=== PATIENT | male | born 2000 | race Caucasian/White ===

== ENCOUNTER 2023-11-12 09:03 | Outpatient (OUT) | payer MEDICAID, SELFPAY ==
[2023-11-12 09:50] LABS: Basophils Percent Auto 0.4 % (0.2-2.0); Eosinophils Percent Auto 0.3 % (0.9-7.0); Hematocrit 45.2 % (42.0-54.0); Hemoglobin 14.9 g/dL (14.0-18.0); Immature Granulocytes Abs Auto 0.02 10^3/uL (0.00-0.03); Immature Granulocytes Pct Auto 0.3 % (0.0-0.5); Lymphocytes Percent Auto 28.7 % (20.5-60.0); Mean Corpuscular Hemoglobin 27.9 pg (25.9-34.0); Mean Corpuscular Volume 84.6 fL (80.0-94.0); Monocytes Absolute Auto 0.7 10^3/uL (0.3-0.8); Monocytes Percent Auto 9.3 % (1.7-12.0); Neutrophils Absolute Auto 4.3 10^3/uL (1.4-6.5); Platelet Count 262 10^3/uL (150-450); Red Blood Count 5.34 10^6/uL (4.70-6.10); Red Cell Distribution Width 13.6 % (11.0-15.0)
[2023-11-12 10:46] LABS: Alanine Aminotransferase 31 U/L (16-63); Albumin Level 3.7 g/dL (3.4-5.0); Alkaline Phosphatase 131 U/L (46-116); Anion Gap 14.1; Aspartate Amino Transferase 18 U/L (15-37); BUN Creatinine Ratio 12.4; Bilirubin Total 0.3 mg/dL (0.2-1.0); Carbon Dioxide 23.9 mmol/L (21.0-32.0); Chloride 104 mmol/L (98-107); Chol HDL Ratio 5.8; Cholesterol 180 mg/dL (<=200); Estimated GFR (African America >60 (>=60); Estimated GFR (Non-African Ame >60 (>=60); Free T3 3.24 pg/mL (2.18-3.98); Globulin 3.7 g/dL; Glucose 102 mg/dL (74-106); HDL Cholesterol 31 mg/dL (40-60); Sodium 138 mmol/L (136-145); Thyroid Stimulating Hormone 1.049 uIU/mL (0.358-3.740); Total Protein 7.4 g/dL (6.4-8.2); Triglycerides 112 mg/dL (<=150); VLDL CHOLESTEROL 22.4 mg/dL
[2023-11-12 11:29] LABS: Estimated Average Glucose 100 mg/dL; Glycohemoglobin A1C 5.1 % (4.5-6.2)
[2023-11-13 11:11] LABS: Carbamazepine(Tegretol),S <0.5 ug/mL (4.0-12.0)
[2023-11-13 14:11] LABS: Insulin 60.6 uIU/mL (2.6-24.9)
== END 2023-11-12 09:04 | disposition home or self-care (01) ==
LOC: LAB 09:06
PROVIDERS: PCP Family Medicine; Visit Provider Family Medicine
DX: R53.83 Other fatigue (principal); F84.5 Asperger's syndrome; F90.9 Attention-deficit hyperactivity disorder, unspecified type; R73.09 Other abnormal glucose; D64.9 Anemia, unspecified
CPT/HCPCS: 36415; 80053; 80061; 80156; 83036; 83525; 83540; 84436; 84443; 84481; 85025

== ENCOUNTER 2023-12-01 20:49 | Outpatient (OUT) | payer MEDICAID, SELFPAY ==
--- OUTSIDE RECORDS SUMMARY | 2023-12-01 20:52 | XMS_ITS | CCD ---
Author Organization [facility] Care Team Providers Care Teaching Fellow Name Role Phone KAYLI ., DR GRANDA Admitting Unavailable HOY ., DR GRANDA Attending Unavailable HOY ., DR GRANDA Primary Care Unavailable HOY ., DR GRANDA Admitting Unavailable HOY ., DR GRANDA Attending Unavailable HOY ., DR GRANDA Primary Care Unavailable HOY ., DR GRANDA Consulting Unavailable MISC, DR DAILEY Admitting Unavailable MISC, DR DAILEY Attending Unavailable HOY ., DR GRANDA Primary Care Unavailable MISC, DR DAILEY Consulting Unavailable HOY ., DR GRANDA Admitting Unavailable HOY ., DR GRANDA Attending Unavailable HOY ., DR GRANDA Primary Care Unavailable Matt Conteh Attending Unavailab le Matt Conteh Admitting Unavailab le NON STAFF Primary Care Unavailable JESUS ALBERTO MILAN Primary Care Unavailable HAN PRITCHARD Attending Unavailable HAN PRITCHARD Referring Unavailable JESUS ALBERTO MILAN Primary Care Unavailable Problems Active Problems Problem Classification Problem Date Documented Da te Episodic/Chronic Nutritional deficiencies (1 source) Vitamin D deficiency, unspecified; Translations: [VITAMIN D DEFICIENCY UNSPECIFIED] Onset: 03-30-2022 Chronic Other connective tissue disease (1 source) Hand pain Onset: 08-15-2023 Episodic Superficial injury; contusion (1 source) Contusion of right hand, initial encounter; Translations: [Contusion of right hand, initial encounter] Onset: 08-15-2023 Episodic Unclassified (1 source) Hand Injury Onset: 08-15-2023 Past or Other Problems Problem Classification Problem Date Documented Da te Episodic/Chronic Other aftercare (5 sources) Other watermaster (current) drug therapy; Translations: [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 No gross dislocations or subluxations. X-ray density bony structures grossly subjectively normal. IMPRESSION: * No acute fracture visualized Finalized by Ana Laura Sullivan MD on 08/15/2023 8:32 PM Normal [facility] OXCARBAZEPINE / TRILEPTALon 03-31-2022 Oxcarbazepine 6 ug/mL Critically low 10-35 [facility] Comment on above: Result Comment: This test was developed and its performance characteristics determined by [employer]. It has not been cleared or approved by the Food and Drug Administration. Detection Limit = 1 Performed By: #### O XCARB #### [facility] [address] [place] [address] Dr. Alicja Shannon INSULINon 03-28-2022 Insulin 25.2 uIU/mL Critically high 2.6-24.9 [facility] Comment on above: Performed By: #### I NSULIN #### [facility] [address] [place] [address] Dr. Alicja Shannon CBC AUTO DIFFon 03-27-2022 BASO # 0.0 103/ul Normal 0.0-0.1 [facility] Comment on above: Performed By: #### C BC #### [facility] [address] [place] [address] Dr. Alicja Shannon Basophils/100 WBC (Bld) 0.4 % Normal 0.2-2.0 [facility] Comment on above: Performed By: #### C BC #### [facility] [address] [place] [address] Dr. Alicja Shannon EO # 0.1 103/ul Normal 0.0-0.7 [facility] Comment on above: Performed By: #### C BC #### [facility] [address] [place] [address] Dr. Alicja Shannon Eosinophils/100 WBC (Bld) 0.6 % Critically low 0.9-7.0 [facility] Comment on above: Performed By: #### C BC #### [facility] [address] [place] [address] Dr. Alicja Shannon Erythrocyte distribution width (RBC) [Ratio] 13.3 % Normal 11.0-15.0 [facility] Comment on above: Performed By: #### C BC #### [facility] [address] [place] [address] Dr. Alicja Shannon Hematocrit (Bld) [Volume fraction] 42.6 % Normal 42.0-54.0 [facility] Comment on above: Performed By: #### C BC #### [facility] [address] [place] [address] Dr. Alicja Shannon Hemoglobin (Bld) [Mass/Vol] 14.2 g/dL Normal 14.0-18.0 [facility] Comment on above: Performed By: #### C BC #### [facility] [address] [place] [address] Dr. Alicja Shannon IG # 0.04 10e3/ul Critically high 0.00-0.03 [facility] Comment on above: Performed By: #### C BC #### [facility] [address] [place] [address] Dr. Alicja Shannon IG % 0.4 % Normal 0.0-0.5 [facility] Comment on above: Performed By: #### C BC #### [facility] [address] [place] [address] Dr. Alicja Shannon LYMPH # 2.6 103/ul Normal 1.2-3.8 [facility] Comment on above: Performed By: #### C BC #### [facility] [address] [place] [address] Dr. Alicja Shannon Lymphocytes/100 WBC (Bld) 29.4 % Normal 20.5-60.0 [facility] Comment on above: Performed By: #### C BC #### [facility] [address] [place] [address] Dr. Alicja Shannon MANUAL DIFF REQ NO Normal [facility] Comment on above: Performed By: #### C BC #### [facility] [address] [address] [address] Alicja Shannon MCH (RBC) [Entitic mass] 27.5 pg Normal 25.9-34.0 [facility] Comment on above: Performed By: #### C BC #### [facility] [address] [address] [address] Alicja Shannon MCHC (RBC) [Mass/Vol] 33.3 g/dL Normal 29.9-35.2 [facility] Comment on above: Performed By: #### C BC #### [facility] [address] [place] [address] Dr. Alicja Shannon MCV (RBC) [Entitic vol] 82.6 fL Normal 80.0-94.0 [facility] Comment on above: Performed By: #### C BC #### [facility] [address] [place] [address] Dr. Alicja Shannon MONO # 0.5 103/ul Normal 0.3-0.8 [facility] Comment on above: Performed By: #### C BC #### [facility] [address] [place] [address] Dr. Alicja Shannon Monocytes/100 WBC (Bld) 5.2 % Normal 1.7-12.0 [facility] Comment on above: Performed By: #### C BC #### [facility] [address] [place] [address] Dr. Alicja Shannon NEUT # 5.7 103/ul Normal 1.4-6.5 [facility] Comment on above: Performed By: #### C BC #### [facility] [address] [place] [address] Dr. Alicja Shannon Neutrophils/100 WBC (Bld) 64.0 % Normal 43.0-75.0 [facility] Comment on above: Performed By: #### C BC #### [facility] [address] [place] [address] Dr. Alicja Shannon Platelet mean volume (Bld) [Entitic vol] 9.7 fL Normal 9.5-13.5 [facility] Comment on above: Performed By: #### C BC #### [facility] [address] [address] [address] Alicja Shannon PLT 322 103/ul Normal 150-450 [facility] Comment on above: Performed By: #### C BC #### [facility] [address] [address] [address] Alicja Shannon RBC 5.16 106/ul Normal 4.70-6.10 [facility] Comment on above: Performed By: #### C BC #### [facility] [address] [address] [address] Alicja Shannon WBC 9.0 103/ul Normal 4.0-11.0 [facility] Comment on above: Performed By: #### C BC #### [facility] [address] [place] [address] Dr. Alicja Shannon FREE THYROXINE INDEX T7on FTI 2.21 Normal 1.30-4.50 [facility] Comment on above: Performed By: #### B 12FOL, VITAD, IRON #### [facility] [address] [address] [address] Alicja Shannon T3U 32.0 % Critically low 33.0-40.0 [facility] Comment on above: Performed By: #### B 12FOL, VITAD, IRON #### [facility] [address] [place] [address] Dr. Alicja Shannon T4 [Mass/Vol] 6.90 ug/dL Normal 4.50-12.10 [facility] Comment on above: Performed By: #### B 12FOL, VITAD, IRON #### [facility] [address] [address] [address] Alicja Shannon GLYCOHEMOGLOBIN A1Con 2022 ADA RECOMMENDATION SEE BELOW Normal [facility] Comment on above: Result Comment: ADA RECOMMENDED LIMIT 4.0 - 6.0 ADA THERAPEUTIC TARGET < 7.0 ACTION SUGGESTED > 7.0 Performed By: #### A 1C #### [facility] [address] [place], [place] [id number] Dr. Alicja Shannon Glucose [Mass/Vol] 105 mg/dL Normal [facility] Comment on above: Performed By: #### A 1C #### [facility] [address] [address] [address] Alicja Shannon HbA1c (Bld) [Mass fraction] 5.3 % Normal 4.5-6.2 [facility] Comment on above: Performed By: #### A 1C #### [facility] [address] [address] [address] Alicja Shannon IRONon 03-27-2022 Iron [Mass/Vol] 52.0 ug/dL Critically low 65.0-175.0 [facility] Comment on above: Performed By: #### B 12FOL, VITAD, IRON #### [facility] [address] [place] [address] Dr. Alicja Shannon LIPID PROFILEon 03-27-2022 CHOL-HDL RATIO NORM SEE BELOW Normal [facility] Comment on above: Result Comment: 3.3 - 4.4 LOW RISK 4.4 - 7.1 AVERAGE RISK 7.1 - 11.0 MODERATE RISK >11.0 HIGH RISK Performed By: #### B 12FOL, VITAD, IRON #### [facility] [address] [place] [address] Dr. Alicja Shannon Cholesterol [Mass/Vol] 181 mg/dL Normal <=200 [facility] Comment on above: Performed By: #### B 12FOL, VITAD, IRON #### [facility] [address] [address] [address] Alicja Shannon Cholesterol in HDL [Mass/Vol] 29 mg/dL Critically low 40-60 [facility] Comment on above: Performed By: #### B 12FOL, VITAD, IRON #### [facility] [address] [place] [address] Dr. Alicja Shannon Cholesterol in LDL [Mass/Vol] 136.8 mg/dL Normal [facility] Comment on above: Performed By: #### B 12FOL, VITAD, IRON #### [facility] [address] [place] [address] Dr. Alicja Shannon Cholesterol.total/Cho lesterol in HDL [Mass ratio] 6.2 {ratio} Normal [facility] Comment on above: Performed By: #### B 12FOL, VITAD, IRON #### [facility] [address] [address] [address] Alicja Shannon HDL NORMAL > or = 60 mg/dl - LOW CARDIOVASCULAR RISK <40 mg/dl - HIGH CARDIOVASCULAR RISK Normal [facility] Comment on above: Performed By: #### B 12FOL, VITAD, IRON #### [facility] [address] [address] [address] Alicja Shannon LDL CALC NORMAL SEE BELOW Normal [facility] Comment on above: Result Comment: <100 mg/dl OPTIMAL 100 - 129 mg/dl NEAR OR ABOVE OPTIMAL 130 - 159 mg/dl BORDERLINE HIGH 160 - 189 mg/dl HIGH >190 mg/dl VERY HIGH Performed By: #### B 12FOL, VITAD, IRON #### [facility] [address] [address] [address] Alicja Shannon Triglyceride [Mass/Vol] 76 mg/dL Normal <=150 [facility] Comment on above: Performed By: #### B 12FOL, VITAD, IRON #### [facility] [address] [address] [address] Alicja Shannon VLDL CALC 15.2 mg/dL Normal [facility] Comment on above: Performed By: #### B 12FOL, VITAD, IRON #### [facility] [address] [address] [address] Alicja Shannon PROF 14(COMP METB)on 023 Albumin [Mass/Vol] 3.5 g/dL Normal 3.4-5.0 [facility] Comment on above: Performed By: #### T SH, CMP, T7, LIPID, URIC #### [facility] [address] [address] [address] Alicja Shannon Albumin/Globulin [Mass ratio] 0.8 {ratio} Normal [facility] Comment on above: Performed By: #### T SH, CMP, T7, LIPID, URIC #### [facility] [address] [address] [address] Alicja Shannon ALP [Catalytic activity/Vol] 139 U/L Critically high 46-116 [facility] Comment on above: Performed By: #### T SH, CMP, T7, LIPID, URIC #### [facility] [address] [address] [address] Alicja Shannon ALT [Catalytic activity/Vol] 24 U/L Normal 16-63 [facility] Comment on above: Performed By: #### T SH, CMP, T7, LIPID, URIC #### [facility] [address] [place] [address] Dr. Alicja Shannon Anion gap [Moles/Vol] 13.9 mmol/L Normal [facility] Comment on above: Performed By: #### T SH, CMP, T7, LIPID, URIC #### [facility] [address] [place] [address] Dr. Alicja Shannon AST [Catalytic activity/Vol] 18 U/L Normal 15-37 [facility] Comment on above: Performed By: #### T SH, CMP, T7, LIPID, URIC #### [facility] [address] [place] [address] Dr. Alicja Shannon Bilirubin [Mass/Vol] 0.2 mg/dL Normal 0.2-1.0 [facility] Comment on above: Performed By: #### T SH, CMP, T7, LIPID, URIC #### [facility] [address] [place] [address] Dr. Alicja Shannon Calcium [Mass/Vol] 8.7 mg/dL Normal 8.5-10.1 [facility] Comment on above: Performed By: #### T SH, CMP, T7, LIPID, URIC #### [facility] [address] [place] [address] Dr. Alicja Shannon Chloride [Moles/Vol] 104 mmol/L Normal 98-107 [facility] Comment on above: Performed By: #### T SH, CMP, T7, LIPID, URIC #### [facility] [address] [place] [address] Dr. Alicja Shannon CO2 [Moles/Vol] 24.9 mmol/L Normal 21.0-32.0 [facility] Comment on above: Performed By: #### T SH, CMP, T7, LIPID, URIC #### [facility] [address] [address] [address] Alicja Shannon Creatinine [Mass/Vol] 1.00 mg/dL Normal 0.70-1.30 [facility] Comment on above: Performed By: #### T SH, CMP, T7, LIPID, URIC #### [facility] [address] [address] [address] Alicja Shannon EGFR-AF CHINESE >60 Normal >=60 [facility] Comment on above: Performed By: #### T SH, CMP, T7, LIPID, URIC #### [facility] [address] [place] [address] Dr. Alicja Shannon EGFR-NON AF CHINESE >60 Normal >=60 [facility] Comment on above: Performed By: #### T SH, CMP, T7, LIPID, URIC #### [facility] [address] [address] [address] Alicja Shannon Globulin (S) [Mass/Vol] 4.2 g/dL Normal [facility] Comment on above: Performed By: #### T SH, CMP, T7, LIPID, URIC #### [facility] [address] [address] [address] Alicja Shannon Glucose [Mass/Vol] 89 mg/dL Normal 74-106 [facility] Comment on above: Performed By: #### T SH, CMP, T7, LIPID, URIC #### [facility] [address] [address] [address] Alicja Shannon Potassium [Moles/Vol] 3.8 mmol/L Normal 3.5-5.1 [facility] Comment on above: Performed By: #### T SH, CMP, T7, LIPID, URIC #### [facility] [address] [address] [address] Alicja Shannon Protein [Mass/Vol] 7.7 g/dL Normal 6.4-8.2 [facility] Comment on above: Performed By: #### T SH, CMP, T7, LIPID, URIC #### [facility] [address] [address] [address] Alicja Shannon Sodium [Moles/Vol] 139 mmol/L Normal 136-145 [facility] Comment on above: Performed By: #### T SH, CMP, T7, LIPID, URIC #### [facility] [address] [place] [address] Dr. Alicja Shannon Urea nitrogen [Mass/Vol] 17.0 mg/dL Normal 7.0-18.0 [facility] Comment on above: Performed By: #### T SH, CMP, T7, LIPID, URIC #### [facility] [address] [place] [address] Dr. Alicja Shannon Urea nitrogen/Creatinine [Mass ratio] 17.0 mg/mg Normal [facility] Comment on above: Performed By: #### T SH, CMP, T7, LIPID, URIC #### [facility] [address] [place] [address] Dr. Alicja Shannon TSHon 03-27-2022 TSH 2.036 uIU/mL Normal 0.358-3.740 [facility] Comment on above: Performed By: #### T SH, CMP, T7, LIPID, URIC #### [facility] [address] [place] [address] Dr. Alicja Shannon URIC ACID SERUMon 03-27-2022 Urate [Mass/Vol] 7.4 mg/dL Critically high 3.5-7.2 [facility] Comment on above: Performed By: #### T SH, CMP, T7, LIPID, URIC #### [facility] [address] [place] [address] Dr. Alicja Shannon VIT B12 AND FOLATEon 023 Cobalamin (Vitamin B12) [Mass/Vol] 519.0 pg/mL Normal 193.0-986.0 [facility] Comment on above: Performed By: #### B 12FOL, VITAD, IRON #### [facility] [address] [place] [address] Dr. Alicja Shannon FOLATE 3.80 ng/mL Critically low 8.60-58.90 [facility] Comment on above: Performed By: #### B 12FOL, VITAD, IRON #### [facility] [address] [address] [address] Alicja Shannon VITAMIN D 25 OHon 03-27-2022 VIT D 25-OH 6.9 ng/mL Normal [facility] Comment on above: Performed By: #### B 12FOL, VITAD, IRON #### [facility] [address] [address] [address] Alicja Shannon VIT D RANGES SEE BELOW Normal [facility] Comment on above: Result Comment: <20 ng/mL Vit D deficient 20 - <30 ng/mL Vit D insufficient 30 - 100 ng/mL Vit D sufficient >100 ng/mL Potential Toxicity Performed By: #### B 12FOL, VITAD, IRON #### [facility] [address] [address] [address] Alicja Shannon Formson 09-16-2020 Forms [id number] 6#1.00CD:127 Normal [facility] Physician Referralon 021 Physician Referral [id number] #1.00CD:127 Normal [facility] Ambulatory Clinical Summaryo n 04-04-2020 Ambulatory Clinical Summary {[id number] Normal [facility] Gastroenterology Office/Clin ic Noteon 04-04-2020 Gastroenterology Office/Clinic Note Chief Complaint 2 week follow up History of Present Illness This is a 19 year old male who presents today for follow up, Rectal bleed, prescribed MiraLAX and fiber, I also asked him to take hydrocortisone suppositories which she has been taking only for 3 days, partially improved - Consider infra-red if no improvement Anal pain, prescribed hydrocortisone suppository at last visit. Partial improvement Constipation, on MiraLAX and fiber, Improved. Review of Systems PHQ Score Initial Depression Screen Score: 0 Constitutional: no fever, no chills, no sweats, no weakness. ENMT: no ear pain, no sore throat, no congestion, no hoarseness. Respiratory: No shortness of breath , no cough, no orthopnea, no wheezing. Cardiovascular: no chest pain, no palpitations, no edema. Gastrointestinal: as in the HPI Musculoskeletal: no back pain, no trauma. Neurologic: no headache, no dizziness, no numbness, no weakness. Physical Exam Vitals & Measurements T: 36.2 ?C (Temporal Artery) HR: 95(Peripheral) RR: 16 BP: 109/64 HT: 182 cm HT: 182.0 cm WT: 174.1 kg WT: 174.1 kg BMI: 52.56 General: Well developed, well nourished, in no acute distress Eyes: extraocular movements intact. Non-Icteric Pulmonary/Respirator y: No cough noted during interview. Normal Respiratory efforts Abdomen: No abdominal distension Extremity: No clubbing, cyanosis, edema, or deformity in the exposed areas of the upper and lower extremities. Normal ROM. Neurologic: Grossly normal, no gross focal deficits Assessment/Plan 1. Rectal bleed, (K62.5: Hemorrhage of anus and rectum)Rectal bleed Probably hemorrhoids No FHX of colon CA, No AC colonoscopy 10/04/19 which showed some prominent rectal veins, some perianal irritation, no ulcerations or bleeding. Increase Metamucil to 4 caps Continue Anusol 7 days course (has done 3 days so far) May consider infra-red during next visit Ordered: psyllium, 2,100 mg = 4 cap(s), Oral, Daily, Take 2 hour apart from the other medications with at least 8 ounces of water, # 160 cap(s), Refills(s) 1, Pharmacy: [id number], 182, cm, 04/04/20 13:43:00 EST, Height/Length Dosing, 174.1, kg, 04/04... 2. Anal pain (K62.89: Other specified diseases of anus and rectum) Hemorrhoids VS anal fissure Partially improved with Anusol/MiraLAX/fiber colonoscopy 10/04/19 which showed some prominent rectal veins, some perianal irritation, no ulcerations or bleeding. Follow-up With When Contact Information Yvon Tolliver MD In 2 weeks [address], [place] [address]- Additional Instructions: Problem List/Past Medical History Ongoing ADHD Anal pain Aspergers' syndrome Bladder mass Depression Flank pain Gross hematuria History of bladder cancer History of kidney stones Hydronephrosis with obstructing calculus Left lower quadrant pain Morbid obesity with body mass index (BMI) of 45.0 to 49.9 in adult Rectal bleed Urethral meatal stenosis Historical No qualifying data Procedure/Surgical History Cystoscopy (02/01/2019), Cystoscopy and bladder biopsy (01/26/2019), Cystoscopy (01/18/2019), cyst removed from back (2017), Tonsillectomy (2016), Manipulation of deviated nasal septum (2015), Repair of multiple tendons in the flexor compartment of the forearm, wrist or hand (2014). Medications Ativan 2 mg oral tablet, 2 mg= 1 tab(s), Oral, BID buPROPion, Oral cloNIDine 0.2 mg Tab, 0.2 mg= 1 tab(s), Oral, Bedtime duloxetine 60 mg Cap-DR, Oral, Daily Metamucil 525 mg oral capsule, 2100 mg= 4 cap(s), Oral, Daily, 1 refills Miralax 3350 17 gram packet, 17 gm, Oral, Daily, 3 refills oxcarbazepine 300 mg Tab, 600 mg= 2 tab(s), Oral, BID Allergies No Known Allergies Social History Alcohol - Denies Alcohol Use, 01/11/2019 Current, Liquor, 1-2 times per year, 01/18/2019 Substance Abuse - No Risk, 01/18/2019 Tobacco - Denies Tobacco Use, 01/11/2019 Former smoker, quit more than 30 days ago Tobacco Use:. Never Smokeless Tobacco Use:. Cigarettes, Cigars, 04/04/2020 Family History Diabetes mellitus type 2: Mother. Heart disease: Mother. Normal [facility] Comment on above: Result Comment: Elec tronically Signed By: Yvon Tolliver MD\.br\Date and Time Signed: 04/04/20 14:18 EST Ambulatory Clinical Summaryo n 03-21-2020 Ambulatory Clinical Summary {[id number] Normal [facility] Gastroenterology Office/Clin ic Noteon 03-21-2020 Gastroenterology Office/Clinic Note Chief Complaint 4 week f/u History of Present Illness This is a 19 year old male with PHX of bladder CA, Bipolar disorder and Asperger?s disorder who presents today for follow-up Rectal bleeding, started 09/2019, I put him on fiber but this did not help. He saw Dr Diaz at [facility] 09/25/19, had a colonoscopy 10/04/19 which showed some prominent rectal veins, some perianal irritation, no ulcerations or bleeding. - Hgb & Hct ordered at last visit but not done Anal pain, mild with BMs Constipation, stool is hard, has straining No FHX of colon CA, No AC. Review of Systems PHQ Score Initial Depression Screen Score: 0 Constitutional: no fever, no chills, no sweats, no weakness. ENMT: no ear pain, no sore throat, no congestion, no hoarseness. Respiratory: No shortness of breath , no cough, no orthopnea, no wheezing. Cardiovascular: no chest pain, no palpitations, no edema. Gastrointestinal: as in the HPI Musculoskeletal: no back pain, no trauma. Neurologic: no headache, no dizziness, no numbness, no weakness. Physical Exam Vitals & Measurements T: 36.5 ?C (Temporal Artery) HR: 56(Peripheral) RR: 16 BP: 140/65 HT: 182.0 cm HT: 182 cm WT: 175.0 kg WT: 175 kg BMI: 52.83 General: Well developed, well nourished, in no acute distress Eyes: extraocular movements intact. Non-Icteric Pulmonary/Respirator y: No cough noted during interview. Normal Respiratory efforts Abdomen: No abdominal distension Extremity: No clubbing, cyanosis, edema, or deformity in the exposed areas of the upper and lower extremities. Normal ROM. Neurologic: Grossly normal, no gross focal deficits Assessment/Plan 1. Rectal bleed (K62.5: Hemorrhage of anus and rectum) Probably hemorrhoids No FHX of colon CA, No AC colonoscopy 10/04/19 which showed some prominent rectal veins, some perianal irritation, no ulcerations or bleeding. MiraLAX Metamucil Rectal supp (he may not do it is he is uncomfortable) If no improvement will use infra-red Ordered: polyethylene glycol 3350, 17 gram, Oral, Daily, # 255 gram, Refills(s) 3, Pharmacy: [facility] #[id number], 182, cm, 03/21/20 13:54:00 EST, Height/Length Dosing, 175, kg, 03/21/20 13:54:00 EST, Weight Dosing 2. Anal pain (K62.89: Other specified diseases of anus and rectum) ? hemorrhoids vs anal fissure Ordered: hydrocortisone topical, 25 mg = 1 supp, Rectal, BID, X 7 day(s), # 14 supp, Refills(s) 0, Pharmacy: [facility] #[id number], 182, cm, 03/21/20 13:54:00 EST, Height/Length Dosing, 175, kg, 03/21/20 13:54:00 EST, Weight Dosing 3. Constipation (K59.00: Constipation, unspecified) Uncontrolled MiraLAX Metamucil Follow-up With When Contact Information Yvon Tolliver MD In [address] [place], [place] [address]dom[facility], [place] [address]- Additional Instructions: Problem List/Past Medical History Ongoing ADHD Anal pain Aspergers' syndrome Bladder mass Depression Flank pain Gross hematuria History of bladder cancer History of kidney stones Hydronephrosis with obstructing calculus Left lower quadrant pain Morbid obesity with body mass index (BMI) of 45.0 to 49.9 in adult Rectal bleed Urethral meatal stenosis Historical No qualifying data Procedure/Surgical History Cystoscopy (02/01/2019), Cystoscopy and bladder biopsy (01/26/2019), Cystoscopy (01/18/2019), cyst removed from back (2017), Tonsillectomy (2017), Manipulation of deviated nasal septum (2016), Repair of multiple tendons in the flexor compartment of the forearm, wrist or hand (2014). Medications Anusol-HC 25 mg rectal suppository, 25 mg= 1 supp, Rectal, BID Ativan 2 mg oral tablet, 2 mg= 1 tab(s), Oral, BID buPROPion, Oral cloNIDine 0.2 mg Tab, 0.2 mg= 1 tab(s), Oral, Bedtime duloxetine 60 mg Cap-DR, Oral, Daily Metamucil 525 mg oral capsule, 1050 mg= 2 cap(s), Oral, Daily, 1 refills Miralax 3350 17 gram packet, 17 gm, Oral, Daily, 3 refills oxcarbazepine 300 mg Tab, 600 mg= 2 tab(s), Oral, BID Allergies No Known Allergies Social History Alcohol - Denies Alcohol Use, 01/11/2019 Current, Liquor, 1-2 times per year, 01/18/2019 Substance Abuse - No Risk, 01/18/2019 Tobacco - Denies Tobacco Use, 01/11/2019 Former smoker, quit more than 30 days ago Tobacco Use:. Never Smokeless Tobacco Use:. Cigarettes, Cigars, 03/21/2020 Family History Diabetes mellitus type 2: Mother. Heart disease: Mother. Normal [facility] Comment on above: Result Comment: Elec tronically Signed By: Sahil Velasco MD, Yvon\.br\Date and Time Signed: 03/21/20 19:32 EST Ambulatory Clinical Summaryo n 02-19-2020 Ambulatory Clinical Summary {[id number]}CD:[id number] Normal [facility] Gastroenterology Office/Clin ic Noteon 02-19-2020 Gastroenterology Office/Clinic Note Chief Complaint Self referred for rectal bleeding History of Present Illness This is a 19 year old male with PHX of bladder CA, Bipolar disorder and Asperger?s disorder who presents today self-referred for complaints of, Rectal bleeding, started in September, intermittent, bright and dark red blood, rectal pain after a BM He saw Dr Diaz at [facility] 09/25/19, had a colonoscopy 10/04/19 which showed some prominent rectal veins, some perianal irritation, no ulcerations or bleeding. He has a BM every other day,no straining, multiple BMs per day No FHX of colon CA, No AC. Review of Systems PHQ Score Initial Depression Screen Score: 1 Constitutional: no fever, no chills, no sweats, no weakness. Skin: no Jaundice, no rash, no lesions, no petechiae. ENMT: no ear pain, no sore throat, no congestion, no hoarseness. Respiratory: shortness of breath , no cough, no orthopnea, no wheezing. Cardiovascular: no chest pain, no palpitations, no edema. Gastrointestinal: as in the HPI Genitourinary: no dysuria, no hematuria, no discharge, no pain. Musculoskeletal: no back pain, no trauma. Neurologic: no headache, no dizziness, no numbness, no weakness. Psychiatric: no sleeping problems, no irritability, no mood swings/depression. Heme/Lymph: no bleeding tendency, no bruising tendency, no petechiae. Allergy/Immuno logic: no seasonal allergies, no food allergies, no recurrent infections, no impaired immunity. Physical Exam Vitals & Measurements T: 36.5 ?C (Temporal Artery) HR: 93(Peripheral) RR: 16 BP: 114/49 HT: 182.88 cm HT: 182.9 cm WT: 172 kg WT: 172.0 kg BMI: 51.43 General: Well developed, well nourished, in no acute distress Eyes: Pupils equal, round, and reactive to light. Conjunctivae and sclerae normal, and extraocular movements intact Neck: Neck supple, no swelling noted Lungs: Normal respiratory effort, symmetrical breathing bilaterally Abdomen: Non-distended, nontender Musculoskeletal: Normal range of motion. No erythema, edema, or ecchymosis in the exposed areas Extremity: No clubbing, cyanosis, edema, or deformity, with normal ROM in both upper and lower bilateral extremities Neurologic: Grossly normal, no gross focal deficits Skin: No rashes, ulcerations, or suspicious lesions in the examined exposed areas Mental Status: Alert and oriented x3. Normal mood and affect Assessment/Plan 1. Rectal bleed (K62.5: Hemorrhage of anus and rectum) Probably hemorrhoids vs anal fissure colonoscopy at [place] by Dr. Diaz 09/2019: prominent rectal veins and perianal irritation Average risk Metamucil H&H If no improvement repeat colonoscopy Ordered: psyllium, 1,050 mg = 2 cap(s), Oral, Daily, Take 2 hour apart from the other medications with at least 8 ounces of water, # 160 cap(s), Refills(s) 1, Pharmacy: [facility] #[id number], 182.9, cm, 02/19/20 8:51:00 EST, Height/Length Dosing, 172, kg, 02/18/... Hemoglobin and Hematocrit Follow-up With When Contact Information Abdal Rod MD, Sulieman In 4 weeks [address] [place] [address]- Additional Instructions: Problem List/Past Medical History Ongoing ADHD Aspergers' syndrome Bladder mass Depression Flank pain Gross hematuria History of bladder cancer History of kidney stones Hydronephrosis with obstructing calculus Left lower quadrant pain Morbid obesity with body mass index (BMI) of 45.0 to 49.9 in adult Urethral meatal stenosis Historical No qualifying data Procedure/Surgical History Cystoscopy (02/01/2019), Cystoscopy and bladder biopsy (01/26/2019), Cystoscopy (01/18/2019), cyst removed from back (2017), Tonsillectomy (2016), Manipulation of deviated nasal septum (2015), Repair of multiple tendons in the flexor compartment of the forearm, wrist or hand (2014). Medications Ativan 2 mg oral tablet, 2 mg= 1 tab(s), Oral, BID buPROPion, Oral cloNIDine 0.2 mg Tab, 0.2 mg= 1 tab(s), Oral, Bedtime duloxetine 60 mg Cap-DR, Oral, Daily Metamucil 525 mg oral capsule, 1050 mg= 2 cap(s), Oral, Daily, 1 refills oxcarbazepine 300 mg Tab, 600 mg= 2 tab(s), Oral, BID Allergies No Known Allergies Social History Alcohol - Denies Alcohol Use, 01/11/2019 Current, Liquor, 1-2 times per year, 01/18/2019 Substance Abuse - No Risk, 01/18/2019 Tobacco - Denies Tobacco Use, 01/11/2019 Former smoker, quit more than 30 days ago Tobacco Use:. Never Smokeless Tobacco Use:. Cigarettes, Cigars, 02/19/2020 Family History Diabetes mellitus type 2: Mother. Heart disease: Mother. Normal [facility] Comment on above: Result Comment: Elec tronically Signed By: Yvon Tolliver MD\.br\Date and Time Signed: 02/19/20 09:15 EST Outside Colonoscopyon 2019 Outside Colonoscopy [id number] #1.00CD:127 Normal [facility] [place] 09-28-2019 Consent [id number] #1.00CD:127 Normal [facility] Consultation Noteon 09-28-19 Consultation Note [id number] #1.00CD:127 Normal [facility] SURGICAL PATHOLOGYon 019 SURGICAL PATHOLOGY Specimen #: [id number] Submitting Physician: ALICJA SHANNON M.D. FINAL DIAGNOSIS Outside slide consultation, [facility], [place], [place] Urinary bladder, biopsy ([id number], A1-A4; 01/18/2019) - Non-invasive papillary urothelial carcinoma, low-grade, with a predominantly inverted/endophytic architecture. - No muscularis propria is present for evaluation. JOHN/valentina 01/27/2019 COMMENT Thank for sending this challenging case for consultation. The specimen consists of a transurethral resection of bladder tumor from a 18-year-old male. We agree with your assessment of a non-invasive low-grade papillary urothelial carcinoma with an inverted architecture. The neoplasm is comprised predominantly of an inverted/endophytic growth pattern of expansile round, regular nests of cells within the lamina propria. No evidence of invasion is identified. The urothelium appears hyperplastic with mild nuclear atypia. Rare mitotic figures are identified, which are present at the basal aspect of the nest of cells. The differential diagnosis includes an inverted papillary urothelial neoplasm of low malignant potential (PUNLMP) versus a low-grade papillary urothelial carcinoma with inverted architecture. We feel that the amount of nuclear atypia, disorganization, and loss of polarity exceeds that of an inverted PUNLMP, and therefore the neoplasm is best classified as a non-invasive low-grade papillary urothelial carcinoma with a predominant inverted/endophytic architecture. Select slides in this case were reviewed ath consensus conference on 01/27/19. Mike Clemens MD (Electronic Signature) SPECIMEN SUBMITTED A: 4 SLIDES ([id number]) CLINICAL DATA None provided. Patient ID #: Date of Report: 01/27/2019 Date of Procedure: 01/26/2019 Date of Receipt: 01/26/2019 Submitted by: ALICJA SHANNON M.D. Location: Diagnostic interpretation performed at [facility], [address] [place], [place] [id number]. CLIA Number: [id number] Normal [facility] Reference Lab Comment on above: Performed By: #### S #### See report for performing lab information. Encounters Encounter Date Encounter Type Care Provider Facility Start: 08-15-2023 End: 08-16-2023 Emergency department patient visit HAN Richey [facility] Start: 02-05-2023 ambulatory Matt Deluna acility:[facility] Start: 05-20-[address] JESUS ALBERTO MILAN . Facili ty:[facility] Start: 03-30-2022 Encounter for genera l adult medical examination without abnormal findings DR JESUS ALBERTO MILAN . [facility] Start: 03-27-2022 End: 03-28-[address] DOCTOR SPANN Facility:[facility] Start: 03-27-2022 End: 03-28-2022 Encounter for general adult medical examination without abnormal findings DR JESUS ALBERTO MILAN . Facility:[facility] Start: 01-29-[address] JESUS ALBERTO MILAN . Facili ty:[facility] Payers Date Payer Category Payer Medicaid [id number] 1999 Unknown [id number] 2.16.84 [id number] 1999 Unknown [id number] 2.16.84 [id number] 1999 Unknown [id number] 2.16.84 [id number] 1999 Unknown [id number] 2.16.84 [id number] 1999 Unknown [id number] 2.16.8 [id number] 1999 Unknown [id number] 2.16.8 [id number] 1959 Self-pay 1960 Unknown [id number] Unknown [id number] 2.16.8 [id number] Summary Purpose Family History No Family History Records FoundNo Family History Records FoundNo Family History Records FoundNo Family History Records FoundNo Family History Records Found Advance Directives No Advanced Directives Records FoundNo Advanced Directives Records FoundNo Advanced Directives Records FoundNo Advanced Directives Records FoundNo Advanced Directives Records Found Additional Source Comments (unrecognized sect ion and content) No Status Records FoundNo Status Records FoundNo Status Records FoundNo Status Records FoundNo Status Records Found INFORMATION SOURCE (unrecogn ized section and content) DATE CREATED AUTHOR 01/27/2019 [facility] DATE CREATED AUTHOR AUTHOR'S ORGANIZ ATION 09/16/2020 [facility] DATE CREATED AUTHOR AUTHOR'S ORGANIZ ATION 07/07/2022 [facility] DATE CREATED AUTHOR AUTHOR'S ORGANIZ ATION 04/19/2023 [facility] DATE CREATED AUTHOR AUTHOR'S ORGANIZ ATION 08/16/2023 [facility] FOR RECORDS PERTAINING TO PATIENTS WHO ARE OR HAVE BEEN ENROLLED IN A CHEMICAL DEPENDENCY/SUBSTANCEABUSE PROGRAM, SOME INFORMATION MAY BE OMITTED. This clinical summary was aggregated from multiple sources. Caution should be exercised in using it in the provision of clinical care. This summary normalizes information from multiple sources, and as a consequence, information in this document may materially change the coding, format and clinical context of patient data. In addition, data may be omitted in some cases. CLINICAL DECISIONS SHOULD BE BASED ON THE PRIMARY CLINICAL RECORDS. [facility] [employer] [facility]. provides no warranty or guarantee of the accuracy or completeness of information in this document.
== END 2023-12-01 20:50 | disposition home or self-care (01) ==
LOC: SLEEP 20:50
PROVIDERS: PCP Family Medicine; Visit Provider Family Medicine
DX: G47.33 Obstructive sleep apnea (adult) (pediatric) (principal)
CPT/HCPCS: 95810

== ENCOUNTER 2023-12-15 20:34 | Outpatient (OUT) | payer MEDICAID, SELFPAY ==
--- OUTSIDE RECORDS SUMMARY | 2023-12-15 20:37 | XMS_ITS | CCD ---
Author Organization [facility] Care Team Providers Care Screening Representative Name Role Phone KAYLI ., DR GRANDA [...] te Episodic/Chronic Other aftercare (5 sources) Other emt intermediate (current) drug therapy; Translations: [OTH CLOTH SANDER CURRENT DRUG THERAPY] Onset: 03-27-2022 Episodic Results [...] Sullivan MD on 08/15/2023 8:32 PM Normal [facility] OXCARBAZEPINE / TRILEPTALon 03-31-2022 Oxcarbazepine 6 ug/mL Critically low 10-35 [facility] Comment on above: Result Comment: This test was developed and its performance characteristics determined by [facility]. It has not been cleared or approved by the Food and Drug Administration. Detection Limit = 1 Performed By: #### O XCARB #### [facility] [address] [place] [address] Dr. Alicja Shannon INSULINon 03-28-2022 Insulin 25.2 uIU/mL Critically high 2.6-24.9 [facility] Comment on above: Performed By: #### I NSULIN #### [facility] [address] [place] [address] Dr. Alicja Shannon CBC AUTO DIFFon 03-27-2022 BASO # 0.0 103/ul Normal 0.0-0.1 [facility] Comment on above: Performed By: #### C BC #### [facility] [address] [place] [address] Dr. Alicja Shannon Basophils/100 WBC (Bld) 0.4 % Normal 0.2-2.0 [facility] Comment on above: Performed By: #### C BC #### [facility] [address] [place] [address] Dr. Alicja Shannon EO # 0.1 103/ul Normal 0.0-0.7 [facility] Comment on above: Performed By: #### C BC #### [facility] [address] [place] [address] Dr. Alicja Shannon Eosinophils/100 WBC (Bld) 0.6 % Critically low 0.9-7.0 [facility] Comment on above: Performed By: #### C BC #### [facility] [address] [place] [address] Dr. Alicja Shannon Erythrocyte distribution width (RBC) [Ratio] 13.3 % Normal 11.0-15.0 [facility] Comment on above: Performed By: #### C BC #### [facility] [address] [place] [address] Dr. Alicja Shannon Hematocrit (Bld) [Volume fraction] 42.6 % Normal 42.0-54.0 [facility] Comment on above: Performed By: #### C BC #### [facility] [address] [place] [address] Dr. Alicja Shannon Hemoglobin (Bld) [Mass/Vol] 14.2 g/dL Normal 14.0-18.0 [facility] Comment on above: Performed By: #### C BC #### [facility] [address] [place] [address] Dr. Alicja Shannon IG # 0.04 10e3/ul Critically high 0.00-0.03 [facility] Comment on above: Performed By: #### C BC #### [facility] [address] [place] [address] Dr. Alicja Shannon IG % 0.4 % Normal 0.0-0.5 [facility] Comment on above: Performed By: #### C BC #### [facility] [address] [place] [address] Dr. Alicja Shannon LYMPH # 2.6 103/ul Normal 1.2-3.8 [facility] Comment on above: Performed By: #### C BC #### [facility] [address] [place] [address] Dr. Alicja Shannon Lymphocytes/100 WBC (Bld) 29.4 % Normal 20.5-60.0 [facility] Comment on above: Performed By: #### C BC #### [facility] [address] [place] [address] Dr. Alicja Shannon MANUAL DIFF REQ NO Normal [facility] Comment on above: Performed By: #### C BC #### [facility] [address] [address] [address] Alicja Shannon MCH (RBC) [Entitic mass] 27.5 pg Normal 25.9-34.0 [facility] Comment on above: Performed By: #### C BC #### [facility] [address] [address] [address] Alicja Shannon MCHC (RBC) [Mass/Vol] 33.3 g/dL Normal 29.9-35.2 [facility] Comment on above: Performed By: #### C BC #### [facility] [address] [place] [address] Dr. Alicja Shannon MCV (RBC) [Entitic vol] 82.6 fL Normal 80.0-94.0 [facility] Comment on above: Performed By: #### C BC #### [facility] [address] [place] [address] Dr. Alicja Shannon MONO # 0.5 103/ul Normal 0.3-0.8 [facility] Comment on above: Performed By: #### C BC #### [facility] [address] [place] [address] Dr. Alicja Shannon Monocytes/100 WBC (Bld) 5.2 % Normal 1.7-12.0 [facility] Comment on above: Performed By: #### C BC #### [facility] [address] [place] [address] Dr. Alicja Shannon NEUT # 5.7 103/ul Normal 1.4-6.5 [facility] Comment on above: Performed By: #### C BC #### [facility] [address] [place] [address] Dr. Alicja Shannon Neutrophils/100 WBC (Bld) 64.0 % Normal 43.0-75.0 [facility] Comment on above: Performed By: #### C BC #### [facility] [address] [place] [address] Dr. Alicja Shannon Platelet mean volume (Bld) [Entitic vol] 9.7 fL Normal 9.5-13.5 [facility] Comment on above: Performed By: #### C BC #### [facility] [address] [address] [address] Alicja Shannon PLT 322 103/ul Normal 150-450 [facility] Comment on above: Performed By: #### C BC #### [facility] [address] [address] [address] Alicja Shannon RBC 5.16 106/ul Normal 4.70-6.10 [facility] Comment on above: Performed By: #### C BC #### [facility] [address] [address] [address] Alicja Shannon WBC 9.0 103/ul Normal 4.0-11.0 [facility] Comment on above: Performed By: #### C BC #### [facility] [address] [place] [address] Dr. Alicja Shannon FREE THYROXINE INDEX T7on FTI 2.21 Normal 1.30-4.50 [facility] Comment on above: Performed By: #### B 12FOL, VITAD, IRON #### [facility] [address] [address] [address] Alicja Shannon T3U 32.0 % Critically low 33.0-40.0 [facility] Comment on above: Performed By: #### B 12FOL, VITAD, IRON #### [facility] [address] [place] [address] Dr. Alicja Shannon T4 [Mass/Vol] 6.90 ug/dL Normal 4.50-12.10 [facility] Comment on above: Performed By: #### B 12FOL, VITAD, IRON #### [facility] [address] [address] [address] Alicja Shannon GLYCOHEMOGLOBIN A1Con 2022 ADA RECOMMENDATION SEE BELOW Normal [facility] Comment on above: Result Comment: ADA RECOMMENDED LIMIT 4.0 - 6.0 ADA THERAPEUTIC TARGET < 7.0 ACTION SUGGESTED > 7.0 Performed By: #### A 1C #### [facility] [address] [place], [place] [id number] Dr. Alicja Shannon Glucose [Mass/Vol] 105 mg/dL Normal [facility] Comment on above: Performed By: #### A 1C #### [facility] [address] [address] [address] Alicja Shannon HbA1c (Bld) [Mass fraction] 5.3 % Normal 4.5-6.2 [facility] Comment on above: Performed By: #### A 1C #### [facility] [address] [address] [address] Alicja Shannon IRONon 03-27-2022 Iron [Mass/Vol] 52.0 ug/dL Critically low 65.0-175.0 [facility] Comment on above: Performed By: #### B 12FOL, VITAD, IRON #### [facility] [address] [place] [address] Dr. Alicja Shannon LIPID PROFILEon 03-27-2022 CHOL-HDL RATIO NORM SEE BELOW Normal [facility] Comment on above: Result Comment: 3.3 - 4.4 LOW RISK 4.4 - 7.1 AVERAGE RISK 7.1 - 11.0 MODERATE RISK >11.0 HIGH RISK Performed By: #### B 12FOL, VITAD, IRON #### [facility] [address] [place] [address] Dr. Alicja Shannon Cholesterol [Mass/Vol] 181 mg/dL Normal <=200 [facility] Comment on above: Performed By: #### B 12FOL, VITAD, IRON #### [facility] [address] [address] [address] Alicja Shannon Cholesterol in HDL [Mass/Vol] 29 mg/dL Critically low 40-60 [facility] Comment on above: Performed By: #### B 12FOL, VITAD, IRON #### [facility] [address] [place] [address] Dr. Alicja Shannon Cholesterol in LDL [Mass/Vol] 136.8 mg/dL Normal [facility] Comment on above: Performed By: #### B 12FOL, VITAD, IRON #### [facility] [address] [place] [address] Dr. Alicja Shannon Cholesterol.total/Cho lesterol in HDL [Mass ratio] 6.2 {ratio} Normal [facility] Comment on above: Performed By: #### B 12FOL, VITAD, IRON #### [facility] [address] [address] [address] Alicja Shannon HDL NORMAL > or = 60 mg/dl - LOW CARDIOVASCULAR RISK <40 mg/dl - HIGH CARDIOVASCULAR RISK Normal [facility] Comment on above: Performed By: #### B 12FOL, VITAD, IRON #### [facility] [address] [address] [address] Alicja Shannon LDL CALC NORMAL SEE BELOW Normal [facility] Comment on above: Result Comment: <100 mg/dl OPTIMAL 100 - 129 mg/dl NEAR OR ABOVE OPTIMAL 130 - 159 mg/dl BORDERLINE HIGH 160 - 189 mg/dl HIGH >190 mg/dl VERY HIGH Performed By: #### B 12FOL, VITAD, IRON #### [facility] [address] [address] [address] Alicja Shannon Triglyceride [Mass/Vol] 76 mg/dL Normal <=150 [facility] Comment on above: Performed By: #### B 12FOL, VITAD, IRON #### [facility] [address] [address] [address] Alicja Shannon VLDL CALC 15.2 mg/dL Normal [facility] Comment on above: Performed By: #### B 12FOL, VITAD, IRON #### [facility] [address] [address] [address] Alicja Shannon PROF 14(COMP METB)on 023 Albumin [Mass/Vol] 3.5 g/dL Normal 3.4-5.0 [facility] Comment on above: Performed By: #### T SH, CMP, T7, LIPID, URIC #### [facility] [address] [address] [address] Alicja Shannon Albumin/Globulin [Mass ratio] 0.8 {ratio} Normal [facility] Comment on above: Performed By: #### T SH, CMP, T7, LIPID, URIC #### [facility] [address] [address] [address] Alicja Shannon ALP [Catalytic activity/Vol] 139 U/L Critically high 46-116 [facility] Comment on above: Performed By: #### T SH, CMP, T7, LIPID, URIC #### [facility] [address] [address] [address] Alicja Shannon ALT [Catalytic activity/Vol] 24 U/L Normal 16-63 [facility] Comment on above: Performed By: #### T SH, CMP, T7, LIPID, URIC #### [facility] [address] [place] [address] Dr. Alicja Shannon Anion gap [Moles/Vol] 13.9 mmol/L Normal [facility] Comment on above: Performed By: #### T SH, CMP, T7, LIPID, URIC #### [facility] [address] [place] [address] Dr. Alicja Shannon AST [Catalytic activity/Vol] 18 U/L Normal 15-37 [facility] Comment on above: Performed By: #### T SH, CMP, T7, LIPID, URIC #### [facility] [address] [place] [address] Dr. Alicja Shannon Bilirubin [Mass/Vol] 0.2 mg/dL Normal 0.2-1.0 [facility] Comment on above: Performed By: #### T SH, CMP, T7, LIPID, URIC #### [facility] [address] [place] [address] Dr. Alicja Shannon Calcium [Mass/Vol] 8.7 mg/dL Normal 8.5-10.1 [facility] Comment on above: Performed By: #### T SH, CMP, T7, LIPID, URIC #### [facility] [address] [place] [address] Dr. Alicja Shannon Chloride [Moles/Vol] 104 mmol/L Normal 98-107 [facility] Comment on above: Performed By: #### T SH, CMP, T7, LIPID, URIC #### [facility] [address] [place] [address] Dr. Alicja Shannon CO2 [Moles/Vol] 24.9 mmol/L Normal 21.0-32.0 [facility] Comment on above: Performed By: #### T SH, CMP, T7, LIPID, URIC #### [facility] [address] [address] [address] Alicja Shannon Creatinine [Mass/Vol] 1.00 mg/dL Normal 0.70-1.30 [facility] Comment on above: Performed By: #### T SH, CMP, T7, LIPID, URIC #### [facility] [address] [address] [address] Alicja Shannon EGFR-AF GAMBIAN >60 Normal >=60 [facility] Comment on above: Performed By: #### T SH, CMP, T7, LIPID, URIC #### [facility] [address] [place] [address] Dr. Alicja Shannon EGFR-NON AF GAMBIAN >60 Normal >=60 [facility] Comment on above: Performed By: #### T SH, CMP, T7, LIPID, URIC #### [facility] [address] [address] [address] Alicja Shannon Globulin (S) [Mass/Vol] 4.2 g/dL Normal [facility] Comment on above: Performed By: #### T SH, CMP, T7, LIPID, URIC #### [facility] [address] [address] [address] Alicja Shannon Glucose [Mass/Vol] 89 mg/dL Normal 74-106 [facility] Comment on above: Performed By: #### T SH, CMP, T7, LIPID, URIC #### [facility] [address] [address] [address] Alicja Shannon Potassium [Moles/Vol] 3.8 mmol/L Normal 3.5-5.1 [facility] Comment on above: Performed By: #### T SH, CMP, T7, LIPID, URIC #### [facility] [address] [address] [address] Alicja Shannon Protein [Mass/Vol] 7.7 g/dL Normal 6.4-8.2 [facility] Comment on above: Performed By: #### T SH, CMP, T7, LIPID, URIC #### [facility] [address] [address] [address] Alicja Shannon Sodium [Moles/Vol] 139 mmol/L Normal 136-145 [facility] Comment on above: Performed By: #### T SH, CMP, T7, LIPID, URIC #### [facility] [address] [place] [address] Dr. Alicja Shannon Urea nitrogen [Mass/Vol] 17.0 mg/dL Normal 7.0-18.0 [facility] Comment on above: Performed By: #### T SH, CMP, T7, LIPID, URIC #### [facility] [address] [place] [address] Dr. Alicja Shannon Urea nitrogen/Creatinine [Mass ratio] 17.0 mg/mg Normal [facility] Comment on above: Performed By: #### T SH, CMP, T7, LIPID, URIC #### [facility] [address] [place] [address] Dr. Alicja Shannon TSHon 03-27-2022 TSH 2.036 uIU/mL Normal 0.358-3.740 [facility] Comment on above: Performed By: #### T SH, CMP, T7, LIPID, URIC #### [facility] [address] [place] [address] Dr. Alicja Shannon URIC ACID SERUMon 03-27-2022 Urate [Mass/Vol] 7.4 mg/dL Critically high 3.5-7.2 [facility] Comment on above: Performed By: #### T SH, CMP, T7, LIPID, URIC #### [facility] [address] [place] [address] Dr. Alicja Shannon VIT B12 AND FOLATEon 023 Cobalamin (Vitamin B12) [Mass/Vol] 519.0 pg/mL Normal 193.0-986.0 [facility] Comment on above: Performed By: #### B 12FOL, VITAD, IRON #### [facility] [address] [place] [address] Dr. Alicja Shannon FOLATE 3.80 ng/mL Critically low 8.60-58.90 [facility] Comment on above: Performed By: #### B 12FOL, VITAD, IRON #### [facility] [address] [address] [address] Alicja Shannon VITAMIN D 25 OHon 03-27-2022 VIT D 25-OH 6.9 ng/mL Normal [facility] Comment on above: Performed By: #### B 12FOL, VITAD, IRON #### [facility] [address] [address] [address] Alicja Shannon VIT D RANGES SEE BELOW Normal [facility] Comment on above: Result Comment: <20 ng/mL Vit D deficient 20 - <30 ng/mL Vit D insufficient 30 - 100 ng/mL Vit D sufficient >100 ng/mL Potential Toxicity Performed By: #### B 12FOL, VITAD, IRON #### [facility] [address] [address] [address] Alicja Shannon Formson 09-16-2020 Forms [id number] 6#1.00CD:127 Normal [facility] Physician Referralon 021 Physician Referral [id number] #1.00CD:127 Normal [facility] Ambulatory Clinical Summaryo n 04-04-2020 Ambulatory Clinical Summary {[id number]}CD:[id number] Normal [facility] Gastroenterology Office/Clin ic Noteon 04-04-2020 Gastroenterology Office/Clinic [...] water, # 160 cap(s), Refills(s) 1, Pharmacy: [id number], 182, cm, 04/04/20 13:43:00 EST, Height/Length Dosing, 174.1, kg, 04/04... 2. Anal pain (K62.89: Other specified diseases of anus and rectum) Hemorrhoids VS anal fissure Partially improved with Anusol/MiraLAX/fiber colonoscopy 10/04/19 which showed some prominent rectal veins, some perianal irritation, no ulcerations or bleeding. Follow-up With When Contact Information vYon Tolliver MD In 2 weeks [address], [place] [address]- Additional Instructions: Problem List/Past Medical History Ongoing [...] type 2: Mother. Heart disease: Mother. Normal [facility] Comment on above: Result Comment: Elec tronically Signed By: Yvon Tolliver MD\.br\Date and Time Signed: 04/04/20 14:18 EST Ambulatory Clinical Summaryo n 03-21-2020 Ambulatory Clinical Summary {[id number] Normal [facility] Gastroenterology Office/Clin ic Noteon 03-21-2020 Gastroenterology Office/Clinic Note Chief Complaint 4 week f/u History of Present Illness This is a 19 year old male with PHX of bladder CA, Bipolar disorder and Asperger?s disorder who presents today for follow-up Rectal bleeding, started 09/2019, I put him on fiber but this did not help. He saw Dr Diaz at [facility] 09/25/19, had a colonoscopy 10/04/19 which showed [...] Daily, # 255 gram, Refills(s) 3, Pharmacy: [facility] #[id number], 182, cm, 03/21/20 13:54:00 EST, Height/Length Dosing, 175, kg, 03/21/20 13:54:00 EST, Weight Dosing 2. Anal pain (K62.89: Other specified diseases of anus and rectum) ? hemorrhoids vs anal fissure Ordered: hydrocortisone topical, 25 mg = 1 supp, Rectal, BID, X 7 day(s), # 14 supp, Refills(s) 0, Pharmacy: [facility] #[id number], 182, cm, 03/21/20 13:54:00 EST, Height/Length Dosing, 175, kg, 03/21/20 13:54:00 EST, Weight Dosing 3. Constipation (K59.00: Constipation, unspecified) Uncontrolled MiraLAX Metamucil Follow-up With When Contact Information Yvon Tolliver MD In [address] [place], [place] [address], [place] [address]- Additional Instructions: Problem List/Past Medical [...] type 2: Mother. Heart disease: Mother. Normal [facility] Comment on above: Result Comment: Elec tronically Signed By: Sahil Velasco MD, Yvon\.br\Date and Time Signed: 03/21/20 19:32 EST Ambulatory Clinical Summaryo n 02-19-2020 Ambulatory Clinical Summary {[id number]}CD:[id number] Normal [facility] Gastroenterology Office/Clin ic Noteon 02-19-2020 Gastroenterology Office/Clinic [...] a BM He saw Dr Diaz at [facility] 09/25/19, had a colonoscopy 10/04/19 which showed [...] Probably hemorrhoids vs anal fissure colonoscopy at [facility] by Dr. Diaz 09/2019: prominent rectal veins and perianal irritation Average risk Metamucil H&H If no improvement repeat colonoscopy Ordered: psyllium, 1,050 mg = 2 cap(s), Oral, Daily, Take 2 hour apart from the other medications with at least 8 ounces of water, # 160 cap(s), Refills(s) 1, Pharmacy: [facility] #[id number], 182.9, cm, 02/19/20 8:51:00 EST, Height/Length Dosing, 172, kg, 02/18/... Hemoglobin and Hematocrit Follow-up With When Contact Information Abdal Rod MD, Sulieman In 4 weeks [address] [place] [address]- Additional Instructions: Problem List/Past Medical History Ongoing [...] type 2: Mother. Heart disease: Mother. Normal [facility] Comment on above: Result Comment: Elec tronically Signed By: Yvon Tolliver MD\.br\Date and Time Signed: 02/19/20 09:15 EST Outside Colonoscopyon 2019 Outside Colonoscopy [id number] #1.00CD:127 Normal [facility] Consenton 09-28-2019 Consent [id number] #1.00CD:127 Normal [facility] Consultation Noteon 09-28-19 Consultation Note [id number] #1.00CD:127 Normal [facility] SURGICAL PATHOLOGYon 019 SURGICAL PATHOLOGY Specimen #: [id number] Submitting Physician: ALICJA SHANNON M.D. FINAL DIAGNOSIS Outside slide consultation, [facility], [place], [place] Urinary bladder, biopsy ([id number], A1-A4; 01/18/2019) - Non-invasive papillary urothelial carcinoma, [...] (Electronic Signature) SPECIMEN SUBMITTED A: 4 SLIDES ([id number]) CLINICAL DATA None provided. Patient ID #: Date of Report: 01/27/2019 Date of Procedure: 01/26/2019 Date of Receipt: 01/26/2019 Submitted by: ALICJA SHANNON M.D. Location: Diagnostic interpretation performed at [facility], [address] [place], [place] [address]. CLIA Number: [id number] Normal [facility] Comment on above: Performed By: #### S #### See report for performing lab information. Encounters Encounter Date Encounter Type Care Provider Facility Start: 08-15-2023 End: 08-16-2023 Emergency department patient visit [facility] Start: 02-05-2023 ambulatory Matt Deluna acility:[facility] Start: 05-20-[address] JESUS ALBERTO MILAN . Facili ty:[facility] Start: 03-30-2022 Encounter for genera l adult medical examination without abnormal findings DR JESUS ALBERTO MILAN . [facility] Start: 03-27-2022 End: 03-28-[address] DOCTOR SPANN Facility:[facility] Start: 03-27-2022 End: 03-28-2022 Encounter for general adult medical examination without abnormal findings DR JESUS ALBERTO MILAN . Facility:[facility] Start: 01-29-[address] JESUS ALBERTO MILAN . Facili ty:[facility] Payers Date Payer Category Payer Medicaid [id number] 1999 Unknown [id number] 2.16.84 [id number] 1999 Unknown [id number] 2.16.84 [id number] 1999 Unknown [id number] 2.16.84 [id number] 1999 Unknown [id number] 2.16.84 [id number] 1999 Unknown [id number] 2.16.8 [id number] 1999 Unknown [id number] 2.16.8 [id number] 1959 Self-pay 1959 Unknown [id number] Unknown [id number] 2.16.8 [id number] Summary Purpose Family History No Family History [...] section and content) DATE CREATED AUTHOR 01/27/2019 [facility] DATE CREATED AUTHOR AUTHOR'S ORGANIZ ATION 09/16/2020 [facility] DATE CREATED AUTHOR AUTHOR'S ORGANIZ ATION 07/07/[address] [facility] DATE CREATED AUTHOR AUTHOR'S ORGANIZ ATION 04/19/2023 [facility] DATE CREATED AUTHOR AUTHOR'S ORGANIZ ATION 08/16/2023 [facility] FOR RECORDS PERTAINING TO PATIENTS WHO ARE [...] BE BASED ON THE PRIMARY CLINICAL RECORDS. [facility] [email or web address] [facility]. provides no warranty or guarantee of the accuracy or completeness of information in this document.
== END 2023-12-15 20:35 | disposition home or self-care (01) ==
LOC: SLEEP 20:34
PROVIDERS: PCP Family Medicine; Visit Provider Family Medicine
DX: G47.33 Obstructive sleep apnea (adult) (pediatric) (principal)
CPT/HCPCS: 95811

== ENCOUNTER 2024-02-10 09:05 | Outpatient (OUT) | payer MEDICAID, SELFPAY ==
--- OUTSIDE RECORDS SUMMARY | 2024-02-10 09:25 | XMS_ITS | CCD ---
Author Organization [facility] Care Team Providers Care Webmaster Name Role Phone KAYLI ., DR GRANDA [...] te Episodic/Chronic Other aftercare (5 sources) Other fci (current) drug therapy; Translations: [OTH CAR RESTORER CURRENT DRUG THERAPY] Onset: 03-27-2022 Episodic Results [...] Sullivan MD on 08/15/2023 8:32 PM Normal [facility] OXCARBAZEPINE / TRILEPTALon 03-31-2022 Oxcarbazepine 6 ug/mL Critically low 10-35 [facility] Comment on above: Result Comment: This test was developed and its performance characteristics determined by [employer]. It has not been cleared or approved by the Food and Drug Administration. Detection Limit = 1 Performed By: #### O XCARB #### [facility] [address] [place] [address] Dr. Gwen Shannon INSULINon 03-28-2022 Insulin 25.2 uIU/mL Critically high 2.6-24.9 [facility] Comment on above: Performed By: #### I NSULIN #### [facility] [address] [place] [address] Dr. Gwen Shannon CBC AUTO DIFFon 03-27-2022 BASO # 0.0 103/ul Normal 0.0-0.1 [facility] Comment on above: Performed By: #### C BC #### [facility] [address] [place] [address] Dr. Gewn Shannon Basophils/100 WBC (Bld) 0.4 % Normal 0.2-2.0 [facility] Comment on above: Performed By: #### C BC #### [facility] [address] [place] [address] Dr. Gwen Shannon EO # 0.1 103/ul Normal 0.0-0.7 [facility] Comment on above: Performed By: #### C BC #### [facility] [address] [place] [address] Dr. Gwen Shannon Eosinophils/100 WBC (Bld) 0.6 % Critically low 0.9-7.0 [facility] Comment on above: Performed By: #### C BC #### [facility] [address] [place] [address] Dr. Gwen Shannon Erythrocyte distribution width (RBC) [Ratio] 13.3 % Normal 11.0-15.0 [facility] Comment on above: Performed By: #### C BC #### [facility] [address] [place] [address] Dr. Gwen Shannon Hematocrit (Bld) [Volume fraction] 42.6 % Normal 42.0-54.0 [facility] Comment on above: Performed By: #### C BC #### [facility] [address] [place] [address] Dr. Gwen Shannon Hemoglobin (Bld) [Mass/Vol] 14.2 g/dL Normal 14.0-18.0 [facility] Comment on above: Performed By: #### C BC #### [facility] [address] [place] [address] Dr. Gwen Shannon IG # 0.04 10e3/ul Critically high 0.00-0.03 [facility] Comment on above: Performed By: #### C BC #### [facility] [address] [place] [address] Dr. Gwen Shannon IG % 0.4 % Normal 0.0-0.5 [facility] Comment on above: Performed By: #### C BC #### [facility] [address] [place] [address] Dr. Gwen Shannon LYMPH # 2.6 103/ul Normal 1.2-3.8 [facility] Comment on above: Performed By: #### C BC #### [facility] [address] [place] [address] Dr. Gwen Shannon Lymphocytes/100 WBC (Bld) 29.4 % Normal 20.5-60.0 [facility] Comment on above: Performed By: #### C BC #### [facility] [address] [place] [address] Dr. Gwen Shannon MANUAL DIFF REQ NO Normal [facility] Comment on above: Performed By: #### C BC #### [facility] [address] [address] [address] Gwen Shannon MCH (RBC) [Entitic mass] 27.5 pg Normal 25.9-34.0 [facility] Comment on above: Performed By: #### C BC #### [facility] [address] [address] [address] Gwen Shannon MCHC (RBC) [Mass/Vol] 33.3 g/dL Normal 29.9-35.2 [facility] Comment on above: Performed By: #### C BC #### [facility] [address] [place] [address] Dr. Gwen Shannon MCV (RBC) [Entitic vol] 82.6 fL Normal 80.0-94.0 [facility] Comment on above: Performed By: #### C BC #### [facility] [address] [place] [address] Dr. Gwen Shannon MONO # 0.5 103/ul Normal 0.3-0.8 [facility] Comment on above: Performed By: #### C BC #### [facility] [address] [place] [address] Dr. Gwen Shannon Monocytes/100 WBC (Bld) 5.2 % Normal 1.7-12.0 [facility] Comment on above: Performed By: #### C BC #### [facility] [address] [place] [address] Dr. Gwen Shannon NEUT # 5.7 103/ul Normal 1.4-6.5 [facility] Comment on above: Performed By: #### C BC #### [facility] [address] [place] [address] Dr. Gwen Shannon Neutrophils/100 WBC (Bld) 64.0 % Normal 43.0-75.0 [facility] Comment on above: Performed By: #### C BC #### [facility] [address] [place] [address] Dr. Gwen Shannon Platelet mean volume (Bld) [Entitic vol] 9.7 fL Normal 9.5-13.5 [facility] Comment on above: Performed By: #### C BC #### [facility] [address] [address] [address] Gwen Shannon PLT 322 103/ul Normal 150-450 [facility] Comment on above: Performed By: #### C BC #### [facility] [address] [address] [address] Gwen Shannon RBC 5.16 106/ul Normal 4.70-6.10 [facility] Comment on above: Performed By: #### C BC #### [facility] [address] [address] [address] Gwen Shannon WBC 9.0 103/ul Normal 4.0-11.0 [facility] Comment on above: Performed By: #### C BC #### [facility] [address] [place] [address] Dr. Gwen Shannon FREE THYROXINE INDEX T7on FTI 2.21 Normal 1.30-4.50 [facility] Comment on above: Performed By: #### B 12FOL, VITAD, IRON #### [facility] [address] [address] [address] Gwen Shannon T3U 32.0 % Critically low 33.0-40.0 [facility] Comment on above: Performed By: #### B 12FOL, VITAD, IRON #### [facility] [address] [place] [address] Dr. Gwen Shannon T4 [Mass/Vol] 6.90 ug/dL Normal 4.50-12.10 [facility] Comment on above: Performed By: #### B 12FOL, VITAD, IRON #### [facility] [address] [address] [address] Gwen Shannon GLYCOHEMOGLOBIN A1Con 2022 ADA RECOMMENDATION SEE BELOW Normal [facility] Comment on above: Result Comment: ADA RECOMMENDED LIMIT 4.0 - 6.0 ADA THERAPEUTIC TARGET < 7.0 ACTION SUGGESTED > 7.0 Performed By: #### A 1C #### [facility] [address] [place], [place] [id number] Dr. Gwen Shannon Glucose [Mass/Vol] 105 mg/dL Normal [facility] Comment on above: Performed By: #### A 1C #### [facility] [address] [address] [address] Gwen Shannon HbA1c (Bld) [Mass fraction] 5.3 % Normal 4.5-6.2 [facility] Comment on above: Performed By: #### A 1C #### [facility] [address] [address] [address] Gwen Shannon IRONon 03-27-2022 Iron [Mass/Vol] 52.0 ug/dL Critically low 65.0-175.0 [facility] Comment on above: Performed By: #### B 12FOL, VITAD, IRON #### [facility] [address] [place] [address] Dr. Gwen Shannon LIPID PROFILEon 03-27-2022 CHOL-HDL RATIO NORM SEE BELOW Normal [facility] Comment on above: Result Comment: 3.3 - 4.4 LOW RISK 4.4 - 7.1 AVERAGE RISK 7.1 - 11.0 MODERATE RISK >11.0 HIGH RISK Performed By: #### B 12FOL, VITAD, IRON #### [facility] [address] [place] [address] Dr. Gwen Shannon Cholesterol [Mass/Vol] 181 mg/dL Normal <=200 [facility] Comment on above: Performed By: #### B 12FOL, VITAD, IRON #### [facility] [address] [address] [address] Gwen Shannon Cholesterol in HDL [Mass/Vol] 29 mg/dL Critically low 40-60 [facility] Comment on above: Performed By: #### B 12FOL, VITAD, IRON #### [facility] [address] [place] [address] Dr. Gwen Shannon Cholesterol in LDL [Mass/Vol] 136.8 mg/dL Normal [facility] Comment on above: Performed By: #### B 12FOL, VITAD, IRON #### [facility] [address] [place] [address] Dr. Gwen Shannon Cholesterol.total/Cho lesterol in HDL [Mass ratio] 6.2 {ratio} Normal [facility] Comment on above: Performed By: #### B 12FOL, VITAD, IRON #### [facility] [address] [address] [address] Gwen Shannon HDL NORMAL > or = 60 mg/dl - LOW CARDIOVASCULAR RISK <40 mg/dl - HIGH CARDIOVASCULAR RISK Normal [facility] Comment on above: Performed By: #### B 12FOL, VITAD, IRON #### [facility] [address] [address] [address] Gwen Shannon LDL CALC NORMAL SEE BELOW Normal [facility] Comment on above: Result Comment: <100 mg/dl OPTIMAL 100 - 129 mg/dl NEAR OR ABOVE OPTIMAL 130 - 159 mg/dl BORDERLINE HIGH 160 - 189 mg/dl HIGH >190 mg/dl VERY HIGH Performed By: #### B 12FOL, VITAD, IRON #### [facility] [address] [address] [address] Gwen Shannon Triglyceride [Mass/Vol] 76 mg/dL Normal <=150 [facility] Comment on above: Performed By: #### B 12FOL, VITAD, IRON #### [facility] [address] [address] [address] Gwen Shannon VLDL CALC 15.2 mg/dL Normal [facility] Comment on above: Performed By: #### B 12FOL, VITAD, IRON #### [facility] [address] [address] [address] Gwen Shannon PROF 14(COMP METB)on 023 Albumin [Mass/Vol] 3.5 g/dL Normal 3.4-5.0 [facility] Comment on above: Performed By: #### T SH, CMP, T7, LIPID, URIC #### [facility] [address] [address] [address] Gwen Shannon Albumin/Globulin [Mass ratio] 0.8 {ratio} Normal [facility] Comment on above: Performed By: #### T SH, CMP, T7, LIPID, URIC #### [facility] [address] [address] [address] Gwen Shannon ALP [Catalytic activity/Vol] 139 U/L Critically high 46-116 [facility] Comment on above: Performed By: #### T SH, CMP, T7, LIPID, URIC #### [facility] [address] [address] [address] Gwen Shannon ALT [Catalytic activity/Vol] 24 U/L Normal 16-63 [facility] Comment on above: Performed By: #### T SH, CMP, T7, LIPID, URIC #### [facility] [address] [place] [address] Dr. Gwen Shannon Anion gap [Moles/Vol] 13.9 mmol/L Normal [facility] Comment on above: Performed By: #### T SH, CMP, T7, LIPID, URIC #### [facility] [address] [place] [address] Dr. Gwen Shannon AST [Catalytic activity/Vol] 18 U/L Normal 15-37 [facility] Comment on above: Performed By: #### T SH, CMP, T7, LIPID, URIC #### [facility] [address] [place] [address] Dr. Gwen Shannon Bilirubin [Mass/Vol] 0.2 mg/dL Normal 0.2-1.0 [facility] Comment on above: Performed By: #### T SH, CMP, T7, LIPID, URIC #### [facility] [address] [place] [address] Dr. Gwen Shannon Calcium [Mass/Vol] 8.7 mg/dL Normal 8.5-10.1 [facility] Comment on above: Performed By: #### T SH, CMP, T7, LIPID, URIC #### [facility] [address] [place] [address] Dr. Gwen Shannon Chloride [Moles/Vol] 104 mmol/L Normal 98-107 [facility] Comment on above: Performed By: #### T SH, CMP, T7, LIPID, URIC #### [facility] [address] [place] [address] Dr. Gwen Shannon CO2 [Moles/Vol] 24.9 mmol/L Normal 21.0-32.0 [facility] Comment on above: Performed By: #### T SH, CMP, T7, LIPID, URIC #### [facility] [address] [address] [address] Gwen Shannon Creatinine [Mass/Vol] 1.00 mg/dL Normal 0.70-1.30 [facility] Comment on above: Performed By: #### T SH, CMP, T7, LIPID, URIC #### [facility] [address] [address] [address] Gwen Shannon EGFR-AF SUDANESE >60 Normal >=60 [facility] Comment on above: Performed By: #### T SH, CMP, T7, LIPID, URIC #### [facility] [address] [place] [address] Dr. Gwen Shannon EGFR-NON AF SUDANESE >60 Normal >=60 [facility] Comment on above: Performed By: #### T SH, CMP, T7, LIPID, URIC #### [facility] [address] [address] [address] Gwen Shannon Globulin (S) [Mass/Vol] 4.2 g/dL Normal [facility] Comment on above: Performed By: #### T SH, CMP, T7, LIPID, URIC #### [facility] [address] [address] [address] Gwen Shannon Glucose [Mass/Vol] 89 mg/dL Normal 74-[address] [facility] Comment on above: Performed By: #### T SH, CMP, T7, LIPID, URIC #### [facility] [address] [address] [address] Gwen Shannon Potassium [Moles/Vol] 3.8 mmol/L Normal 3.5-5.1 [facility] Comment on above: Performed By: #### T SH, CMP, T7, LIPID, URIC #### [facility] [address] [address] [address] Gwen Shannon Protein [Mass/Vol] 7.7 g/dL Normal 6.4-8.[address] [facility] Comment on above: Performed By: #### T SH, CMP, T7, LIPID, URIC #### [facility] [address] [address] [address] Gwen Shannon Sodium [Moles/Vol] 139 mmol/L Normal 136-145 [facility] Comment on above: Performed By: #### T SH, CMP, T7, LIPID, URIC #### [facility] [address] [place] [address] Dr. Gwen Shannon Urea nitrogen [Mass/Vol] 17.0 mg/dL Normal 7.0-18.0 [facility] Comment on above: Performed By: #### T SH, CMP, T7, LIPID, URIC #### [facility] [address] [place] [address] Dr. Gwen Shannon Urea nitrogen/Creatinine [Mass ratio] 17.0 mg/mg Normal [facility] Comment on above: Performed By: #### T SH, CMP, T7, LIPID, URIC #### [facility] [address] [place] [address] Dr. Gwen Shannon TSHon 03-27-2022 TSH 2.036 uIU/mL Normal 0.358-3.740 [facility] Comment on above: Performed By: #### T SH, CMP, T7, LIPID, URIC #### [facility] [address] [place] [address] Dr. Gwen Shannon URIC ACID SERUMon 03-27-2022 Urate [Mass/Vol] 7.4 mg/dL Critically high 3.5-7.2 [facility] Comment on above: Performed By: #### T SH, CMP, T7, LIPID, URIC #### [facility] [address] [place] [address] Dr. Gwen Shannon VIT B12 AND FOLATEon 023 Cobalamin (Vitamin B12) [Mass/Vol] 519.0 pg/mL Normal 193.0-986.0 [facility] Comment on above: Performed By: #### B 12FOL, VITAD, IRON #### [facility] [address] [place] [address] Dr. Gwen Shannon FOLATE 3.80 ng/mL Critically low 8.60-58.90 [facility] Comment on above: Performed By: #### B 12FOL, VITAD, IRON #### [facility] [address] [address] [address] Gwen Shannon VITAMIN D 25 OHon 03-27-2022 VIT D 25-OH 6.9 ng/mL Normal [facility] Comment on above: Performed By: #### B 12FOL, VITAD, IRON #### [facility] [address] [address] [address] Gwen Shannon VIT D RANGES SEE BELOW Normal [facility] Comment on above: Result Comment: <20 ng/mL Vit D deficient 20 - <30 ng/mL Vit D insufficient 30 - 100 ng/mL Vit D sufficient >100 ng/mL Potential Toxicity Performed By: #### B 12FOL, VITAD, IRON #### [facility] [address] [address] [address] Gwen Shannon Formson 09-16-2020 Forms [id number]#1.00CD:127 Normal [facility] Physician Referralon 021 Physician Referral [id number] #1.00CD:127 Normal [facility] Ambulatory Clinical Summaryo n 04-04-2020 Ambulatory Clinical Summary {[id number]}CD:[id number] Normal [facility] Gastroenterology Office/Clin ic Noteon 04-04-2020 [...] water, # 160 cap(s), Refills(s) 1, Pharmacy: [facility] #[id number], 182, cm, 04/04/20 13:43:00 EST, Height/Length Dosing, 174.1, kg, 04/04... 2. Anal pain (K62.89: Other specified diseases of anus and rectum) Hemorrhoids VS anal fissure Partially improved with Anusol/MiraLAX/fiber colonoscopy 10/04/19 which showed some prominent rectal veins, some perianal irritation, no ulcerations or bleeding. Follow-up With When Contact Information Yvon Tolliver MD In 2 weeks [address], [place] [address]- Additional Instructions: Problem List/Past Medical History Ongoing [...] type 2: Mother. Heart disease: Mother. Normal [facility] Comment on above: Result Comment: Elec tronically Signed By: Yvon Tolliver MD\.br\Date and Time Signed: 04/04/20 14:18 EST Ambulatory Clinical Summaryo n 03-21-2020 Ambulatory Clinical Summary {[id number]}CD:[id number] Normal [facility] Gastroenterology Office/Clin ic Noteon 03-21-2020 Gastroenterology Office/Clinic Note Chief Complaint 4 week f/u History of Present Illness This is a 19 year old male with PHX of bladder CA, Bipolar disorder and Asperger?s disorder who presents today for follow-up Rectal bleeding, started 09/2019, I put him on fiber but this did not help. He saw Dr Diaz at [facility] 09/25/19, had a colonoscopy 10/04/19 which showed [...] Daily, # 255 gram, Refills(s) 3, Pharmacy: [facility] #[id number], 182, cm, 03/21/20 13:54:00 EST, Height/Length Dosing, 175, kg, 03/21/20 13:54:00 EST, Weight Dosing 2. Anal pain (K62.89: Other specified diseases of anus and rectum) ? hemorrhoids vs anal fissure Ordered: hydrocortisone topical, 25 mg = 1 supp, Rectal, BID, X 7 day(s), # 14 supp, Refills(s) 0, Pharmacy: [facility] #[id number], 182, cm, 03/21/20 13:54:00 EST, Height/Length Dosing, 175, kg, 03/21/20 13:54:00 EST, Weight Dosing 3. Constipation (K59.00: Constipation, unspecified) Uncontrolled MiraLAX Metamucil Follow-up With When Contact Information Yvon Tolliver MD In [address] [place], [place] [address], [place] [address]- Additional Instructions: Problem List/Past Medical [...] type 2: Mother. Heart disease: Mother. Normal [facility] Comment on above: Result Comment: Elec tronically Signed By: Sahil Velasco MD, Yvon\.br\Date and Time Signed: 03/21/20 19:32 EST Ambulatory Clinical Summaryo n 02-19-2020 Ambulatory Clinical Summary {[id number]}CD:[id number] Normal [facility] Gastroenterology Office/Clin ic Noteon 02-19-2020 [...] a BM He saw Dr Diaz at [facility] 09/25/19, had a colonoscopy 10/04/19 which showed [...] Probably hemorrhoids vs anal fissure colonoscopy at [facility] by Dr. Diaz 09/2019: prominent rectal veins and perianal irritation Average risk Metamucil H&H If no improvement repeat colonoscopy Ordered: psyllium, 1,050 mg = 2 cap(s), Oral, Daily, Take 2 hour apart from the other medications with at least 8 ounces of water, # 160 cap(s), Refills(s) 1, Pharmacy: [facility] #[id number], 182.9, cm, 02/19/20 8:51:00 EST, Height/Length Dosing, 172, kg, 02/18/... Hemoglobin and Hematocrit Follow-up With When Contact Information Abdal Rod MD, Sulieman In 4 weeks [address] [place] [address]- Additional Instructions: Problem List/Past Medical History Ongoing [...] type 2: Mother. Heart disease: Mother. Normal [facility] Comment on above: Result Comment: Elec tronically Signed By: Yvon Tolliver MD\.br\Date and Time Signed: 02/19/20 09:15 EST Outside Colonoscopyon 2019 Outside Colonoscopy [id number] #1.00CD:127 Normal [facility] Consenton 09-28-2019 Consent [id number] #1.00CD:127 Normal [facility] Consultation Noteon 09-28-19 Consultation Note [id number] #1.00CD:127 Normal [facility] SURGICAL PATHOLOGYon 019 SURGICAL PATHOLOGY Specimen #: [id number] Submitting Physician: GWEN SHANNON M.D. FINAL DIAGNOSIS Outside slide consultation, [facility], [place], [place] Urinary bladder, biopsy ([id number], A1-A4; 01/18/2019) - Non-invasive papillary urothelial carcinoma, [...] (Electronic Signature) SPECIMEN SUBMITTED A: 4 SLIDES ([id number]) CLINICAL DATA None provided. Patient ID #: Date of Report: 01/27/2019 Date of Procedure: 01/26/2019 Date of Receipt: 01/26/2019 Submitted by: GWEN SHANNON M.D. Location: Diagnostic interpretation performed at [facility], [address] [place], [place] [address]. CLIA Number: [id number] Normal [facility] Comment on above: Performed By: #### S #### See report for performing lab information. Encounters Encounter Date Encounter Type Care Provider Facility Start: 08-15-2023 End: 08-16-2023 Emergency department patient visit [facility] Start: 02-05-2023 ambulatory Matt Deluna acility:[facility] Start: 05-20-[address] JESUS ALBERTO MILAN . Facili ty:[facility] Start: 03-30-2022 Encounter for genera l adult medical examination without abnormal findings DR JESUS ALBERTO MILAN . [facility] Start: 03-27-2022 End: 03-28-[address] DOCTOR SPANN Facility:[facility] Start: 03-27-2022 End: 03-28-2022 Encounter for general adult medical examination without abnormal findings DR JESUS ALBERTO MILAN . Facility:[facility] Start: 01-29-[address] JESUS ALBERTO MILAN . Facili ty:[facility] Payers Date Payer Category Payer Medicaid [id number] 1999 Unknown [id number] 2.16.84 [id number] 1999 Unknown [id number] 2.16.84 [id number] 1999 Unknown [id number] 2.16.84 [id number] 1999 Unknown [id number] 2.16.84 [id number] 1999 Unknown [id number] 2.16.8 [id number] 1999 Unknown [id number] 2.16.8 [id number] 1959 Self-pay 1959 Unknown [id number] Unknown [id number] 2.16.8 [id number] Summary Purpose Family History No Family History [...] section and content) DATE CREATED AUTHOR 01/27/2019 [facility] DATE CREATED AUTHOR AUTHOR'S ORGANIZ ATION 09/16/2020 [facility] DATE CREATED AUTHOR AUTHOR'S ORGANIZ ATION 07/07/2022 [facility] DATE CREATED AUTHOR AUTHOR'S ORGANIZ ATION 04/19/2023 [facility] DATE CREATED AUTHOR AUTHOR'S ORGANIZ ATION 08/16/2023 [facility] [facility] FOR RECORDS PERTAINING TO PATIENTS WHO ARE [...] BE BASED ON THE PRIMARY CLINICAL RECORDS. [facility] [email or web address] [facility]. provides no warranty or guarantee of the accuracy or completeness of information in this document.
[2024-02-10 09:30] LABS: Bilirubin Urine NEGATIVE (NEGATIVE); Blood Urine NEGATIVE (NEGATIVE); Clarity Urine CLEAR (CLEAR); Glucose Urine UA NEGATIVE (NEGATIVE); Ketones Urine NEGATIVE (NEGATIVE); Leukocyte Esterase Urine NEGATIVE (NEGATIVE); Nitrite Urine NEGATIVE (NEGATIVE); Protein Urine NEGATIVE (NEG/TRACE); Specific Gravity Urine >=1.030 (1.005-1.025); Urobilinogen Urine 0.2 EU/dL (0.2-1.0)
[2024-02-10 09:31] LABS: Color Urine DK YELLOW (YELLOW)
[2024-02-10 10:15] LABS: WBC Urine 0-2 #/HPF (NONE SEEN)
[2024-02-10 10:16] LABS: Bacteria Urine TRACE #/HPF (NONE SEEN); Cast Seen? SEEN #/LPF (NONE SEEN); Crystals Seen? None Seen #/HPF (None Seen); Hyaline Casts Urine FEW; Mucus Urine TRACE (NONE SEEN); RBC Urine 0-2 #/HPF (0-2); Squamous Epithelial Cell Urine RARE #/LPF (NONE/RARE); Urine Culture Indicated ALREADY ORDERED
== END 2024-02-10 09:06 | disposition home or self-care (01) ==
LOC: LAB 09:07
PROVIDERS: PCP Family Medicine; Visit Provider Family Medicine
DX: R31.9 Hematuria, unspecified (principal)
CPT/HCPCS: 81001; 87086

== ENCOUNTER 2024-06-19 08:31 | Outpatient (OUT) | payer MEDICAID, SELFPAY ==
--- OUTSIDE RECORDS SUMMARY | 2024-06-19 08:52 | XMS_ITS | CCD ---
Author Organization [facility] Care Team Providers Care Telescope Repairer Name Role Phone KAYLI ., DR GRANDA [...] te Episodic/Chronic Other aftercare (5 sources) Other chcf (current) drug therapy; Translations: [OTH ASSISTED CURRENT DRUG THERAPY] Onset: 03-27-2022 Episodic Results [...] Sullivan MD on 08/15/2023 8:32 PM Normal [facility] OXCARBAZEPINE / TRILEPTALon 03-31-2022 Oxcarbazepine 6 ug/mL Critically low 10-35 [facility] Comment on above: Result Comment: This test was developed and its performance characteristics determined by [employer]. It has not been cleared or approved by the Food and Drug Administration. Detection Limit = 1 Performed By: #### O XCARB #### [facility] [address] [place] [address] Dr. Gwen Shannon INSULINon 03-28-2022 Insulin 25.2 uIU/mL Critically high 2.6-24.9 [facility] Comment on above: Performed By: #### I NSULIN #### [facility] [address] [place] [address] Dr. Gwen Shannon CBC AUTO DIFFon 03-27-2022 BASO # 0.0 103/ul Normal 0.0-0.1 [facility] Comment on above: Performed By: #### C BC #### [facility] [address] [place] [address] Dr. Gwen Shannon Basophils/100 WBC (Bld) 0.4 % Normal 0.2-2.0 [facility] Comment on above: Performed By: #### C BC #### [facility] [address] [place] [address] Dr. Gwen Shannon EO # 0.1 103/ul Normal 0.0-0.7 [facility] Comment on above: Performed By: #### C BC #### [facility] [address] [place] [address] Dr. Gwen Shannon Eosinophils/100 WBC (Bld) 0.6 % Critically low 0.9-7.0 [facility] Comment on above: Performed By: #### C BC #### [facility] [address] [place] [address] Dr. Gwen Shannon Erythrocyte distribution width (RBC) [Ratio] 13.3 % Normal 11.0-15.0 [facility] Comment on above: Performed By: #### C BC #### [facility] [address] [place] [address] Dr. Gwen Shannon Hematocrit (Bld) [Volume fraction] 42.6 % Normal 42.0-54.0 [facility] Comment on above: Performed By: #### C BC #### [facility] [address] [place] [address] Dr. Gwen Shannon Hemoglobin (Bld) [Mass/Vol] 14.2 g/dL Normal 14.0-18.0 [facility] Comment on above: Performed By: #### C BC #### [facility] [address] [place] [address] Dr. Gwen Shannon IG # 0.04 10e3/ul Critically high 0.00-0.03 [facility] Comment on above: Performed By: #### C BC #### [facility] [address] [place] [address] Dr. Gwen Shannon IG % 0.4 % Normal 0.0-0.5 [facility] Comment on above: Performed By: #### C BC #### [facility] [address] [place] [address] Dr. Gwen Shannon LYMPH # 2.6 103/ul Normal 1.2-3.8 [facility] Comment on above: Performed By: #### C BC #### [facility] [address] [place] [address] Dr. Gwen Shannon Lymphocytes/100 WBC (Bld) 29.4 % Normal 20.5-60.0 [facility] Comment on above: Performed By: #### C BC #### [facility] [address] [place] [address] Dr. Gwen Shannon MANUAL DIFF REQ NO Normal [facility] Comment on above: Performed By: #### C BC #### [facility] [address] [address] [address] Gwen Shannon MCH (RBC) [Entitic mass] 27.5 pg Normal 25.9-34.0 [facility] Comment on above: Performed By: #### C BC #### [facility] [address] [address] [address] Gwen Shannon MCHC (RBC) [Mass/Vol] 33.3 g/dL Normal 29.9-35.2 [facility] Comment on above: Performed By: #### C BC #### [facility] [address] [place] [address] Dr. Gwen Shannon MCV (RBC) [Entitic vol] 82.6 fL Normal 80.0-94.0 [facility] Comment on above: Performed By: #### C BC #### [facility] [address] [place] [address] Dr. Gwen Shannon MONO # 0.5 103/ul Normal 0.3-0.8 [facility] Comment on above: Performed By: #### C BC #### [facility] [address] [place] [address] Dr. Gwen Shannon Monocytes/100 WBC (Bld) 5.2 % Normal 1.7-12.0 [facility] Comment on above: Performed By: #### C BC #### [facility] [address] [place] [address] Dr. Gwen Shannon NEUT # 5.7 103/ul Normal 1.4-6.5 [facility] Comment on above: Performed By: #### C BC #### [facility] [address] [place] [address] Dr. Gwen Shannon Neutrophils/100 WBC (Bld) 64.0 % Normal 43.0-75.0 [facility] Comment on above: Performed By: #### C BC #### [facility] [address] [place] [address] Dr. Gwen Shannon Platelet mean volume (Bld) [Entitic vol] 9.7 fL Normal 9.5-13.5 [facility] Comment on above: Performed By: #### C BC #### [facility] [address] [address] [address] Gwen Shannon PLT 322 103/ul Normal 150-450 [facility] Comment on above: Performed By: #### C BC #### [facility] [address] [address] [address] Gwen Sahnnon RBC 5.16 106/ul Normal 4.70-6.10 [facility] Comment on above: Performed By: #### C BC #### [facility] [address] [address] [address] Gwen Shannon WBC 9.0 103/ul Normal 4.0-11.0 [facility] Comment on above: Performed By: #### C BC #### [facility] [address] [place] [address] Dr. Gwen Shannon FREE THYROXINE INDEX T7on FTI 2.21 Normal 1.30-4.50 [facility] Comment on above: Performed By: #### B 12FOL, VITAD, IRON #### [facility] [address] [address] [address] Gwen Shannon T3U 32.0 % Critically low 33.0-40.0 [facility] Comment on above: Performed By: #### B 12FOL, VITAD, IRON #### [facility] [address] [place] [address] Dr. Gwen Shannon T4 [Mass/Vol] 6.90 ug/dL Normal 4.50-12.10 [facility] Comment on above: Performed By: #### B 12FOL, VITAD, IRON #### [facility] [address] [address] [address] Gwen Shannon GLYCOHEMOGLOBIN A1Con 2022 ADA RECOMMENDATION SEE BELOW Normal [facility] Comment on above: Result Comment: ADA RECOMMENDED LIMIT 4.0 - 6.0 ADA THERAPEUTIC TARGET < 7.0 ACTION SUGGESTED > 7.0 Performed By: #### A 1C #### [facility] [address] [place], [place] [id number] Dr. Gwen Shannon Glucose [Mass/Vol] 105 mg/dL Normal [facility] Comment on above: Performed By: #### A 1C #### [facility] [address] [address] [address] Gwen Shannon HbA1c (Bld) [Mass fraction] 5.3 % Normal 4.5-6.2 [facility] Comment on above: Performed By: #### A 1C #### [facility] [address] [address] [address] Gwen Shannon IRONon 03-27-2022 Iron [Mass/Vol] 52.0 ug/dL Critically low 65.0-175.0 [facility] Comment on above: Performed By: #### B 12FOL, VITAD, IRON #### [facility] [address] [place] [address] Dr. Gwen Shannon LIPID PROFILEon 03-27-2022 CHOL-HDL RATIO NORM SEE BELOW Normal [facility] Comment on above: Result Comment: 3.3 - 4.4 LOW RISK 4.4 - 7.1 AVERAGE RISK 7.1 - 11.0 MODERATE RISK >11.0 HIGH RISK Performed By: #### B 12FOL, VITAD, IRON #### [facility] [address] [place] [address] Dr. Gwen Shannon Cholesterol [Mass/Vol] 181 mg/dL Normal <=200 [facility] Comment on above: Performed By: #### B 12FOL, VITAD, IRON #### [facility] [address] [address] [address] Gwen Shannon Cholesterol in HDL [Mass/Vol] 29 mg/dL Critically low 40-60 [facility] Comment on above: Performed By: #### B 12FOL, VITAD, IRON #### [facility] [address] [place] [address] Dr. Gwen Shannon Cholesterol in LDL [Mass/Vol] 136.8 mg/dL Normal [facility] Comment on above: Performed By: #### B 12FOL, VITAD, IRON #### [facility] [address] [place] [address] Dr. Gwen Shannon Cholesterol.total/Cho lesterol in HDL [Mass ratio] 6.2 {ratio} Normal [facility] Comment on above: Performed By: #### B 12FOL, VITAD, IRON #### [facility] [address] [address] [address] Gwen Shannon HDL NORMAL > or = 60 mg/dl - LOW CARDIOVASCULAR RISK <40 mg/dl - HIGH CARDIOVASCULAR RISK Normal [facility] Comment on above: Performed By: #### B 12FOL, VITAD, IRON #### [facility] [address] [address] [address] Gwen Shannon LDL CALC NORMAL SEE BELOW Normal [facility] Comment on above: Result Comment: <100 mg/dl OPTIMAL 100 - 129 mg/dl NEAR OR ABOVE OPTIMAL 130 - 159 mg/dl BORDERLINE HIGH 160 - 189 mg/dl HIGH >190 mg/dl VERY HIGH Performed By: #### B 12FOL, VITAD, IRON #### [facility] [address] [address] [address] Gwen Shannon Triglyceride [Mass/Vol] 76 mg/dL Normal <=150 [facility] Comment on above: Performed By: #### B 12FOL, VITAD, IRON #### [facility] [address] [address] [address] Gwen Shannon VLDL CALC 15.2 mg/dL Normal [facility] Comment on above: Performed By: #### B 12FOL, VITAD, IRON #### [facility] [address] [address] [address] Gwen Shannon PROF 14(COMP METB)on 023 Albumin [Mass/Vol] 3.5 g/dL Normal 3.4-5.0 [facility] Comment on above: Performed By: #### T SH, CMP, T7, LIPID, URIC #### [facility] [address] [address] [address] Gwen Shannon Albumin/Globulin [Mass ratio] 0.8 {ratio} Normal [facility] Comment on above: Performed By: #### T SH, CMP, T7, LIPID, URIC #### [facility] [address] [address] [address] Gwen Shannon ALP [Catalytic activity/Vol] 139 U/L Critically high 46-116 [facility] Comment on above: Performed By: #### T SH, CMP, T7, LIPID, URIC #### [facility] [address] [address] [address] Gwen Shannon ALT [Catalytic activity/Vol] 24 U/L Normal 16-63 [facility] Comment on above: Performed By: #### T SH, CMP, T7, LIPID, URIC #### [facility] [address] [place] [address] Dr. Gwen Shannon Anion gap [Moles/Vol] 13.9 mmol/L Normal [facility] Comment on above: Performed By: #### T SH, CMP, T7, LIPID, URIC #### [facility] [address] [place] [address] Dr. Gwen Shannon AST [Catalytic activity/Vol] 18 U/L Normal 15-37 [facility] Comment on above: Performed By: #### T SH, CMP, T7, LIPID, URIC #### [facility] [address] [place] [address] Dr. Gwen Shannon Bilirubin [Mass/Vol] 0.2 mg/dL Normal 0.2-1.0 [facility] Comment on above: Performed By: #### T SH, CMP, T7, LIPID, URIC #### [facility] [address] [place] [address] Dr. Gwen Shannon Calcium [Mass/Vol] 8.7 mg/dL Normal 8.5-10.1 [facility] Comment on above: Performed By: #### T SH, CMP, T7, LIPID, URIC #### [facility] [address] [place] [address] Dr. Gwen Shannon Chloride [Moles/Vol] 104 mmol/L Normal 98-107 [facility] Comment on above: Performed By: #### T SH, CMP, T7, LIPID, URIC #### [facility] [address] [place] [address] Dr. Gwen Shannon CO2 [Moles/Vol] 24.9 mmol/L Normal 21.0-32.0 [facility] Comment on above: Performed By: #### T SH, CMP, T7, LIPID, URIC #### [facility] [address] [address] [address] Gwen Shannon Creatinine [Mass/Vol] 1.00 mg/dL Normal 0.70-1.30 [facility] Comment on above: Performed By: #### T SH, CMP, T7, LIPID, URIC #### [facility] [address] [address] [address] Gwen Shannon EGFR-AF EQUATORIAL GUINEAN >60 Normal >=60 [facility] Comment on above: Performed By: #### T SH, CMP, T7, LIPID, URIC #### [facility] [address] [place] [address] Dr. Gwen Shannon EGFR-NON AF EQUATORIAL GUINEAN >60 Normal >=60 [facility] Comment on above: Performed By: #### T SH, CMP, T7, LIPID, URIC #### [facility] [address] [address] [address] Gwen Shannon Globulin (S) [Mass/Vol] 4.2 g/dL Normal [facility] Comment on above: Performed By: #### T SH, CMP, T7, LIPID, URIC #### [facility] [address] [address] [address] Gwen Shannon Glucose [Mass/Vol] 89 mg/dL Normal 74-106 [facility] Comment on above: Performed By: #### T SH, CMP, T7, LIPID, URIC #### [facility] [address] [address] [address] Gwen Shannon Potassium [Moles/Vol] 3.8 mmol/L Normal 3.5-5.1 [facility] Comment on above: Performed By: #### T SH, CMP, T7, LIPID, URIC #### [facility] [address] [address] [address] Gwen Shannon Protein [Mass/Vol] 7.7 g/dL Normal 6.4-8.2 [facility] Comment on above: Performed By: #### T SH, CMP, T7, LIPID, URIC #### [facility] [address] [address] [address] Gwen Shannon Sodium [Moles/Vol] 139 mmol/L Normal 136-145 [facility] Comment on above: Performed By: #### T SH, CMP, T7, LIPID, URIC #### [facility] [address] [place] [address] Dr. Gwen Shannon Urea nitrogen [Mass/Vol] 17.0 mg/dL Normal 7.0-18.0 [facility] Comment on above: Performed By: #### T SH, CMP, T7, LIPID, URIC #### [facility] [address] [place] [address] Dr. Gwen Shannon Urea nitrogen/Creatinine [Mass ratio] 17.0 mg/mg Normal [facility] Comment on above: Performed By: #### T SH, CMP, T7, LIPID, URIC #### [facility] [address] [place] [address] Dr. Gwen Shannon TSHon 03-27-2022 TSH 2.036 uIU/mL Normal 0.358-3.740 [facility] Comment on above: Performed By: #### T SH, CMP, T7, LIPID, URIC #### [facility] [address] [place] [address] Dr. Gwen Shannon URIC ACID SERUMon 03-27-2022 Urate [Mass/Vol] 7.4 mg/dL Critically high 3.5-7.2 [facility] Comment on above: Performed By: #### T SH, CMP, T7, LIPID, URIC #### [facility] [address] [place] [address] Dr. Gwen Shannon VIT B12 AND FOLATEon 023 Cobalamin (Vitamin B12) [Mass/Vol] 519.0 pg/mL Normal 193.0-986.0 [facility] Comment on above: Performed By: #### B 12FOL, VITAD, IRON #### [facility] [address] [place] [address] Dr. Gwen Shannon FOLATE 3.80 ng/mL Critically low 8.60-58.90 [facility] Comment on above: Performed By: #### B 12FOL, VITAD, IRON #### [facility] [address] [address] [address] Gwen Shannon VITAMIN D 25 OHon 03-27-2022 VIT D 25-OH 6.9 ng/mL Normal [facility] Comment on above: Performed By: #### B 12FOL, VITAD, IRON #### [facility] [address] [address] [address] Gwen Shannon VIT D RANGES SEE BELOW Normal [facility] Comment on above: Result Comment: <20 ng/mL Vit D deficient 20 - <30 ng/mL Vit D insufficient 30 - 100 ng/mL Vit D sufficient >100 ng/mL Potential Toxicity Performed By: #### B 12FOL, VITAD, IRON #### [facility] [address] [address] [address] Gwen Shannon Formson 09-16-2020 Forms [id number] 6#1.00CD:127 Normal [facility] Physician Referralon 021 Physician Referral [id number] #1.00CD:127 Normal [facility] Ambulatory Clinical Summaryo n 04-04-2020 Ambulatory Clinical Summary {[id number]}CD:[id number] Normal [facility] Gastroenterology Office/Clin ic Noteon 04-04-2020 [...] water, # 160 cap(s), Refills(s) 1, Pharmacy: [facility] #[id number], 182, cm, 04/04/20 13:43:00 EST, Height/Length Dosing, 174.1, kg, 04/04... 2. Anal pain (K62.89: Other specified diseases of anus and rectum) Hemorrhoids VS anal fissure Partially improved with Anusol/MiraLAX/fiber colonoscopy 10/04/19 which showed some prominent rectal veins, some perianal irritation, no ulcerations or bleeding. Follow-up With When Contact Information Yvon Tolliver MD In 2 weeks [address], [place] [address]- Additional Instructions: Problem List/Past Medical History Ongoing [...] type 2: Mother. Heart disease: Mother. Normal [facility] Comment on above: Result Comment: Elec tronically Signed By: Yvon Tolliver MD\.br\Date and Time Signed: 04/04/20 14:18 EST Ambulatory Clinical Summaryo n 03-21-2020 Ambulatory Clinical Summary {[id number]}CD:[id number] Normal [facility] Gastroenterology Office/Clin ic Noteon 03-21-2020 Gastroenterology Office/Clinic Note Chief Complaint 4 week f/u History of Present Illness This is a 19 year old male with PHX of bladder CA, Bipolar disorder and Asperger?s disorder who presents today for follow-up Rectal bleeding, started 09/2019, I put him on fiber but this did not help. He saw Dr Diaz at [facility] 09/25/19, had a colonoscopy 10/04/19 which showed [...] Daily, # 255 gram, Refills(s) 3, Pharmacy: [facility] #[id number], 182, cm, 03/21/20 13:54:00 EST, Height/Length Dosing, 175, kg, 03/21/20 13:54:00 EST, Weight Dosing 2. Anal pain (K62.89: Other specified diseases of anus and rectum) ? hemorrhoids vs anal fissure Ordered: hydrocortisone topical, 25 mg = 1 supp, Rectal, BID, X 7 day(s), # 14 supp, Refills(s) 0, Pharmacy: [facility] #[id number], 182, cm, 03/21/20 13:54:00 EST, Height/Length Dosing, 175, kg, 03/21/20 13:54:00 EST, Weight Dosing 3. Constipation (K59.00: Constipation, unspecified) Uncontrolled MiraLAX Metamucil Follow-up With When Contact Information Yvon Tolliver MD In [address] [place], [place] [address], [place] [address]- Additional Instructions: Problem List/Past Medical [...] type 2: Mother. Heart disease: Mother. Normal [facility] Comment on above: Result Comment: Elec tronically Signed By: Sahil Velasco MD, Yvon\.br\Date and Time Signed: 03/21/20 19:32 EST Ambulatory Clinical Summaryo n 02-19-2020 Ambulatory Clinical Summary {[id number]}CD:[id number] Normal [facility] Gastroenterology Office/Clin ic Noteon 02-19-2020 [...] a BM He saw Dr Diaz at [facility] 09/25/19, had a colonoscopy 10/04/19 which showed [...] Probably hemorrhoids vs anal fissure colonoscopy at [place] by Dr. Diaz 09/2019: prominent rectal veins and perianal irritation Average risk Metamucil H&H If no improvement repeat colonoscopy Ordered: psyllium, 1,050 mg = 2 cap(s), Oral, Daily, Take 2 hour apart from the other medications with at least 8 ounces of water, # 160 cap(s), Refills(s) 1, Pharmacy: [facility] #[id number], 182.9, cm, 02/19/20 8:51:00 EST, Height/Length Dosing, 172, kg, 02/18/... Hemoglobin and Hematocrit Follow-up With When Contact Information Abdal Rod MD, [place] In 4 weeks [address] [place] [address]- Additional Instructions: Problem List/Past Medical History Ongoing [...] type 2: Mother. Heart disease: Mother. Normal [facility] Comment on above: Result Comment: Elec tronically Signed By: Yvon Tolliver MD\.br\Date and Time Signed: 02/19/20 09:15 EST Outside Colonoscopyon 2019 Outside Colonoscopy [id number] #1.00CD:127 Normal [facility] [place] 09-28-2019 Consent [id number] #1.00CD:127 Normal [facility] Consultation Noteon 09-28-19 Consultation Note [id number] #1.00CD:127 Normal [facility] SURGICAL PATHOLOGYon 019 SURGICAL PATHOLOGY Specimen #: [id number] Submitting Physician: GWEN SHANNON M.D. FINAL DIAGNOSIS Outside slide consultation, [facility], [place], [place] Urinary bladder, biopsy ([id number], A1-A4; 01/18/2019) - Non-invasive papillary urothelial carcinoma, [...] (Electronic Signature) SPECIMEN SUBMITTED A: 4 SLIDES ([id number]) CLINICAL DATA None provided. Patient ID #: Date of Report: 01/27/2019 Date of Procedure: 01/26/2019 Date of Receipt: 01/26/2019 Submitted by: GWEN SHANNON M.D. Location: Diagnostic interpretation performed at [facility], [address] [place], [place] [address]. CLIA Number: [id number] Normal [facility] Comment on above: Performed By: #### S #### See report for performing lab information. Encounters Encounter Date Encounter Type Care Provider Facility Start: 08-15-2023 End: 08-16-2023 Emergency department patient visit HAN Richey [facility] Start: 02-05-2023 ambulatory Matt Deluna acility:[facility] Start: 05-20-[address] JESUS ALBERTO MILAN . Facili ty:[facility] Start: 03-30-2022 Encounter for genera l adult medical examination without abnormal findings DR JESUS ALBERTO MILAN . [facility] Start: 03-27-2022 End: 03-28-[address] DOCTOR SPANN Facility:[facility] Start: 03-27-2022 End: 03-28-2022 Encounter for general adult medical examination without abnormal findings DR JESUS ALBERTO MILAN . Facility:[facility] Start: 01-29-[address] JESUS ALBERTO MILAN . Facili ty:[facility] Payers Date Payer Category Payer Medicaid [id number] 1999 Unknown [id number] 2.16.84 [id number] 1999 Unknown [id number] 2.16.84 [id number] 1999 Unknown [id number] 2.16.84 [id number] 1999 Unknown [id number] 2.16.84 [id number] 1999 Unknown [id number] 2.16.8 [id number] 1999 Unknown [id number] 2.16.8 [id number] 1959 Self-pay 1959 Unknown [id number] Unknown [id number] 2.16.8 [id number] Summary Purpose Family History No Family History [...] section and content) DATE CREATED AUTHOR 01/27/2019 [facility] DATE CREATED AUTHOR AUTHOR'S ORGANIZ ATION 09/16/2020 [facility] DATE CREATED AUTHOR AUTHOR'S ORGANIZ ATION 07/07/[address] [facility] DATE CREATED AUTHOR AUTHOR'S ORGANIZ ATION 04/19/2023 [facility] DATE CREATED AUTHOR AUTHOR'S ORGANIZ ATION 08/16/2023 [facility] FOR RECORDS PERTAINING TO PATIENTS WHO [...] BE BASED ON THE PRIMARY CLINICAL RECORDS. [facility] [employer] [facility]. provides no warranty or guarantee of the accuracy or completeness of information in this document.
[2024-06-19 08:53] LABS: Basophils Percent Auto 0.5 % (0.2-2.0); Eosinophils Absolute Auto 0.2 10^3/uL (0.0-0.7); Eosinophils Percent Auto 2.4 % (0.9-7.0); Hematocrit 40.6 % (42.0-54.0); Hemoglobin 13.6 g/dL (14.0-18.0); Immature Granulocytes Abs Auto 0.04 10^3/uL (0.00-0.03); Immature Granulocytes Pct Auto 0.5 % (0.0-0.5); Lymphocytes Absolute Auto 2.2 10^3/uL (1.2-3.8); Lymphocytes Percent Auto 29.2 % (20.5-60.0); Mean Corpuscular HGB Conc 33.5 g/dL (29.9-35.2); Mean Corpuscular Hemoglobin 28.2 pg (25.9-34.0); Mean Corpuscular Volume 84.1 fL (80.0-94.0); Mean Platelet Volume 9.9 fL (9.5-13.5); Monocytes Absolute Auto 0.6 10^3/uL (0.3-0.8); Monocytes Percent Auto 8.6 % (1.7-12.0); Neutrophils Absolute Auto 4.4 10^3/uL (1.4-6.5); Neutrophils Percent Auto 58.8 % (43.0-75.0); Platelet Count 237 10^3/uL (150-450); Red Blood Count 4.83 10^6/uL (4.70-6.10); Red Cell Distribution Width 13.5 % (11.0-15.0); White Blood Count 7.5 10^3/uL (4.0-11.0)
== END 2024-06-19 08:32 | disposition home or self-care (01) ==
LOC: LAB 08:32
PROVIDERS: PCP Family Medicine
DX: K62.5 Hemorrhage of anus and rectum (principal)
CPT/HCPCS: 36415; 85025

== ENCOUNTER 2024-10-27 08:31 | Outpatient (OUT) | payer MEDICAID, SELFPAY ==
--- OUTSIDE RECORDS SUMMARY | 2024-10-05 09:30 | XMS_ITS ---
Author Organization [facility] [place] Address [address] [place] [address] Care Team Providers Care Trust Officer Name Role Phone Yaron Sweeney Primary Care Provider Allergies No Known Allergies REASON FOR VISIT 6 mo med check- CSA signed Medications Medication SIG (Take, Route, Frequency, Duration) Notes Start Date End Date Status cloNIDine HCl 0.2 MG 1 tablet Orally Onc e a day for 30 days Active buPROPion HCl ER (XL) 300 MG 1 tablet Or al Once a day for 30 days Active Abilify 2 MG 1 tablet Orally Once a day for 30 days 03/23/2024 Active OXcarbazepine 300 MG 1 tablet in the am and 2 at HS Orally Twice a day for 30 days Active DULoxetine HCl 60 MG 2 capsules Oral estrellita ry day for 30 days Active LORazepam 2 MG 1 tablet Orally ever y 6 hours prn for 30 days 10/05/2024 Active Social History Tobacco Use: Social History Observation Description Date Details (start date - stop date) Current Smoker NA - NA Tobacco Use/Smoking Question Answer Notes Patient is a current smoker How often do you smoke cigarettes? every day How many cigarettes a day do you smoke? 31 or mo re How soon after you wake up do you smoke your fir st cigarette? within 5 minutes Are you interested in quitting? Not ready to woody t Vital Signs Weight 406.0 lbs 10/05/2024 Height 72 in 10/05/2024 Blood pressure systolic 152 mm Hg 10/06/19 25 Blood pressure diastolic 94 mm Hg 025 BMI 55.06 kg/m2 10/05/2024 Encounters Encounter Location Date Provider Diagnosis [facility] [address] [place] [address] 10/05/2024 Yaron Sweeney Aspergers' syndrome F84.5 ; ADHD F90.9 ; Fatigue R53.83 ; Sleep apnea G47.30 and Hematochezia K92.1 Assessments Encounter Date Diagnosis (ICD Code) Assessment Notes Treatment Notes Treatment Clinical Notes Section Notes 10/05/2024 Aspergers' syndrome (ICD-10 - F84.5) 10/05/2024 ADHD (ICD-10 - F90.9) 10/05/2024 Fatigue (ICD-10 - R53.83) 10/05/2024 Sleep apnea (ICD-10 - G47.30) 10/05/2024 Hematochezia (ICD-10 - K92.1) Plan Of Treatment Medication Medication Name Sig Start Date Stop Date Notes LORazepam 2 MG 1 tablet Orally ever y 6 hours prn for 30 days 10/05/2024 Pending Test Test Name Order Date HEMOGLOBIN A1C (GLYCO) 10/05/2024 INSULIN, TOTAL 10/05/2024 LIPID PANEL (CHOL/TRIG/HDL/LDL) 10/06/19 25 THYROID PANEL (T4/TSH/FREE T3) Oxcarbazepine (Trileptal),S 10/05/2024 CMP (COMP MET SUBRAMANIAN) w/eGFR CKD-EPI 2024 CBC WITH DIFF 10/05/2024 Progress Notes * Jovi RAMOSDOB:[birth year] (23 yo M)Acc No.[id number]:10/05/2024 Progress Note Patient: Jovi Toth EA Provider: Rossi Sweeney (TTC)MD :2000 A ge:23 Y S ex:Male Date:10/05/2024 Address:[address] [place], [place] [id number] Check In:01:30 PM ESTCheck O ut:02:12 PM EST Subjective: * Chief Complaints: * 6 mo med check- CSA signed * HPI: G eneral: Disucsed meds - disucsed weight - needs labs. * ROS: E ENT: hearing changes d enies. v isual changes d enies.?non-healing mouth sores d enies. s wollen glands or neck lumps d enies. h oarseness d enies. s ore throat d enies. d ifficulty swallowing d enies. n ose bleeds d enies. n roberto congestion d enies. e ar ache d enies. e ar discharge?denies. r inging in ears d enies. l ight sensitivity d enies. e ye pain d enies. b lurring d enies. e ye irritation d enies. d ouble vision d enies.?vision loss d enies. G eneral/Constitutional: Sweats: D enies. F atigue d enies. S leep problems d enies. A norexia d enies. M alaise d enies. W eight loss d enies.?Fatigue or Weakness d enies. F ever or Chills d enies. C ardiovascular: Shortness of Breath w/lying flat d enies. L ightheadedness/dizziness d enies. C hest tightness/ heavy pressure d enies. S welling of legs, ankles, or feet d enies. W aking up with shortness of breath d enies. C hest pain denies. P alpitations d enies. W eight gain d enies. R espiratory: Chronic or frequent cough d enies. C oughing up blood?denies. D ifficulty breathing d enies. P roductive cough d enies. S noring?denies. S hortness of breath that awakens from sleep (PND) d enies. C hest pain d enies. S putum production d enies. W heezing d enies. M usculoskeletal: Joint pain d enies. J oint Fluid d enies. B ack pain d enies. K nee pain d enies. N enrico pain d enies. J oint Stiffness d enies. M uscle cramps d enies. W eakness of muscles d enies. A rthritis d enies. M uscle aches d enies. P ain in shoulder(s) d enies. S wollen joints d enies. * Active Problem List F41.1 Generalized anxiety disorder Modified On:07/06/2022U Status:confirmed K92.1 Hematochezia Modified On:12/03/2022U Status:confirmed R53.83 Fatigue Modified On:12/22/2022U Status:confirmed F84.5 Aspergers' syndrome Modified On:04/22/2023 Status:confirmed F90.9 ADHD Modified On:12/03/2022U Status:confirmed L30.9 Eczema Modified On:04/22/2023 Status:confirmed G47.00 Insomnia Modified On:12/03/2022 Status:confirmed G47.33 Obstructive sleep ap john (adult) (pediatric) Modified On:04/22/2023 Status:confirmed G47.30 Sleep apnea Modified On:11/11/2023 Status:confirmed R31.9 Hematuria Modified On:02/07/2024 Status:confirmed * Medical History: * Surgical History: S eptoplasty, T&A 10/2016Colonoscopy 2024 * Hospitalization/Major Diagno stic Procedure: D enies Past Hospitalization * Family History: F ather: unknown. M other: alive, Heart Disease, diagnosed with Unspecified heart disease.?Brother(s): alive. S ister(s): alive. 2 brother(s) , 1 sister(s) . . * Social History: T obacco Use: T obacco Use/Smoking P atient is a c urrent smoker H ow often do you smoke cigarettes? e very day H ow many cigarettes a day do you smoke? 3 1 or more H ow soon after you wake up do you smoke your first cigarette? w ithin 5 minutes A re you interested in quitting? N ot ready to quit * Medications: T akingAbilify(ARIPiprazole) 2 MG Tablet 1 tablet Orally Once a day buPROPion HCl ER (XL) 300 MG Tablet Extended Release 24 Hour 1 tablet Oral Once a day cloNIDine HCl 0.2 MG Tablet 1 tablet Orally Once a day DULoxetine HCl 60 MG Capsule Delayed Release Particles 2 capsules Oral every day LORazepam 2 MG Tablet 1 tablet Orally every 6 hours prn OXcarbazepine 300 MG Tablet 1 tablet in the am and 2 at HS Orally Twice a day Medication List reviewed and reconciled with the patientTaking Michellefkimberley(ARIPiprazole) 2 MG Tablet 1 tablet Orally Once a day Taking buPROPion HCl ER (XL) 300 MG Tablet Extended Release 24 Hour 1 tablet Oral Once a day Taking cloNIDine HCl 0.2 MG Tablet 1 tablet Orally Once a day Taking DULoxetine HCl 60 MG Capsule Delayed Release Particles 2 capsules Oral every day Taking LORazepam 2 MG Tablet 1 tablet Orally every 6 hours prn Taking OXcarbazepine 300 MG Tablet 1 tablet in the am and 2 at HS Orally Twice a day Medication List reviewed and reconciled with the patient * Allergies: N .K.D.A.no[Allergies Verified] Objective: * Vitals: W t:406.0lbs, Ht: 72 in, BP:152/94mm Hg, BMI:55.06Index, Ht-cm: 182.88 cm, Wt-k.16 kg. * Examination: P hysical Exam: GENERAL: w ell developed, well nourished, in no acute distress. HEAD: n ormocephalic/atraumatic. EYES: p upils equal, round and reactive to light, conjunctivae and sclerae normal. EARS: n o deformity or lesion of external ear, canals and TM appear normal bilaterally, TM's intact, not inflamed with normal light reflex, hearing grossly normal to conversational speech. NOSE: n o deformity, discharge, inflammation, or lesions.? MOUTH: m ucous membranes moist, normal oropharynx and posterior pharynx without lesions or exudates, tongue normal, dentition normal. NECK: n enrico supple, no masses or palpable cervical nodes, trachea midline, thyroid without nodules, masses, tenderness, or enlargement. CHEST: n o chest wall deformity, no chest wall tenderness.? LUNGS: n ormal respiratory effort and clear to auscultation, no wheezes, rales, or rhonchi, good air exchange. CARDIO: r egular rate and rhythm, normal S1 and S2, nor murmur, rub, or gallop. PULSES: n ormal capillary refill. ABDOMEN: s oft, non-distended, non-tender, no masses. MUSCULOSKELETAL: n o deformity or scoliosis noted, normal range of motion, joints normal, no erythema, edema, effusion, or ecchymosis. EXTREMITY: n o clubbing, cyanosis, edema, or deformity with normal ROM in both upper and lower bilateral extremities. NEUROLOGIC: g rossly normal. SKIN: n o rashes, ulcerations, or suspicious lesions. LYMPH NODES: n o cervical adenopathy, nodes normal. MENTAL STATUS: a lert and oriented x3, normal mood and affect. Assessment: * Assessment: 1. A spergers' syndrome - F84.5 (Primary) 2 . A DHD - F90.9 ?3. F atigue - R53.83 4 . S leep apnea - G47.30 5 . H ematochezia - K92.1 Plan: * Treatment: 2. A DHD L AB: HEMOGLOBIN A1C (GLYCO) L AB: INSULIN, TOTAL L AB: LIPID PANEL (CHOL/TRIG/HDL/LDL) L AB: THYROID PANEL (T4/TSH/FREE T3) L AB: CMP (COMP MET SUBRAMANIAN) w/eGFR CKD-EPI L AB: CBC WITH DIFF 3. F atigue L AB: HEMOGLOBIN A1C (GLYCO) L AB: INSULIN, TOTAL L AB: LIPID PANEL (CHOL/TRIG/HDL/LDL) L AB: THYROID PANEL (T4/TSH/FREE T3) L AB: CMP (COMP MET SUBRAMANIAN) w/eGFR CKD-EPI L AB: CBC WITH DIFF 4. S leep apnea L AB: HEMOGLOBIN A1C (GLYCO) L AB: INSULIN, TOTAL L AB: LIPID PANEL (CHOL/TRIG/HDL/LDL) L AB: THYROID PANEL (T4/TSH/FREE T3) L AB: CMP (COMP MET SUBRAMANIAN) w/eGFR CKD-EPI L AB: CBC WITH DIFF 5. H ematochezia L AB: HEMOGLOBIN A1C (GLYCO) L AB: INSULIN, TOTAL L AB: LIPID PANEL (CHOL/TRIG/HDL/LDL) L AB: THYROID PANEL (T4/TSH/FREE T3) L AB: CMP (COMP MET SUBRAMANIAN) w/eGFR CKD-EPI L AB: CBC WITH DIFF * Procedure Codes: * Preventive Medicine: Screenings/Counseling: B KS ACTION PLAN Above Normal BMI Follow-up D ietary management education, guidance, and counseling * * Sign off status: Completed Visit Status: C HK (Check Out) true * Provider: Rossi POLLARD)MD Date: 0 10/05/2024 Generated for Printi ng/Faxing/eTransmitting on: 0 10/27/2024 08:36 AM EDT History and Physical Notes * HPI (History of Present Illness) Category Sub-Category Detail Notes Category Not es General Disucsed meds - disucsed weight - needs labs Examination Category Sub-Category Detail Notes Category Not es Physical Exam GENERAL: well developed, well nourished, in no acute distress HEAD: normocephalic/atraum atic EYES: pupils equal, round and reactive to light, conjunctivae and sclerae normal EARS: no deformity or lesi on of external ear, canals and TM appear normal bilaterally, TM's intact, not inflamed with normal light reflex, hearing grossly normal to conversational speech NOSE: no deformity, discha rge, inflammation, or lesions MOUTH: mucous membranes eyal st, normal oropharynx and posterior pharynx without lesions or exudates, tongue normal, dentition normal NECK: neck supple, no mass es or palpable cervical nodes, trachea midline, thyroid without nodules, masses, tenderness, or enlargement CHEST: no chest wall deform ity, no chest wall tenderness LUNGS: normal respiratory e ffort and clear to auscultation, no wheezes, rales, or rhonchi, good air exchange CARDIO: regular rate and rhy thm, normal S1 and S2, nor murmur, rub, or gallop PULSES: normal capillary ref ill ABDOMEN: soft, non-distended, non-tender, no masses RECTAL: MUSCULOSKELETAL: no deformity or scol iosis noted, normal range of motion, joints normal, no erythema, edema, effusion, or ecchymosis EXTREMITY: no clubbing, cyanosi s, edema, or deformity with normal ROM in both upper and lower bilateral extremities NEUROLOGIC: grossly normal SKIN: no rashes, ulceratio ns, or suspicious lesions LYMPH NODES: no cervical adenopat hy, nodes normal MENTAL STATUS: alert and oriented x 3, normal mood and affect
--- OUTSIDE RECORDS SUMMARY | 2024-10-05 10:04 | XMS_ITS ---
Author Organization [facility] [place] Address [address] [place] [address] Care Team Providers Care Cuff Turner Name Role Phone Yaron Sweeney Primary Care Provider REASON FOR VISIT call WG Medications Medication SIG (Take, Route, Frequency, Duration) Notes Start Date End Date Status OXcarbazepine 300 MG 1 tablet in the am and 2 at HS Orally Twice a day for 30 days Active cloNIDine HCl 0.2 MG 1 tablet Orally Onc e a day for 30 days Active DULoxetine HCl 60 MG 2 capsules Oral estrellita ry day for 30 days Active Abilify 2 MG 1 tablet Orally Once a day for 30 days 03/23/2024 Active buPROPion HCl ER (XL) 300 MG 1 tablet Or al Once a day for 30 days Active LORazepam 2 MG 1 tablet Orally ever y 6 hours prn for 30 days 10/05/2024 Active Encounters Encounter Location Date Provider Diagnosis [facility] [address] [place] [address] 10/05/2024 Yaron Sweeney Aspergers' syndrome F84.5 Assessments Encounter Date Diagnosis (ICD Code) Assessment Notes Treatment Notes Treatment Clinical Notes Section Notes 10/05/2024 Aspergers' syndrome (ICD-10 - F84.5) Plan Of Treatment Medication Medication Name Sig Start Date Stop Date Notes OXcarbazepine 300 MG 1 tablet in the am and 2 at HS Orally Twice a day for 30 days cloNIDine HCl 0.2 MG 1 tablet Orally Onc e a day for 30 days DULoxetine HCl 60 MG 2 capsules Oral estrellita ry day for 30 days Abilify 2 MG 1 tablet Orally Once a day for 30 days 03/23/2024 buPROPion HCl ER (XL) 300 MG 1 tablet Or al Once a day for 30 days Progress Notes * Jovi RAMOSDOB:[birth year] (23 yo M)Acc No.[id number]:10/05/2024 Patient: Jovi Toth EA :2000 A ge:23 Y S ex:Male Address:[address] [place] [id number] * Refills Refill Abilify Tablet, 2 MG, Orally, 30, 1 tablet, Once a day, 30 days, Refills=11 Refill buPROPion HCl ER (XL) Tablet Extended Release 24 Hour, 300 MG, Oral, 30 Tablet, 1 tablet, Once a day, 30 days, Refills=11 Refill cloNIDine HCl Tablet, 0.2 MG, Orally, 30 Tablet, 1 tablet, Once a day, 30 days, Refills=11 Refill DULoxetine HCl Capsule Delayed Release Particles, 60 MG, Oral, 60, 2 capsules, every day, 30 days, Refills=11 Refill OXcarbazepine Tablet, 300 MG, Orally, 180, 1 tablet in the am and 2 at HS, Twice a day, 30 days, Refills=11 Subjective: * Chief Complaints: * c all WG * Medical History: * Surgical History: * Hospitalization/Major Diagno stic Procedure: * Medications: T akingAbilify(ARIPiprazole) 2 MG Tablet [...] 2 at HS Orally Twice a day Taking Abilify(ARIPiprazole) 2 MG Tablet 1 tablet Orally Once [...] 2 at HS Orally Twice a day Objective: * Vitals: * Physical Examination: Assessment: * Assessment: 1. A spergers' syndrome - F84.5 Plan: * Treatment: 2. O thers Refill buPROPion HCl ER (XL) Tablet Extended Release 24 Hour, 300 MG, 1 tablet, Oral, Once a day, 30 days, 30 Tablet, Refills 11; R efill cloNIDine HCl Tablet, 0.2 MG, 1 tablet, Orally, Once a day, 30 days, 30 Tablet, Refills 11; R efill DULoxetine HCl Capsule Delayed Release Particles, 60 MG, 2 capsules, Oral, every day, 30 days, 60, Refills 11; R efill OXcarbazepine Tablet, 300 MG, 1 tablet in the am and 2 at HS, Orally, Twice a day, 30 days, 180, Refills 11. * Procedure Codes: * true * Date: Generated for Aj shin/Nellie/Ladyitting on: 0 10/27/2024 08:35 AM EDT
--- OUTSIDE RECORDS SUMMARY | 2024-10-09 06:34 | XMS_ITS ---
Author Organization [facility] [place] Address [address] [place] [address] Care Team Providers Care Comfort Filler Name Role Phone Yaron Sweeney Primary Care Provider REASON FOR VISIT diabetes shot Medications Medication SIG (Take, Route, Fr equency, Duration) Notes Start Date End Date Status Mounjaro 2.5 MG/0.5ML Inject 2.5mg Subcu taneous once weekly DX G47.33 for 28 days 10/09/2024 Act william Encounters Encounter Location Date Provider Diagnosis [facility] [address] [place] [address] 10/09/2024 Yaron Sweeney Plan Of Treatment Medication Medication Name Sig Start Date Stop Date Notes Mounjaro 2.5 MG/0.5ML Inject 2.5mg Subcu taneous once weekly DX G47.33 for 28 days 10/09/2024 Progress Notes * Jovi RAMOSDOB:[birth year] (23 yo M)Acc No.[id number]:10/09/2024 Patient: Frank Toth EArichard :2000 A ge:23 Y S ex:Male Address:[address] [place] [address], [phone] * Refills Start Mounjaro Solution Auto-injector, 2.5 MG/0.5ML, Subcutaneous, 2 Milliliter, Inject 2.5mg, once weekly DX G47.33, 28 days, Refills=0 * true * Date: Generated for Aj shin/Nellie/Ladyitting on: 0 10/27/2024 08:35 AM EDT
--- OUTSIDE RECORDS SUMMARY | 2024-10-27 08:35 | XMS_ITS | Clinical Summary ---
Author Organization [facility] Address [id number] [place] [address] Care Team Providers Care Pipe Fitter [employer] Name Role Phone Nato Sweeney MD Primary Care Provider [phone] Allergies No known active allergies Medications buPROPion XL (WELLBUTRIN XL) 300 mg 24 hr tablet Take 1 tablet (300 mg total) by mouth. 7 Active citalopram (CeleXA) 40 mg tablet Take 1 tablet (40 mg total) by mouth. 6 Active cloNIDine (CATAPRES) 0.2 mg tablet Take 0.2 mg by mouth. 7 Active LORazepam (ATIVAN) 1 mg tablet Take 1 mg by mouth every 6 (six) hours. 7 Active OXcarbazepine (TRILEPTAL) 300 mg tablet Take 1 tablet (300 mg total) by mouth. 6 Active ondansetron (ZOFRAN) 4 mg/5 mL solution Take 5 mL (4 mg total) by mouth 3 (three) times a day as needed for nausea or vomiting. 50 mL 0 7 Active buPROPion XL (WELLBUTRIN XL) 150 mg 24 hr tablet Take 1 tablet (150 mg total) by mouth. 7 Active ondansetron ODT (ZOFRAN-ODT) 4 mg disintegrating tablet Dissolve 1 tablet (4 mg total) on tongue every 8 (eight) hours as needed for nausea for up to 10 doses. 10 tablet 9 Active DULoxetine (CYMBALTA) 30 mg capsule Take 1 capsule (30 mg total) by mouth in the morning. Active Active Problems Problem Noted Date Diagnosed Date S/P tonsillectomy 12/03/2016 S/P nasal septoplasty 12/03/2016 Respiratory abnormalities 11/12/2016 Tonsillar hypertrophy 10/21/2016 Deviated septum 09/02/2016 Obstructive sleep apnea 09/02/2016 Chronic sinusitis 09/02/2016 Bipolar 1 disorder 08/05/2016 Autistic behavior 08/05/2016 ADHD (attention deficit hyperactivity disorder) 08/05/2016 Social History Tobacco Use Types Packs/Day Years Used Date Smoking Tobacco: Former Cigarettes Smokeless Tobacco: Never Tobacco Cessation:Ready to Q uit: No; Counseling Given: Yes Alcohol Use Standard Drinks/Week Comments No 0 (1 standard drink = 0.6 oz pur e alcohol) Childcare Answer Date Recorded Childcare Unknown 08/31/2018 Employment Answer Date Recorded Employment Unknown 08/31/2018 Hunger Screening Answer Date Recorded Within the past 12 months we worried whether our food would run out before we got money to buy more. Never True 08/15/2023 Within the past 12 months th e food we bought just didn't last and we didn't have money to get more. Never True 08/15/2023 Purpose - Life Answer Date Recorded Purpose and direction in life Unknown Sex and Gender Information Value Date Recorded Sex Assigned at Not on file Legal Sex Male 9:10 AM EDT Gender Identity Not on file Sexual Orientation Not on file Last Filed Vital Signs Vital Sign Reading Time Taken Comments Blood Pressure 135/77 08/15/2023 8:00 PM EDT Pulse 101 08/15/2023 8:00 PM EDT Temperature 36.7 C (98 F) 08/15/2023 7:31 PM EDT Respiratory Rate 20 08/15/2023 8:00 PM EDT Oxygen Saturation 95% 08/15/2023 8:00 PM EDT Inhaled Oxygen Concentration - - Weight 171.9 kg (379 lb) 08/15/2023 7:31 PM EDT Height 182.9 cm (6') 08/15/2023 7:31 PM EDT Body Mass Index 51.4 08/15/2023 7:31 PM EDT Plan of Treatment Health Maintenance Due Date Last Done Comments Depression Screening 2011 DTaP,Tdap and Td Vaccines (1 - Tdap) 11/14/2018 Adult BMI Screening 08/14/2024 08/15/2023 Tobacco Screening 08/14/2024 08/15/2023 Influenza Vaccine 11/20/2024 01/28/2022, 01/29/2021 Medical Devices Not on file Insurance [facility] MEDICAID Advance Directives * Full Code (Latest Code Status on File) Date Activated Date Inactivated Comments 11/12/2016 3:42 PM 11/13/2016 3:32 PM Care Teams Pipe Fitter [employer] Relationship Specialty Start Date End Date Nato Sweeney MD PCP - General 08/15/23
--- OUTSIDE RECORDS SUMMARY | 2024-10-27 08:36 | XMS_ITS | Patient Health Record ---
Author Organization The [facility] in [place] Address [address] [place] [address] Care Team Providers Care Sky Diver Name Role Phone Yaron Sweeney Primary Care Provider Allergies No Known Allergies Results Component Value Reference Range Notes UA RANDOM W or MICROSCOPIC Reviewed date:02/10/2024 02:58:00 PM Interpretation: Performing Lab: Notes/Report: [facility] , Color Urine DK YELLOW YELLOW Clarity Urine CLEAR CLEAR Specific [place] Urine >=1.030 1.005-1.025 pH Urine 6.0 5.0-9.0 Protein Urine NEGATIVE NEG/TRACE mg/dL Glucose Urine UA NEGATIVE NEGATIVE mg/dL Bilirubin Urine NEGATIVE NEGATIVE Ketones Urine NEGATIVE NEGATIVE mg/dL Blood Urine NEGATIVE NEGATIVE Nitrite Urine NEGATIVE NEGATIVE Urobilinogen Urine 0.2 0.2-1.0 EU/dL Leukocyte Esterase Urine NEGATIVE NEGATIVE WBC Urine 0-2 NONE SEEN #/HPF RBC Urine 0-2 0-2 #/HPF Bacteria Urine TRACE NONE SEEN #/HPF Mucus Urine TRACE NONE SEEN Squamous Epithelial Cell Urine RARE NONE/RARE #/LPF Crystals Seen? None Seen None Seen #/HPF Cast Seen? SEEN NONE SEEN #/LPF Hyaline Casts Urine FEW Urine Culture Indicated ALREADY ORDERED Performing Lab: see note ML - [facility] LB TSH Reviewed date:11/14/2023 10:39:03 PM Interpretation: Performing Lab: Notes/Report: [facility] , Thyroid Stimulating Hormone 1.049 0.358-3.740 uIU/mL Performing Lab: see note ML - [facility] LB T4 Reviewed date:11/14/2023 10:39:03 PM Interpretation: Performing Lab: Notes/Report: [facility] , T4 Thyroxine 7.70 4.50-12.10 ug/dL Performing Lab: see note ML - [facility] LB PROF 14(COMP METB) Reviewed date:11/14/2023 10:39:03 PM Interpretation: Performing Lab: Notes/Report: [facility] , Sodium 138 136-145 mmol/L Potassium 4.0 3.5-5.1 mmol/L Chloride 104 98-107 mmol/L Carbon Dioxide 23.9 21.0-32.0 mmol/L Anion Gap 14.1 Glucose 102 74-106 mg/dL Blood Urea Nitrogen 12.0 7.0-18.0 mg/dL Creatinine 0.97 0.70-1.30 mg/dL Estimated GFR ( Jessica >60 >=60 Estimated GFR (Non- Alexus >60 >=60 BUN Creatinine Ratio 12.4 Calcium 9.0 8.5-10.1 mg/dL Bilirubin Total 0.3 0.2-1.0 mg/dL Aspartate Amino Transferase 18 15-37 U/L Alanine Aminotransferase 31 16-63 U/L Alkaline Phosphatase 131 46-116 U/L Total Protein 7.4 6.4-8.2 g/dL Albumin Level 3.7 3.4-5.0 g/dL Globulin 3.7 Albumin Globulin Ratio 1.0 Performing Lab: see note ML - [facility] LB LIPID PROFILE Reviewed date:11/14/2023 10:39:03 PM Interpretation: Performing Lab: Notes/Report: [facility] , Triglycerides 112 <=150 mg/dL Cholesterol 180 <=200 mg/dL HDL Cholesterol 31 40-60 mg/dL <40 mg/dl - HIGH CARDIOVASCULAR RISK > or =60 mg/dl - LOW CARDIOVASCULAR RISK LDL Cholesterol Calculated 127.0 130-159 mg/dl BORDERLINE HIGH 100-129 mg/dl NEAR OR ABOVE OPTIMAL <100 mg/dl OPTIMAL 160-189 mg/dl HIGH >190 mg/dl VERY HIGH VLDL CHOLESTEROL 22.4 Chol HDL Ratio 5.8 4.4 - 7.1 AVERAGE RISK 3.3 - 4.4 LOW RISK 7.1 - 11.0 MODERATE RISK >11.0 HIGH RISK Performing Lab: see note ML - [facility] LB IRON Reviewed date:11/14/2023 10:39:03 PM Interpretation: Performing Lab: Notes/Report: [facility] , Iron 49.0 65.0-175.0 ug/dL Performing Lab: see note ML - [facility] LB GLYCOHEMOGLOBIN A1C Reviewed date:11/14/2023 10:39:03 PM Interpretation: Performing Lab: Notes/Report: [facility] , Glycohemoglobin A1C 5.1 4.5-6.2 % ACTION SUGGESTED > 7.0 ADA THERAPEUTIC TARGET < 7.0 ADA RECOMMENDED LIMIT 4.0 - 6.0 Estimated Average Glucose 100 Performing Lab: see note ML - [facility] LB FREE T3 Reviewed date:11/14/2023 10:39:03 PM Interpretation: Performing Lab: Notes/Report: [facility] , Free T3 3.24 2.18-3.98 pg/mL Performing Lab: see note - [facility] LB CBC AUTO DIFF Reviewed date:11/14/2023 10:39:03 PM Interpretation: Performing Lab: Notes/Report: [facility] , White Blood Count 7.0 4.0-11.0 10 3/uL Red Blood Count 5.34 4.70-6.10 10 6/uL Hemoglobin 14.9 14.0-18.0 g/dL Hematocrit 45.2 42.0-54.0 % Mean Corpuscular Volume 84.6 80.0-94.0 fL Mean Corpuscular Hemoglobin 27.9 25.9-34.0 pg Mean Corpuscular HGB Conc 33.0 29.9-35.2 g/dL Red Cell Distribution Width 13.6 11.0-15.0 % Platelet Count 262 150-450 10 3/uL Mean Platelet Volume 11.0 9.5-13.5 fL Neutrophils Percent Auto 61.0 43.0-75.0 % Lymphocytes Percent Auto 28.7 20.5-60.0 % Monocytes Percent Auto 9.3 1.7-12.0 % Eosinophils Percent Auto 0.3 0.9-7.0 % Basophils Percent Auto 0.4 0.2-2.0 % Immature Granulocytes Pct Auto 0.3 0.0-0.5 % Neutrophils Absolute Auto 4.3 1.4-6.5 10 3/uL Lymphocytes Absolute Auto 2.0 1.2-3.8 10 3/uL Monocytes Absolute Auto 0.7 0.3-0.8 10 3/uL Eosinophils Absolute Auto 0.0 0.0-0.7 10 3/uL Basophils Absolute Auto 0.0 0.0-0.1 10 3/uL Immature Granulocytes Abs Auto 0.02 0.00-0.03 10 3/uL Performing Lab: see note ML - [facility] LB CBC AUTO DIFF Reviewed date:06/20/2024 07:25:29 PM Interpretation: Performing Lab: Notes/Report: [facility] , White Blood Count 7.5 4.0-11.0 10 3/uL Red Blood Count 4.83 4.70-6.10 10 6/uL Hemoglobin 13.6 14.0-18.0 g/dL Hematocrit 40.6 42.0-54.0 % Mean Corpuscular Volume 84.1 80.0-94.0 fL Mean Corpuscular Hemoglobin 28.2 25.9-34.0 pg Mean Corpuscular HGB Conc 33.5 29.9-35.2 g/dL Red Cell Distribution Width 13.5 11.0-15.0 % Platelet Count 237 150-450 10 3/uL Mean Platelet Volume 9.9 9.5-13.5 fL Neutrophils Percent Auto 58.8 43.0-75.0 % Lymphocytes Percent Auto 29.2 20.5-60.0 % Monocytes Percent Auto 8.6 1.7-12.0 % Eosinophils Percent Auto 2.4 0.9-7.0 % Basophils Percent Auto 0.5 0.2-2.0 % Immature Granulocytes Pct Auto 0.5 0.0-0.5 % Neutrophils Absolute Auto 4.4 1.4-6.5 10 3/uL Lymphocytes Absolute Auto 2.2 1.2-3.8 10 3/uL Monocytes Absolute Auto 0.6 0.3-0.8 10 3/uL Eosinophils Absolute Auto 0.2 0.0-0.7 10 3/uL Basophils Absolute Auto 0.0 0.0-0.1 10 3/uL Immature Granulocytes Abs Auto 0.04 0.00-0.03 10 3/uL Performing Lab: see note ML - [facility] LB Urine Culture, Routine Reviewed date:02/14/2024 08:45:10 PM Interpretation: Performing Lab: Notes/Report: [facility] , Urine Culture, Routine See Below For Report Urine Culture, Routine Urine Culture, Routine No growth Urine Culture, Routine Urine Culture, Routine Performed at: [facility] Urine Culture, Routine Urine Culture, Routine [address] [place] [address] [phone] Urine Culture, Routine Urine Culture, Routine Head Waiter/Waitress Banquet: Wilber Chun PhD, Phone: [phone] Urine Culture, Routine Performing Lab: see note [facility] LB SEE REPORT - Tig Welder Id information not found for OBX-specific cattle producers legend Carbamazepine(Tegretol),S Reviewed date:11/14/2023 10:39:03 PM Interpretation: Performing Lab: Notes/Report: [facility] , Carbamazepine(Tegretol),S <0.5 4.0-12.0 ug/mL [address] [place] [address] [phone] Therapeutic 4.0 - 8.0 <2.0 indicates None Detected Performed at: [facility] Carbamazepine alone Detection Limit = 2.0 In conjunction with other antiepileptic drugs Head Waiter/Waitress Banquet: Wilber Chun PhD, Phone: [phone] Toxicity 9.0 - 12.0 Therapeutic 8.0 - 12.0 Verified by repeat analysis Performing Lab: see note [facility] INSULIN Reviewed date:11/14/2023 10:39:03 PM Interpretation: Performing Lab: Notes/Report: [facility] , Insulin 60.6 2.6-24.9 uIU/mL Head Waiter/Waitress Banquet: Wilber Chun PhD, Phone: [phone] [address] [place] [address] [phone] Performed at: [facility] Performing Lab: see note - [facility] LB Reason For Referral Diagnosis 1 Rectal bleeding (K62 .5) Referral Organization [facility] Medicine Referring Provider First Name Yaron Referring Provider Last Name Zahra Referring Provider Speciality Family Med icine Referred Provider FPG, Gastroenterolog y Referred Provider Specialty Gastroentero logy Referral Priority Routine Medications Medication SIG (Take, Route, Frequency, Duration) Notes Start Date End Date Status OXcarbazepine 300 MG 1 tablet in the am and 2 at HS Orally Twice a day for 30 days Active cloNIDine HCl 0.2 MG 1 tablet Orally Onc e a day for 30 days Active DULoxetine HCl 60 MG 2 capsules Oral estrellita ry day for 30 days Active Mounjaro 2.5 MG/0.5ML Inject 2.5mg Subcu taneous once weekly DX G47.33 for 28 days 10/09/2024 Active LORazepam 2 MG 1 tablet Orally ever y 6 hours prn for 30 days 10/05/2024 Active Abilify 2 MG 1 tablet Orally Once a day for 30 days 03/23/2024 Active buPROPion HCl ER (XL) 300 MG 1 tablet Oral Once a day for 30 days Active Social History Tobacco Use: Social History [...] in quitting? Not ready to woody t Alcohol Screen (Audit-C) Question Answer Notes Did you have a drink contain ing alcohol in the past year? Yes How often did you have 6 or more drinks on one occasion in the past year? Never (0 point) How many drinks did you have on a typical day when you were drinking in the past year? 1 or 2 drinks (0 point) How often did you have a dri nk containing alcohol in the past year? Monthly (2 points) Points 2 Interpretation Negative Problems Problem Type SNOMED Code ICD Code Onset Dates Problem Status W/U Status Risk Notes Problem Obstructive sleep apnea syndrome (disorder) (97318862) Obstructive sleep apnea (adult) (pediatric) (G47.33) Active confirmed Problem 91145701 Generalized anxiety disorder (F41.1) Active confirmed Problem Fatigue (60528004) Fatigue (R53.83) Active confirmed Problem Sleep apnea (58983866) Sleep apnea (G47.30) Active confirmed Problem Insomnia (216246062) Insomnia (G47.00) Active confirmed Problem Eczema (26165591) Eczema (L30.9) Active confirm ed Problem Hematochezia (976223253) Hematochezia (K92.1) Active confirmed Problem Hematuria (29102268) Hematuria (R31.9) Active confirmed Problem Asperger's syndrome (21312848) Aspergers' syndrome (F84.5) Active confirmed Problem Attention deficit hyperactivity disorder (485009621) ADHD (F90.9) Active confirmed Vital Signs Blood pressure diastolic 94 mm Hg 10/05/2024 Height 72 in 10/05/2024 Blood pressure systolic 152 mm Hg 10/05/2024 Weight 406.0 lbs 10/05/2024 BMI 55.06 kg/m2 10/05/2024 Procedures Procedure Date Ordered Date Performed Result Body Sit e Sleep Study: Retitration BIPAP/CPAP 11/11/2023 N/A Encounters Encounter Location Date Provider Diagnosis [facility] [address] [place] [place] [address] 02/15/2024 Yaron Hoy Rectal bleeding K62. 5 [facility] [address] [place] [address] 05/15/2024 Yaron Hoy Generalized anxiety disorder F41.1 [facility] [address] [place] [place] [address] 07/27/2024 Yaron Hoy Generalized anxiety disorder F41.1 [facility] [address] [facility] [address] 08/03/2024 Yaron Kashmiry [facility] [address] [place] [facility] [place] [address] 10/05/2024 Yaron Hoy Aspergers' syndrome F84.5 [facility] [address] [facility] [place] [address] 10/09/2024 Yaron Sweeney [facility] [address] [place] [facility] [place] [address] 10/29/2023 Yaron Hoy Generalized anxiety disorder F41.1 [facility] [address] [place] [facility] [place] [address] 11/14/2023 Yaron Kashmiry [facility] [address] [place] [facility] [place] [address] 12/30/2023 Yaron Sweeney [facility] [address] [place] [place] [address] 01/03/2024 Yaron Hoy Generalized anxiety disorder F41.1 [facility] [address] [place] [place] [address] 02/07/2024 Yaron Sweeney [facility] [address] [place] [address] 02/08/2024 Yaron Hoy Generalized anxiety disorder F41.1 [facility] [address] [place] [address] 02/07/2024 Yaron Hoy Hematuria R31.9 [address] [place] [address] 03/23/2024 Yaron Hoy Aspergers' syndrome F84.5 ; ADHD F90.9 and Fatigue R53.83 [address] [place] [address] 10/05/2024 Yaron Hoy Aspergers' syndrome F84.5 ; ADHD F90.9 ; Fatigue R53.83 ; Sleep apnea G47.30 and Hematochezia K92.1 [address] [place] [address] 11/11/2023 Yaron Hoy Fatigue R53.83 ; Aspergers' syndrome F84.5 ; ADHD F90.9 and Sleep apnea G47.30 Assessments Encounter Date Diagnosis (ICD Code) Assessment Notes Treatment Notes Treatment Clinical Notes Section Notes 10/05/2024 Aspergers' syndrome (ICD-10 - F84.5) 10/05/2024 ADHD (ICD-10 - F90.9) 10/05/2024 Fatigue (ICD-10 - R53.83) 10/05/2024 Sleep apnea (ICD-10 - G47.30) 10/05/2024 Hematochezia (ICD-10 - K92.1) 10/29/2023 Generalized anxiety disorder (ICD-10 - F41.1) 01/03/2024 Generalized anxiety disorder (ICD-10 - F41.1) 02/08/2024 Generalized anxiety disorder (ICD-10 - F41.1) 02/15/2024 Rectal bleeding (ICD-10 - K62.5) 05/15/2024 Generalized anxiety disorder (ICD-10 - F41.1) 07/27/2024 Generalized anxiety disorder (ICD-10 - F41.1) 10/05/2024 Aspergers' syndrome (ICD-10 - F84.5) 11/11/2023 Fatigue (ICD-10 - R53.83) working [employer] doese ruthieylar 11/11/2023 Aspergers' syndrome (ICD-10 - F84.5) 02/07/2024 Hematuria (ICD-10 - R31.9) 03/23/2024 Aspergers' syndrome (ICD-10 - F84.5) 03/23/2024 ADHD (ICD-10 - F90.9) 03/23/2024 Fatigue (ICD-10 - R53.83) 11/11/2023 ADHD (ICD-10 - F90.9) 11/11/2023 Sleep apnea (ICD-10 - G47.30) Plan Of Treatment Pending Test Test Name Order Date CMP (COMPLETE METABOLIC PANEL) 4 HEMOGLOBIN A1C (GLYCO) 11/11/2023 HEMOGLOBIN A1C (GLYCO) 10/05/2024 INSULIN, TOTAL 10/05/2024 IRON, TOTAL 11/11/2023 LIPID PANEL (CHOL/TRIG/HDL/LDL) 11/11/19 24 LIPID PANEL (CHOL/TRIG/HDL/LDL) 10/06/19 25 CBC WITH DIFF 11/11/2023 Urinalysis Microscopic 02/07/2024 Insulin Level 11/11/2023 Sleep Study: Retitration BIPAP/CPAP 10/21 CULTURE URINE 02/07/2024 TEGRETOL 11/11/2023 THYROID PANEL (T4/TSH/FREE T3) 4 THYROID PANEL (T4/TSH/FREE T3) 5 Oxcarbazepine (Trileptal),S 10/05/2024 CMP (COMP MET SUBRAMANIAN) w/eGFR CKD-EPI 2024 CBC WITH DIFF 10/05/2024 Insurance Providers Payer Name Payer Address Payer Phone Subscriber Number Group Number Insured Name Patient Relationship to Insured Coverage Start Date Coverage End Date [employer] [place] [employer] [address] [address] [place] [phone] [id number] Jovi Ramos Self - patient is the insured Medical (General) History Medical History History ICD Code Bladder spasms N32.89 Pilonidal cyst L05.91 Pityriasis L21.0 Insomnia G47.00 Hematochezia K92.1 Eczema L30.9 Asperger's disorder F84.5 ADHD (attention deficit hyperactivity di sorder) F90.9 Surgical History Surgery Date(Month/Year) Septoplasty, T&A 10/2016 Colonoscopy 2024
--- OUTSIDE RECORDS SUMMARY | 2024-10-27 08:36 | XMS_ITS | Clinical Summary ---
Author Organization [facility] Address [address] [place] [address] Care Team Providers Care Thermometer Maker Name Role Phone Nato Sweeney MD Primary Care Provider [phone] Allergies No known active allergies Medications LORazepam (Ativan) 2 mg tablet Take 1 tablet by mouth every 6 (six) hours. 5 Active cloNIDine (Catapres) 0.2 mg tablet Take 0.2 mg by mouth at bedtime. Active buPROPion XL (Wellbutrin XL) 300 mg 24 hr tablet Take 300 mg by mouth at bedtime. Active OXcarbazepine (Trileptal) 300 mg tablet Take 300 mg by mouth in the morning and at bedtime. Active ARIPiprazole (Abilify) 2 mg tablet Take 2 mg by mouth at bedtime. 5 Active methylcellulose , laxative, (CitruceL Sugar Free) powderIndicatio ns:Hemorrhage of rectum and anus Mix 1 tablespoon in 8 oz (240 mL) of cold water. Take by mouth once daily. Increase frequency as needed up to 3 times daily 479 g 3 5 Active Social History Tobacco Use Types Packs/Day Years Used Date Smoking Tobacco: Every Day Cigarettes Started: 2017 Smokeless Tobacco: Never Tobacco Cessation:Ready to Q uit: Not Asked; Counseling Given: Not Answered Alcohol Use Standard Drinks/Week Comments Not Currently 0 (1 standard drink = 0.6 oz pur e alcohol) Sex and Gender Information Value Date Recorded Sex Assigned at Male 07/04/2024 5:43 PM EDT Legal Sex Male 11:34 PM EDT Gender Identity Male 07/04/2024 5:43 PM EDT Sexual Orientation Not on file Last Filed Vital Signs Vital Sign Reading Time Taken Comments Blood Pressure 113/68 07/13/2024 1:49 PM EDT Pulse 85 07/13/2024 1:49 PM EDT Temperature 36.3 C (97.3 F) 07/13/2024 1:49 PM EDT Respiratory Rate 12 07/13/2024 1:49 PM EDT Oxygen Saturation 95% 07/13/2024 1:49 PM EDT Inhaled Oxygen Concentration - - Weight 179 kg (393 lb 15.4 oz) 07/13/2024 11:19 AM EDT Height 182.9 cm (6') 07/13/2024 11:19 AM EDT Body Mass Index 53.43 07/13/2024 11:19 AM EDT Plan of Treatment Health Maintenance Due Date Last Done Comments Depression Screening 2011 Varicella Vaccines (1 of 2 - 13+ 2-dose series) 11/14/2012 HPV Vaccines (1 - Male 3-dos e series) 11/14/2014 Pneumococcal Vaccine: Pediatrics (0 to 5 Years) and At-Risk Patients (6 to 64 Years) (1 of 2 - PCV) 11/14/2018 Adult Tetanus 11/14/2021 COVID-19 Vaccine ( - 2023-2 5 season) 2023 Influenza Vaccine (#1) 2024 2, 01/29/2021 Zoster Vaccines (1 of 2) 11/14/2049 HIB Vaccines Aged Out No longer eligi ble based on patient's age to complete this topic IPV Vaccines Aged Out No longer eligi ble based on patient's age to complete this topic Meningococcal B Vaccine Aged Out No l onger eligible based on patient's age to complete this topic Meningococcal Vaccine Aged Out No barrie jaswinder eligible based on patient's age to complete this topic Rotavirus Vaccines Aged Out No longer eligible based on patient's age to complete this topic Insurance Care Teams Thermometer Maker Relationship Specialty Start Date End Date Nato Sweeney MD [address] [facility] [place] [address] PCP - General Family Medicine 07/13/24
[2024-10-27 09:00] LABS: Hematocrit 44.9 % (42.0-54.0); Hemoglobin 14.9 g/dL (14.0-18.0); Immature Granulocytes Abs Auto 0.05 10^3/uL (0.00-0.03); Immature Granulocytes Pct Auto 0.6 % (0.0-0.5); Lymphocytes Absolute Auto 2.7 10^3/uL (1.2-3.8); Mean Corpuscular HGB Conc 33.2 g/dL (29.9-35.2); Mean Corpuscular Hemoglobin 27.6 pg (25.9-34.0); Mean Corpuscular Volume 83.1 fL (80.0-94.0); Platelet Count 300 10^3/uL (150-450); Red Blood Count 5.40 10^6/uL (4.70-6.10); White Blood Count 8.1 10^3/uL (4.0-11.0)
[2024-10-27 09:31] LABS: Alanine Aminotransferase 44 U/L (16-63); Albumin Globulin Ratio 0.9; Albumin Level 3.8 g/dL (3.4-5.0); Alkaline Phosphatase 122 U/L (46-116); Anion Gap 13.9; Aspartate Amino Transferase 23 U/L (15-37); Blood Urea Nitrogen 13.0 mg/dL (7.0-18.0); Calcium 9.3 mg/dL (8.5-10.1); Carbon Dioxide 27.1 mmol/L (21.0-32.0); Chloride 103 mmol/L (98-107); Cholesterol 191 mg/dL (<=200); Estimated GFR (African America >60 (>=60 mL/min/1.73m^2); Estimated GFR (Non-African Ame >60 (>=60 mL/min/1.73m^2); Free T3 3.49 pg/mL (2.18-3.98); Globulin 4.0 g/dL; Glucose 103 mg/dL (74-106); HDL Cholesterol 33 mg/dL (40-60); Potassium 4.0 mmol/L (3.5-5.1); Sodium 140 mmol/L (136-145); Thyroid Stimulating Hormone 1.379 uIU/mL (0.358-3.740); Total Protein 7.8 g/dL (6.4-8.2); Triglycerides 121 mg/dL (<=150); VLDL CHOLESTEROL 24.2 mg/dL
[2024-10-31 17:08] LABS: Oxcarbazepine (Trileptal),S 6 ug/mL (10-35)
== END 2024-10-27 08:32 | disposition home or self-care (01) ==
PROVIDERS: PCP Family Medicine; Visit Provider Family Medicine
DX: F84.5 Asperger's syndrome (principal); F90.9 Attention-deficit hyperactivity disorder, unspecified type; R53.83 Other fatigue; G47.30 Sleep apnea, unspecified; K92.1 Melena; R73.09 Other abnormal glucose
CPT/HCPCS: 36415; 80053; 80061; 80183; 83036; 83525; 84436; 84443; 84481; 85025

== ENCOUNTER 2025-02-19 09:26 | Outpatient (OUT) | payer MEDICAID, SELFPAY ==
--- OUTSIDE RECORDS SUMMARY | 2025-02-19 09:31 | XMS_ITS | Clinical Summary ---
Author Organization [employer] [facility] tem Address [id number] [address] [place] [address] Care Team Providers Care Assistant General Manager Name Role Phone Nato Sweeney MD Primary Care Provider [phone] Allergies No known active allergies Medications MedicationSigDispense QuantityRefillsLast FilledStart DateEnd DateStatus buPROPion XL (WELLBUTRIN XL) 300 mg 24 hr tablet Take 1 tablet (300 mg total) by mouth.04/03/2016Active citalopram (CeleXA) 40 mg tablet Take 1 tablet (40 mg total) by mouth.12/31/2015Active cloNIDine (CATAPRES) 0.2 mg tablet Take 0.2 mg by mouth.06/29/2016Active LORazepam (ATIVAN) 1 mg tablet Take 1 mg by mouth every 6 (six) hours.05/26/2016Active OXcarbazepine (TRILEPTAL) 300 mg tablet Take 1 tablet (300 mg total) by mouth.11/21/2015Active ondansetron (ZOFRAN) 4 mg/5 mL solution Take 5 mL (4 mg total) by mouth 3 (three) times a day as needed for nausea or vomiting. 50 mL Active buPROPion XL (WELLBUTRIN XL) 150 mg 24 hr tablet Take 1 tablet (150 mg total) by mouth.11/25/2016Active ondansetron ODT (ZOFRAN-ODT) 4 mg disintegrating tablet Dissolve 1 tablet (4 mg total) on tongue every 8 (eight) hours as needed for nausea for up to 10 doses. 10 tablet 01/08/2019Active DULoxetine (CYMBALTA) 30 mg capsule Take 1 capsule (30 mg total) by mouth in the morning.Active Active Problems ProblemNoted DateDiagnosed DateS/P aduvmcrvytvfq98/14/2017S/P nasal septoplasty 12/03/2016Respiratory athraanonvltt60/24/2017Tonsillar kvtiihgtoao85/02/2017 Deviated xsrhwc9009/02/2016Obstructive sleep apnea09/02/2016Chronic sinusitis 09/02/2016Bipolar 1 /17/2017Autistic qtgvxfxe74/17/2017ADHD (attention deficit hyperactivity disorder)08/05/2016 Social History Tobacco UseTypesPacks/DayYears UsedDateSmoking Tobacco: FormerCigarettes Smokeless Tobacco: Never Tobacco Cessation:Ready to Q uit: No; Counseling Given: Yes Alcohol UseStandard Drinks/WeekCommentsNo0 (1 standard drink = 0.6 oz pure alcohol)ChildcareAnswerDate QujvfdjuSsimsenovNzcamro36/12/2019EmploymentAnswer Date NfzqgpsdZxzexmvnxoQhpdxgr43/12/2019Hunger ScreeningAnswerDate Recorded Within the past 12 months we worried whether our food would run out before we got money to buy more.Never True08/15/2023Within the past 12 months the food we bought just didn't last and we didn't have money to get more.Never True 4Purpose - LifeAnswerDate RecordedPurpose and direction in lifeUnknown 05/02/2020ex and Gender InformationValueDate RecordedSex Assigned at BirthNot on fileLegal QlnBouu0407/23/2016 9:10 AM EDTGender IdentityNot on fileSexual OrientationNot on file Last Filed Vital Signs Vital SignReadingTime TakenCommentsBlood Sosemxsj420/77008/15/2023 8:00 PM EDT Hgjpz72219/26/2024 8:00 PM ONZFmrgorwfqgf56.7 ??C (98 ??F)08/15/2023 7:31 PM EDT Respiratory Cwpl792208/15/2023 8:00 PM EDTOxygen Zxfetysppp21%08/15/2023 8:00 PM EDTInhaled Oxygen Concentration--Ujnhfa358.9 kg (379 lb)08/15/2023 7:31 PM EDT Qcjaoe702.9 cm (6')08/15/2023 7:31 PM EDTBody Mass Index51. 7:31 PM EDT Plan of Treatment Health MaintenanceDue DateLast DoneCommentsDepression Ewepkfdce61/26/2012 DTaP,Tdap and Td Vaccines (1 - Tdap)11/14/2018Adult BMI Vfuboehdr97/26/2025 08/15/2023Tobacco Jgpergyxh99Influenza Gbdjsyb6511/20/2024 01/28/2022, 01/29/2021 Medical Devices Not on file Insurance Advance Directives * Full Code (Latest Code Status on File) Date ActivatedDate InactivatedComments11/12/2016 3:42 PM11/13/2016 3:32 PM Care Teams Team MemberRelationshipSpecialtyStart DateEnd Date Nato Sweeney MD [facility]08/15/23
--- OUTSIDE RECORDS SUMMARY | 2025-02-19 09:31 | XMS_ITS | Clinical Summary ---
Author Organization [facility] Address [address] [place] [id number] Care Team Providers Care Harp Action Assembler Name Role Phone Nato Sweeney MD Primary Care Provider [phone] Allergies No known active allergies Medications * This document contains information received from the source organization and may not represent a complete record from that organization. MedicationSigDispense QuantityRefillsLast FilledStart DateEnd DateStatus cloNIDine HCl (CATAPRES) 0.2 mg tablet Take 1 tablet by mouth daily at bedtime. 30 tablet Active buPROPion XL (WELLBUTRIN XL) 300 mg 24 hr tablet Take 1 tablet by mouth once daily. 30 tablet Active citalopram (CELEXA) 40 mg tablet Take 1 tablet by mouth once daily. 30 tablet Active buPROPion XL (WELLBUTRIN XL) 150 mg 24 hr tablet Take 1 tablet by mouth once daily. 30 tablet Active OXcarbazepine (TRILEPTAL) 300 mg tablet Take 1 tablet by mouth twice daily. 60 tablet Active Active Problems ProblemNoted DateDiagnosed DateAttention deficit hyperactivity disorder (ADHD), predominantly inattentive type03/02/2016Intermittent explosive disorder 04/08/2015Generalized anxiety xaukkwci22/18/2016 Social History Tobacco UseTypesPacks/DayYears UsedDateSmoking Tobacco: Never AssessedSex and Gender InformationValueDate RecordedSex Assigned at BirthNot on fileLegal Sex Male02/01/2015 11:28 AM ESTGender IdentityNot on fileSexual OrientationNot on file Last Filed Vital Signs Vital SignReadingTime TakenCommentsBlood Kmuudaql637/8209 11:07 AM EDT Grszs9659 11:07 AM EDTTemperature--Respiratory Auye859105/03/2015 10:18 AM ESTOxygen Saturation--Inhaled Oxygen Concentration--Cylivt038.5 kg (320 lb 12.8 oz)11/25/2016 11:07 AM EDTHeight--Body Mass Index-- Plan of Treatment Health MaintenanceDue DateLast DoneCommentsPeds To Adult Transition Initial Kcfzjpszli99/26/2012Peds To Adult Transition Annual Nqkvrafiwc08/26/2014HPV Vaccine (1 - Male 3-dose series)11/14/2014nxiety Ycviefmso74/26/2018Depression Iryzdxhbu96/26/2018HIV Aveadrzdd36/26/2018Hepatitis C Kbwhrihrd48/26/2018 DTaP,Tdap,Td Vaccine (1 - Tdap)11/14/2018Hepatitis B Vaccine (1 of 3 - 19+ 3- dose series)11/14/2018Covid-19 Vaccine (1 - 2024- season)2024Influenza Vaccine (#1)2024 Care Teams Team MemberRelationshipSpecialtyStart DateEnd Nato Sweeney MD PCP - GeneralFamily Axgcijgz14/13/15
--- OUTSIDE RECORDS SUMMARY | 2025-02-19 09:31 | XMS_ITS | Clinical Summary ---
Author Organization [facility] Address [address] [place] [address] Care Team Providers Care Collect On Delivery Clerk Name Role Phone Nato Sweeney MD Primary Care Provider [phone] Allergies No known active allergies Medications MedicationSigDispense QuantityRefillsLast FilledStart DateEnd DateStatus LORazepam (Ativan) 2 mg tablet Take 1 tablet by mouth every 6 (six) hours.5Active cloNIDine (Catapres) 0.2 mg tablet Take 0.2 mg by mouth at bedtime.Active buPROPion XL (Wellbutrin XL) 300 mg 24 hr tablet Take 300 mg by mouth at bedtime.Active OXcarbazepine (Trileptal) 300 mg tablet Take 300 mg by mouth in the morning and at bedtime.Active ARIPiprazole (Abilify) 2 mg tablet Take 2 mg by mouth at bedtime.5Active methylcellulose, laxative, (CitruceL Sugar Free) powder Indications:Hemorrhage of rectum and anusMix 1 tablespoon in 8 oz (240 mL) of cold water. Take by mouth once daily. Increase frequency as needed up to 3 times daily 479 g 5Active Social History Tobacco UseTypesPacks/DayYears UsedDateSmoking Tobacco: Every DayCigarettes Started: 2017Smokeless Tobacco: Never Tobacco Cessation:Ready to Q uit: Not Asked; Counseling Given: Not Answered Alcohol UseStandard Drinks/WeekCommentsNot Currently0 (1 standard drink = 0.6 oz pure alcohol)Sex and Gender InformationValueDate RecordedSex Assigned at Male07/04/2024 5:43 PM EDTLegal AcfIckz20/ 11:34 PM EDTGender Identity Male07/04/2024 5:43 PM EDTSexual OrientationNot on file Last Filed Vital Signs Vital SignReadingTime TakenCommentsBlood Ofldsqtr687/68007/13/2024 1:49 PM EDT Zuzck682407/13/2024 1:49 PM EFNIjhhktsipwa61.3 ??C (97.3 ??F)07/13/2024 1:49 PM EDTRespiratory Fasc605807/13/2024 1:49 PM EDTOxygen Qqpflzullc35%07/13/2024 1:49 PM EDTInhaled Oxygen Concentration--Fwwxkx035 kg (393 lb 15.4 oz)07/13/2024 11:19 AM ZGSZufhce619.9 cm (6')07/13/2024 11:19 AM EDTBody Mass Index53.43 07/13/2024 11:19 AM EDT Plan of Treatment Health MaintenanceDue DateLast DoneCommentsDepression Knoormcte46/26/2012 Varicella Vaccines (1 of 2 - 13+ 2-dose series)11/14/2012HPV Vaccines (1 - Male 3-dose series)11/14/2014Pneumococcal Vaccine: Pediatrics (0 to 5 Years) and At- Risk Patients (6 to 64 Years) (1 of 2 - PCV)11/14/2018Adult Wwthpne9511/14/2021 COVID-19 Vaccine (1 - season)2024Influenza Vaccine (#1)2024 01/28/2022, 01/29/2021Zoster Vaccines (1 of 2)11/14/2049HIB VaccinesAged OutNo longer eligible based on patient's age to complete this topicIPV VaccinesAged OutNo longer eligible based on patient's age to complete this topicMeningococcal B VaccineAged OutNo longer eligible based on patient's age to complete this topicMeningococcal VaccineAged OutNo longer eligible based on patient's age to complete this topicRotavirus VaccinesAged OutNo longer eligible based on patient's age to complete this topic Insurance Care Teams Team MemberRelationshipSpecialtyStart DateEnd Nato Sweeney MD [address] [facility] [address] [address] PCP - GeneralFamily Medicine07/13/24
--- OUTSIDE RECORDS SUMMARY | 2025-02-19 09:41 | XMS_ITS | CCD ---
Author Organization [facility] Care Team Providers Care Hedis Nurse Name Role Phone KAYLI ., DR GRANDA [...] NON STAFF Primary Care Unavailable JESUS ALBERTO SWEENEY Primary Care Unavailable HAN PRITCHARD Attending Unavailable HAN PRITCHARD Referring Unavailable JESUS ALBERTO SWEENEY Primary Care Unavailable SUSAN BRASWELL Admitting Unavailable SUSAN BRASWELL Attending Unavailable BERNARDO NEIL Referring Unavailable Medications Current Medications MedicationDrug Class(es)DatesSig (Normalized)Sig (Original)ARIPiprazole 2 mg oral tablet (2 sources)Atypical AntipsychoticStart: 58-38-0059Cfdxihwyyeiu 2 mg tablet Active MG PO April 11, 2024 1:00am24 hr buPROPion hydrochloride 300 mg extended release oral tablet (2 sources)AminoketoneStart: 65-62-9557mdtc 1 tablet by mouth every twenty-four hoursBupropion Hcl 300 mg tablet extended release 24 hr Active MG PO April 11, 2024 1:00amcloNIDine hydrochloride 0.2 mg oral tablet (2 sources)Central alpha-2 Adrenergic AgonistStart: 67-74-4682qntl 5 tablets by mouth once dailyClonidine Hcl 0.2 mg tablet Active MG PO Daily April 11, 2024 1:00amDULoxetine 60 mg delayed release oral capsule (2 sources)Serotonin and Norepinephrine Reuptake InhibitorStart: 04-11-2024 Duloxetine 60 mg capsule,delayed release(DR/EC) Active MG PO April 11, 2024 1:00amLORazepam 2 mg oral tablet (2 sources)BenzodiazepineStart: 94-46-0796Dapcxsmta 2 mg tablet Active MG PO .prn as needed April 11, 2024 1:00amOXcarbazepine 300 mg oral tablet (2 sources)Anti-epileptic AgentStart: 57-87-4812kipj 1 mg by mouth once daily Oxcarbazepine 300 mg tablet Active MG PO Daily April 11, 2024 1:00am Problems Active Problems Problem ClassificationProblemDateDocumented DateEpisodic/ChronicGastrointestinal hemorrhage (7 sources)Rectal hemorrhage; Translations: [Hemorrhage of anus and rectum] Onset: 552059-83-8641PnnqatkdBgsstzrwhkq deficiencies (1 source)Vitamin D deficiency, unspecified; Translations: [VITAMIN D DEFICIENCY UNSPECIFIED]Onset: 55-94-6792KtewmpcCaimz connective tissue disease (1 source)Hand painOnset: 50-93-3294McxmhrhpAzcjbmosqdw injury; contusion (1 source)Contusion of right hand, initial encounter; Translations: [Contusion of right hand, initial encounter]Onset: 22-06-9610EtpqrohrWfvrampxwegw (1 source)Hand InjuryOnset: 08-15-2023 Past or Other Problems Problem ClassificationProblemDateDocumented DateEpisodic/ChronicOther aftercare (5 sources)Other middle or intermediate school principal (current) drug therapy; Translations: [OTH THREE KNIFE TRIMMER CURRENT DRUG THERAPY]Onset: 44-25-6214Ocmkdcdo Results Test NameValueInterpretationReference RangeFacilityHISTOLOGY - TISSUE EXAMon 34-55-0969VWW AP CASE REPORTNormalUniversity of Corpus Christi Medical Center Bay AreaComment on above:Result Comment: Surgical Pathology Case: [id number] Authorizing Provider: Susan Braswell MD Collected: 07/13/2024 1259 Ordering Location: [facility] Received: 07/13/2024 [facility] Pathologist: Jagruti Camarena MD Specimen: Large Intestine, random colon Bx to r/o microscopic collittisPerformed By: #### [id number] #### [facility] ([facility]) [address] , [place] [address]QGT AP CLINICAL INFORMATIONOrder DiagnosesNormalUniversst. francis hospital of [facility] Center Bay AreaComascension genesys hospital on above:Result Comment: K62.5 - Hemorrhage of rectum and anus [ICD-10-CM]Performed By: #### [id number] #### [facility] ([facility]) [address] , [place] [address]MPB AP GROSS DESCRIPTIONNormalUnilamb healthcare center of Corp[facility] Medical Center Bay AreaComascension genesys hospital on above:Result Comment: A. Large Intestine. The specimen is received in formalin labeled Christopher Tea and random colon bx to r/o microscopic colitis. It consists of 10 bits of gallagher-pink mucosal tissue ranging from 0.2 cm to 0.3 cm in greatest dimension. The specimen is submitted in toto in 1 cassette. Lilly Redmond, Pathologists' Iron Pellet Tester student Nkechi Fink, Pathologists' Iron Pellet Tester studentPerformed By: #### [id number] #### [facility] ([facility]) [address] [place], [place] [address]CXZ AP MICROSCOPIC DESCRIPTIONMicroscopic examination performed. [facility] CampusComascension genesys hospital on above:Performed By: #### [id number] #### [facility] ([facility]) [address] [place], [place] [address]AGO AP REPORT FINAL DIAGNOSIS NARRATIVENoCentral Carolina HospitalniGrant HospitalComascension genesys hospital on above:Result Comment: A. Colon, biopsy: - Colonic mucosa with prominent lymphoid aggregates, otherwise unremarkable. - No evidence of microscopic colitis. Performed By: #### [id number] #### [facility] ([facility]) [address] [place], [place] [address]UUWUJPIRru 10-42-8693GTSQZCZLSddykrka IV went bad, anasteshia started a new access area for fluids.NormalUnCoshocton Regional Medical Center POCT GLUCOSE METER UNSOLICITED RESULTSon 80-99-0443Uiicbnv [Mass/Vol]99 mg/dL Nnmslh98-560TtjxfrrdmzCoshocton Regional Medical CenterComment on above:Order Comment: Waived Testing in the ED is performed under the ED CLIA certificate #[id number]. Result Comment: nlrjce8Wcmyddknt By: #### [id number] #### [facility] ([facility]) [address] [place], [place] [address]Ishf for Procedureon 40-16-7541Whfa for [id number] RachelTerri 2000 M Date Provider Department Center 07/13/2024 Delilah-SUSAN BRASWELL [facility] No family history on fileNormalUniGrant HospitalOrders Onlyon 80-45-6236Xrfqkw [id number] Terri Ramos 2000 M Date Provider Department Center 06/22/2024 Tanner-HERMILA ZHANG [facility] No family history on [facility]XR HAND RT MIN 3 VWSon 31-07-4961GJ HAND RT MIN 3 VWSXR HAND RT MIN 3 VWS XR HAND RT MIN 3 VWS HISTORY: Trauma, punched wall COMPARISON: None FINDINGS: PA, oblique and lateral views of the right hand demonstrate no acute fracture or focal destructive bony lesion. No gross dislocations or subluxations. X-ray density bony structures grossly subjectively normal. IMPRESSION: * No acute fracture visualized Finalized by Ana Laura Sullivan MD on 08/15/2023 8:32 PMNormalProMedica Naval Hospital OaklandOXCARBAZEPINE / TRILEPTALon 98-08-2572Ndofsopaosayt1 ug/mLCritically low 10-35The [facility] HospitalComment on above:Result Comment: This test was developed and its performance characteristics determined by [facility]. It has not been cleared or approved by the Food and Drug Administration. Detection Limit = 1Performed By: #### OXCARB #### [facility] [address] [place] [address] Dr. Gwen ReedINSULINon 95-76-7433Qwpdiai21.2 uIU/mLCritically high2.6-24.9The [facility] HospitalComment on above:Performed By: #### INSULIN #### [facility] [address] [address] [address] Gwen BraxtonC AUTO DIFFon 07-73-3836XELQ #0.0 103/ulNormal0.0-0.1The [facility] HospitalComment on above:Performed By: #### CBC #### [facility] [address] [address] [address] Gwen ReedBasophils/100 WBC (Bld)0.4 %Normal0.2-2.0The [facility] Comment on above:Performed By: #### CBC #### [facility] [address] [place] [address] Dr. Helm ChangEO #0.1 103/ulNormal0.0-0.7The [facility] HospitalComment on above: Performed By: #### CBC #### [facility] [address] [address] [address] Gwen Fountainosinophils/100 WBC (Bld)0.6 %Critically low0.9-7.0The [facility] on above:Performed By: #### CBC #### [facility] [address] [place] [address] Dr. Gwen Fountainrythrocyte distribution width (RBC) [Ratio]13.3 %Dcvftr38.0-15.0 The [facility] HospitalComment on above:Performed By: #### CBC #### [facility] [address] [place] [address] Dr. Gwen ReedHematocrit (Bld) [Volume fraction]42.6 %Xbgcpz12.0-54.0The [facility]itus Medical Centerment on above:Performed By: #### CBC #### [facility] [address] [place] [address] Dr. Gwen ReedHemoglobin (Bld) [Mass/Vol]14.2 g/rSUqwjoc07.0-18.0The [facility] Medical Centerment on above:Performed By: #### CBC #### [facility] [address] [address] [address] Gwen Jaegre #0.04 10e3/ulCritically high0.00-0.03The [facility] on above:Performed By: #### CBC #### [facility] [address] [address] [address] Gwen Jaeger %0.4 %Normal0.0-0.5The [facility] HospitalComment on above: Performed By: #### CBC #### [facility] [address] [address] [address] Gwen Lieberman #2.6 103/ulNormal1.2-3.8The [facility] Medical Centerment on above:Performed By: #### CBC #### [facility] [address] [place] [address] Dr. Gwen Bankshocytes/100 WBC (Bld)29.4 %Caowbl81.5-60.0The [facility] Medical Centerment on above:Performed By: #### CBC #### [facility] [address] [address] [address] Gwen MembrenoUAL DIFF REQNONormalThe [facility] Medical Centerment on above: Performed By: #### CBC #### [facility] [address] [address] [address] Gwen Emery (RBC) [Entitic mass]27.5 xbMfujwa12.9-34.0The [facility] HospitalComment on above:Performed By: #### CBC #### [facility] [address] [place] [address] Dr. Gwen Emery (RBC) [Mass/Vol]33.3 g/wYKtlotn99.9-35.2The [facility] Medical Centerment on above:Performed By: #### CBC #### [facility] [address] [place] [address] Dr. Gwen Emery (RBC) [Entitic vol]82.6 eCLujhpp52.0-94.0The Abelardo HospitalComment on above:Performed By: #### CBC #### [facility] [address] [address] [address] Gwen Turpin #0.5 103/ulNormal0.3-0.8The [facility] HospitalComment on above:Performed By: #### CBC #### [facility] [address] [address] [address] Gwen Donocytes/100 WBC (Bld)5.2 %Normal1.7-12.0The [facility] Comment on above:Performed By: #### CBC #### [facility] [address] [place] [address] Dr. Gwen Buck #5.7 103/ulNormal1.4-6.5The [facility] HospitalComment on above:Performed By: #### CBC #### [facility] [address] [place] [address] Dr. Gwen Beckhamutrophils/100 WBC (Bld)64.0 %Mlclrf76.0-75.0The [facility] HospitalComment on above:Performed By: #### CBC #### [facility] [address] [place] [address] Dr. Gwen Shields mean volume (Bld) [Entitic vol]9.7 fLNormal9.5-13.5The [facility] HospitalComment on above:Performed By: #### CBC #### [facility] [address] [place] [address] Dr. Gwen ReedPLT322 103/ktQhwsxk571-844Spi [facility] HospitalComment on above: Performed By: #### CBC #### [facility] [address] [place] [address] Dr. Gwen ReedRBC5.16 106/ulNormal4.70-6.10The [facility] HospitalComment on above:Performed By: #### CBC #### [facility] [address] [place] [address] Dr. Gwen ReedWBC9.0 103/ulNormal4.0-11.0The [facility] on above: Performed By: #### CBC #### [facility] [address] [address] [address] Gwen Martinez THYROXINE INDEX T7on 65-68-3732MRU8.20Pllbtd0.30-4.50The [facility] on above:Performed By: #### B12FOL, VITAD, IRON #### [facility] [address] [address] [address] Gwen ReedT3U32.0 %Critically low33.0-40.0The [facility] on above:Performed By: #### B12FOL, VITAD, IRON #### [facility] [address] [address] [address] Gwen ReedT4 [Mass/Vol]6.90 ug/dLNormal4.50-12.10The [facility] Comment on above:Performed By: #### B12FOL, VITAD, IRON #### [facility] [address] [address] [address] Gwen ReedGLYCOHEMOGLOBIN A1Con 51-31-6608PXV RECOMMENDATIONSEE BELOWNormal The [facility] HospitalComascension genesys hospital on above:Result Comment: ADA RECOMMENDED LIMIT 4.0 - 6.0 ADA THERAPEUTIC TARGET < 7.0 ACTION SUGGESTED > 7.0Performed By: #### A1C #### [facility] [address] [place] [address] Dr. Gwen ReedGlucose [Mass/Vol]105 mg/dLNormalThe [facility] on above:Performed By: #### A1C #### [facility] [address] [place] [address] Dr. Gwen ReedHbA1c (Bld) [Mass fraction]5.3 %Normal4.5-6.2The [facility] on above:Performed By: #### A1C #### [facility] [address] [place] [address] Dr. Gwen Ortiz 78-85-9917Jhaf [Mass/Vol]52.0 ug/dLCritically low 65.0-175.0The [facility] HospitalComment on above:Performed By: #### B12FOL, VITAD, IRON #### [facility] [address] [address] [address] Gwen DelgadoID PROFILEon 69-49-0167NNGD-HDL RATIO NORMSEE [facility] HospitalComment on above:Result Comment: 3.3 - 4.4 LOW RISK 4.4 - 7.1 AVERAGE RISK 7.1 - 11.0 MODERATE RISK >11.0 HIGH RISKPerformed By: #### B12FOL, VITAD, IRON #### [facility] [address] [place] [address] Dr. Gwen Aliciaesterol [Mass/Vol]181 mg/dLNormal<=200[facility] Comment on above:Performed By: #### B12FOL, VITAD, IRON #### [facility] [address] [place] [address] Dr. Gwen Aliciaesterol in HDL [Mass/Vol]29 mg/dLCritically jxt80-27XkwSelect Medical Specialty Hospital - Columbusment on above:Performed By: #### B12FOL, VITAD, IRON #### [facility] [address] [place] [address] Dr. Gwen Aliciaesterol in LDL [Mass/Vol]136.8 mg/dLMadison Health on above:Performed By: #### B12FOL, VITAD, IRON #### [facility] [address] [place] [address] Dr. Gwen Yancey.total/Cholesterol in HDL [Mass ratio]6.2 {ratio} NormalSelect Medical Specialty [facility] on above:Performed By: #### B12FOL, VITAD, IRON #### [facility] [address] [place] [address] Dr. Gwen Salcedo NORMAL> or = 60 mg/dl - LOW CARDIOVASCULAR RISK <40 mg/dl - HIGH CARDIOVASCULAR RISKAvita Health System Galion HospitalComment on above:Performed By: #### B12FOL, VITAD, IRON #### [facility] [address] [place] [address] Dr. Gwen Alford CALC NORMALSEE BELOWNoMansfield HospitalComment on above:Result Comment: <100 mg/dl OPTIMAL 100 - 129 mg/dl NEAR OR ABOVE OPTIMAL 130 - 159 mg/dl BORDERLINE HIGH 160 - 189 mg/dl HIGH >190 mg/dl VERY HIGH Performed By: #### B12FOL, VITAD, IRON #### [facility] [address] [place] [address] Dr. Gwen ReedTriglyceride [Mass/Vol]76 mg/dLNormal<=150The [facility] Comment on above:Performed By: #### B12FOL, VITAD, IRON #### [facility] [address] [place] [address] Dr. Gwen ReedVLDL CALC15.2 mg/dLNoMansfield HospitalComment on above: Performed By: #### B12FOL, VITAD, IRON #### [facility] [address] [place] [address] Dr. Gwen ReedPROF 14(COMP METB)on 43-97-2618Mdlrjby [Mass/Vol]3.5 g/dLNormal 3.4-5.0Select [facility] Special[facility] Hospital - Columbusment on above:Performed By: #### TSH, CMP, T7, LIPID, URIC #### [facility] [address] [place] [address] Dr. Gwen ReedAlbumin/Globulin [Mass ratio]0.8 {ratio}NormalThe [facility] HospitalComment on above:Performed By: #### TSH, CMP, T7, LIPID, URIC #### [facility] [address] [place] [address] Dr. Gwen Huang [Catalytic activity/Vol]139 U/LCritically wcjo92-764Ygx [facility] HospitalComment on above:Performed By: #### TSH, CMP, T7, LIPID, URIC #### [facility] [address] [place] [address] Dr. Gwen Maldonado [Catalytic activity/Vol]24 U/HNigpnb12-33Ipz [facility] HospitalComment on above:Performed By: #### TSH, CMP, T7, LIPID, URIC #### [facility] [address] [address] [address] Gwen Villegas gap [Moles/Vol]13.9 mmol/LNormalThe [facility] Comment on above:Performed By: #### TSH, CMP, T7, LIPID, URIC #### [facility] [address] [address] [address] Gwen ReedAST [Catalytic activity/Vol]18 U/MVubmqg34-85Gfp [facility] HospitalComment on above:Performed By: #### TSH, CMP, T7, LIPID, URIC #### [facility] [address] [place] [address] Dr. Gwen ReedBilirubin [Mass/Vol]0.2 mg/dLNormal0.2-1.0[facility] Comment on above:Performed By: #### TSH, CMP, T7, LIPID, URIC #### [facility] [address] [place] [address] Dr. Gwen ReedCalcium [Mass/Vol]8.7 mg/dLNormal8.5-10.1[facility] Comment on above:Performed By: #### TSH, CMP, T7, LIPID, URIC #### [facility] [address] [place] [address] Dr. Gwen ReedChloride [Moles/Vol]104 mmol/JRwipoc08-683UomMarietta Memorial Hospital Comment on above:Performed By: #### TSH, CMP, T7, LIPID, URIC #### [facility] [address] [place] [address] Dr. Gwen ReedCO2 [Moles/Vol]24.9 mmol/DPpgtvg99.0-32.0The [facility] Comment on above:Performed By: #### TSH, CMP, T7, LIPID, URIC #### [facility] [address] [place] [address] Dr. Gwen ReedCreatinine [Mass/Vol]1.00 mg/dLNormal0.70-1.30The [facility] HospitalComment on above:Performed By: #### TSH, CMP, T7, LIPID, URIC #### [facility] [address] [address] [address] Gwen FountainGFR-AF KOSOVAN>60Normal>=60The [facility] HospitalComment on above:Performed By: #### TSH, CMP, T7, LIPID, URIC #### [facility] [address] [address] [address] Gwen FountainGFR-NON AF KOSOVAN>60Normal>=60The [facility] HospitalComment on above:Performed By: #### TSH, CMP, T7, LIPID, URIC #### [facility] [address] [place] [address] Dr. Gwen ReedGlobulin (S) [Mass/Vol]4.2 g/dLNormalThe [facility] HospitalComment on above:Performed By: #### TSH, CMP, T7, LIPID, URIC #### [facility] [address] [address] [address] Gwen ReedGlucose [Mass/Vol]89 mg/pRHlclif48-459CmdMarietta Memorial Hospital Comment on above:Performed By: #### TSH, CMP, T7, LIPID, URIC #### [facility] [address] [address] [address] Gwen ReedPotassium [Moles/Vol]3.8 mmol/LNormal3.5-5.1[facility] Comment on above:Performed By: #### TSH, CMP, T7, LIPID, URIC #### [facility] [address] [address] [address] Gwen ReedProtein [Mass/Vol]7.7 g/dLNormal6.4-8.2The [facility] Comment on above:Performed By: #### TSH, CMP, T7, LIPID, URIC #### [facility] [address] [address] [address] Gwen ReedSodium [Moles/Vol]139 mmol/ZCxsxus176-853SgnMarietta Memorial Hospital Comment on above:Performed By: #### TSH, CMP, T7, LIPID, URIC #### [facility] [address] [address] [address] Gwen ReedUrea nitrogen [Mass/Vol]17.0 mg/dLNormal7.0-18.0The [facility] HospitalComment on above:Performed By: #### TSH, CMP, T7, LIPID, URIC #### [facility] [address] [place] [address] Dr. Gwen ReedUrea nitrogen/Creatinine [Mass ratio]17.0 mg/mgNormalThe [facility] HospitalComment on above:Performed By: #### TSH, CMP, T7, LIPID, URIC #### [facility] [address] [place] [address] Dr. Gwen Vyas 70-52-3483MSW4.036 uIU/mLNormal0.358-3.740The [facility] HospitalComment on above:Performed By: #### TSH, CMP, T7, LIPID, URIC #### [facility] [address] [place] [address] Dr. Gwen ReedURIC ACID SERUMon 29-83-7789Ahcqb [Mass/Vol]7.4 mg/dLCritically high3.5-7.2The [facility] HospitalComment on above:Performed By: #### TSH, CMP, T7, LIPID, URIC #### [facility] [address] [place] [address] Dr. Gwen Bond B12 AND FOLATEon 63-32-9163Wbgrycdcr (Vitamin B12) [Mass/Vol] 519.0 pg/zSDqblfb322.0-986.0The [facility] HospitalComment on above:Performed By: #### B12FOL, VITAD, IRON #### [facility] [address] [place] [address] Dr. Gwen ReedFOLATE3.80 ng/mLCritically low8.60-58.90The [facility] Comment on above:Performed By: #### B12FOL, VITAD, IRON #### [facility] [address] [place] [address] Dr. Gwen ReedVITAMIN D 25 OHon 71-54-5747GUW D 25-OH6.9 ng/mLNormalThe [facility] HospitalComment on above:Performed By: #### B12FOL, VITAD, IRON #### [facility] [address] [id number] Gwen ROBLEDO [facility] HospitalComment on above: Result Comment: <20 ng/mL Vit D deficient 20 - <30 ng/mL Vit D insufficient 30 - 100 ng/mL Vit D sufficient >100 ng/mL Potential ToxicityPerformed By: #### B12FOL, VITAD, IRON #### [facility] [address] [address] [address] Gwen Nolen 75-20-3903Khkcg [id number]#1.00CD:[address] [place], [place] [address]Physician Referralon 75-14-0357Kvjsovwmt Referral [id number]#1.00CD:[address] [place], [place] [address]Ambulatory Clinical Summaryon 04-47-7229Qkkmmmvmeh Clinical Summary {xs-60-h2-7m-xd-70-7c-32-0q-77-1k-mc-ba-c4-46-93}CD:[id number] Medical Specialty Hospital - TrumbullGastroenterology Office/Clinic Noteon 57-70-2847Jzjrkhmzcpvqgktd Office/Clinic NoteChief Complaint 2 week follow up History of [...] acute distress Eyes: extraocular movements intact. Non-Icteric Pulmonary/Respiratory: No cough noted during interview. Normal Respiratory [...] water, # 160 cap(s), Refills(s) 1, [id number], 182, cm, 04/04/20 13:43:00 EST, Height/Length Dosing, 174.1, kg, 04/04... 2. Anal pain (K62.89: Other specified diseases of anus and rectum) Hemorrhoids VS anal fissure Partially improved with Anusol/MiraLAX/fiber colonoscopy 10/04/19 which showed some prominent rectal veins, some perianal irritation, no ulcerations or bleeding. Follow-up With When Contact Information Yvon Tolliver MD In 2 weeks [address] [place] [address]- Additional Instructions: Problem List/Past Medical [...] Tonsillectomy (2017), Manipulation of deviated nasal septum (2015), Repairof multiple tendons in the flexor compartment of [...] Diabetes mellitus type 2: Mother. Heart disease: Mother.[facility] - TrumbullComment on above:Result Comment: Electronically Signed By: Sahil Velasco MD, Yvon\.br\Date and Time Signed: 04/04/20 14:18 ESTAmbulatory Clinical Summaryon 93-48-7171Hagivzgrbx Clinical Summary{[id number]-[id number]}CD:[id number] [facility]on 03-21-2020 Gastroenterology Office/Clinic NoteChief Complaint 4 week f/u History of Present Illness This is a 19 year old male with PHX of bladder CA, Bipolar disorder and Asperger?s disorder who presents today for follow-up Rectal bleeding, started 09/2019, I put him on fiber but this did not help. He saw Dr Diaz at [facility] 09/25/19, had a colonoscopy 10/04/19 which [...] acute distress Eyes: extraocular movements intact. Non-Icteric Pulmonary/Respiratory: No cough noted during interview. Normal Respiratory [...] Daily, # 255 gram, Refills(s) 3, [id number], 182, cm, 03/21/20 13:54:00 EST, Height/Length Dosing, 175, kg, 03/21/20 13:54:00 EST, Weight Dosing 2. Anal pain (K62.89: Other specified diseases of anus and rectum) ? hemorrhoids vs anal fissure Ordered: hydrocortisone topical, 25 mg = 1 supp, Rectal, BID, X 7 day(s), # 14 supp, Refills(s) 0, Pharmacy:[facility] #[id number], 182, cm, 03/21/20 13:54:00 EST, Height/Length Dosing, 175, kg, 03/21/20 13:54:00 EST, Weight Dosing 3. Constipation (K59.00: Constipation, unspecified) Uncontrolled MiraLAX Metamucil Follow-up With When Contact Information Yvon Tolliver MD In 2 weeks [address] [place] [address]- Additional Instructions: Problem List/Past Medical History Ongoing [...] Tonsillectomy (2017), Manipulation of deviated nasal septum (2015), Repairof multiple tendons in the flexor compartment of [...] Diabetes mellitus type 2: Mother. Heart disease: Mother.[facility] TrumbullComment on above:Result Comment: Electronically Signed By: Sahil Velasco MD, Yvon\.br\Date and Time Signed: 03/21/20 19:32 ESTAmbulatory Clinical Summaryon 62-30-2640Rmznjasrjy Clinical Summary{[id number]}CD:[id number] [facility]on 02-19-2020 Gastroenterology Office/Clinic NoteChief Complaint Self referred for rectal bleeding History of Present Illness This is a 19 year old male with PHX of bladder CA, Bipolar disorder and Asperger?s disorder who presents today self-referred for complaints of, Rectal bleeding, started in September, intermittent, bright and dark red blood, rectal pain after a BM He saw Dr Diaz at [facility] 09/25/19, had a colonoscopy 10/04/19 which [...] Probably hemorrhoids vs anal fissure colonoscopy at [place] by Dr. Diaz 09/2019: prominent rectal veins and perianal irritation Average risk Metamucil H&H If no improvement repeat colonoscopy Ordered: psyllium, 1,050 mg = 2 cap(s), Oral, Daily, Take 2 hour apart from the other medications with at least 8 ounces of water, # 160 cap(s), Refills(s) 1, Pharmacy: [facility] #[id number], 182.9, cm,02/19/20 8:51:00 EST, Height/Length Dosing, 172, kg, 02/18/... Hemoglobin and Hematocrit Follow-up With When Contact Information Yvon Tolliver MD In 4 weeks [address] [place] [address]- Additional Instructions: Problem List/Past Medical History Ongoing [...] Tonsillectomy (2017), Manipulation of deviated nasal septum (2015), Repairof multiple tendons in the flexor compartment of [...] Diabetes mellitus type 2: Mother. Heart disease: Mother.[facility] TrumbullComment on above:Result Comment: Electronically Signed By: Sahil Velasco MD, Yvon\.kaylee\Date and Time Signed: 02/19/20 09:15 ESTOutside Colonoscopyon 05-06-3641Hwqukmx Colonoscopy [id number]:127[facility] TrumbullConsenton 05-94-7790Oobdsom [id number]#1.00CD:127[facility] TrumbullConsultation Noteon 97-89-5406Hdvmljscuulw Note [id number]#1.00CD:127NormalFisher [facility]ist [facility] Medical CenterURGICAL PATHOLOGYon 79-67-9802BKUAALTT PATHOLOGYSpecimen #: [id number] Submitting Physician: GWEN REED M.D. FINAL DIAGNOSIS Outside slide consultation, [place], [place] Urinary bladder, biopsy ([id number], A1-A4; 01/18/2019) - Non-invasive papillary urothelial carcinoma, [...] (Electronic Signature) SPECIMEN SUBMITTED A: 4 SLIDES ([id number]) CLINICAL DATA None provided. Patient ID #: Date of Report: 01/27/2019 Date of Procedure: 01/26/2019 Date of Receipt: 01/26/2019 Submitted by: GWEN REED M.D. Location: Diagnostic interpretation performed at [facility], [address] [place] [address]. CLIA Number: [id number] Clinic Reference Lab Comment on above:Performed By: #### S #### See report for performing lab information. Vital Signs Date TimeVital SignValuePerforming SsntpzhtnXcytgkzz57-35-6587 09:02-0400Body zkiivh808.88 cmSelect [facility]04-01-2025 09:02-0400Body mass index (BMI) [Ratio]53.1 kg/k6RmgzhrprxSelect Medical [facility]04-01-2025 09:02-0400Body kobhnb049.8 kgSelect Medical [facility]health [facility] Hospital01-21-2025 13:08-0500Body ssicim595.88 cmSelect Medical [facility]01-21-2025 13:08-0500Body mass index (BMI) [Ratio]53.1 kg/t4JabdndqosSelect Medical Trihealth Rehabilitation Hospital01-21-2025 13:08-0500Body .8 [facility] Encounters Encounter DateEncounter TypeCare ProviderFacilityStart: 07-13-2024 End: 23-27-7024nnbwufptgcQFAPBYZIDunlap [facility] Hospital Start: 06-20-2024 End: 80-83-5643ibdfopvtklYrxnmcslqMadison Health Work Phone: Start: 06-20-2024 End: 16-04-7349Nifetgy encounter procedureDepartment [facility] Work Phone: Start: 04-11-2024 End: 09-37-4748ijynochgxfUbpvukaduProtestant Hospital Work Phone: Start: 04-11-2024 End: 24-50-4891Blkjvvv encounter procedureDepartment [facility] Work Phone: Start: 08-15-2023 End: 16-07-3297Rsknpoktp department patient visitHAN PRITCHARDKettering Health Hamiltontart: 59-61-6339kioidyonzwBqualsxjott Abdelaziz Facility:[facility] Centertart: 38-83-9756hvhqrmidlfPN JESUS ALBERTO HOY .Facility:L6Flxso: 85-12-7739Qkbersjjt for general adult medical examination without abnormal findingsDR JESUS ALBERTO HOY .[facility]woodstart: 03-27-2022 End: 80-36-1241xdfbibsgafBG DOCTOR MISCFacility:B3Nkzzk: 03-27-2022 End: 88-30-3581Iyrorquwz for general adult medical examination without abnormal findingsDR JESUS ALBERTO HOY .Facility:B5Jiblk: 98-80-3892fmpdcxqgivHI JESUS ALBERTO HOY . Facility: Plan of Treatment DateCare ActivityDeThe [facility] Payers DatePayer CategoryPayerPolicy [id number] 2000Unknown [id number] [id number] [id number] [id number]-[id number] [id number] Social History DateTypeDetailFacilityStart: 04-11-2024 End: 79-24-4484Vkircdx smoking status NHISSmoker (finding)[facility] Centertart: 04-11-2024 End: 61-56-1275WlzGill (finding)[facility] Centertart: 64-65-0436Qli Assigned At [facility] Clinical Note 07-13-2024 Note Date & SzfnYaroKhqiherl59-67-9396 NotePatient: Terri Ramos Procedure Summary Date: 07/13/24 Room / Location: [facility] In[facility] [place] Anesthesia Start: 1218 Anesthesia Stop: 1314 Procedure: DIAGNOSTIC COLONOSCOPY Diagnosis: Hemorrhage of rectum and anus Scheduled Providers: Devante Zavala MD; ANTHONY Kent; Susan Braswell MD Responsible Provider: Devante Zavala MD Anesthesia Type: MAC ASA Status: 3 Anesthesia Type: MAC Vitals Value Taken Time BP 113/68 07/13/24 1349 Temp 36.3 ???C (97.3 ???F) 07/13/24 1349 Pulse 85 07/13/24 1349 Resp 12 07/13/24 1349 SpO2 95 % 07/13/24 1349 Anesthesia Post Evaluation Patient location during evaluation: PACU Patient participation: complete - patient participated Level of consciousness: awake Pain management: adequate Cardiovascular status: acceptable Respiratory status: acceptable Hydration status: acceptable Comments: Patient was evaluated for PACU discharge prior to leaving. Note was inputted later. Patient is hemodynamically stable and is able to be discharged from PACU per anesthesia protocol. No notable events documented.[facility] Clinical Note 07-13-2024 Note Date & KjpzSrzoExkmzsdz67-35-9120 NoteGastroenterology History and Physical Note IDENTIFYING DATA PATIENT: Terri Ramos HISTORY OF PRESENT ILLNESS Terri Ramos is a 23 y.o. male who presents for colonoscopy for further evaluation of rectal bleeding. Patient reports of chronic rectal bleeding with the blood covering the stool. He has a regular bowel movement with varying consistency. He has a bowel movement every other day. Patient reports that he does not have to strain during defecation patient reports that bleeding sometimes is painful and sometimes he notes that he drips blood from the rectum. Patient denies any family history of colon cancer. He denies any weight loss. He denies any other GI complaints. Blood work on 06/19/2024 revealed a hemoglobin level of 13.6. Patient reports that he had a colonoscopy before. Colonoscopy on 10/04/2019 showed some prominent rectal veins and perianal irritation. PAST MEDICAL, SURGICAL, FAMILY, and SOCIAL HISTORY Past Medical History: Past Medical History: Diagnosis Date Anxiety Bipolar disorder (CMS/HCC) Cancer (CMS/HCC) 2019 bladder cancer Depression Past Surgical History: Past Surgical History: Procedure Laterality Date ADENOIDECTOMY BLADDER SURGERY removed tumor surgery 2019 CYSTOSCOPY KIDNEY STONE SURGERY LITHOTRIPSY OTHER SURGICAL HISTORY both arm surgery SEPTOPLASTY TONSILLECTOMY Family History: No family history on file. Social History: Social History Tobacco Use Smoking status: Every Day Types: Cigarettes Start date: 2016 Smokeless tobacco: Never Substance Use Topics Alcohol use: Not Currently Drug use: Yes Types: Marijuana Comment: daily Allergies: No Known Allergies Home Medications: Prior to Admission medications Medication Sig Start Date End Date Taking? Authorizing Provider buPROPion XL (Wellbutrin XL) 300 mg 24 hr tablet Take 300 mg by mouth at bedtime. Yes Historical Provider, cloNIDine (Catapres) 0.2 mg tablet Take 0.2 mg by mouth at bedtime. Yes Historical Provider, LORazepam (Ativan) 2 mg tablet Take 1 tablet by mouth every 6 (six) hours. 05/18/24 Yes Historical Provider, OXcarbazepine (Trileptal) 300 mg tablet Take 300 mg by mouth in the morning and at bedtime. Yes Historical Provider, ARIPiprazole (Abilify) 2 mg tablet Take 2 mg by mouth at bedtime. 06/17/24 Historical Provider, bisacodyl (Dulcolax) 5 mg EC tablet Take 2 tablets (10 mg) by mouth on Tuesday, July 09, 2024 in the morning. Take 4 tablets (20 mg) by mouth on Wednesday, July 10, 2024 at 3:00 pm. Do not start before July 09, 2024. 07/09/24 07/10/24 Susan Braswell MD magnesium citrate solution Drink 296 mL by mouth on Tuesday, July 09, 2024 at 4:00 pm. Do not start before July 09, 2024. 07/09/24 07/09/24 Susan Braswell MD polyethylene glycol (GoLYTELY) 236-22.74-6.74 -5.86 gram solution Start drinking 8 oz every 15 mins on 07-10-24 at 6 pm until 1/2 the solution is gone. Then drink 8 oz every 15 mins on 07-11-24 at 1:45 am until the remaining solution is gone. Do not start before July 10, 2024. 07/10/24 07/11/24 Susan Braswell MD REVIEW OF SYSTEMS See HPI, otherwise ROS negative as below Review of Systems Constitutional: Negative. Respiratory: Negative. Cardiovascular: Negative. Genitourinary: Negative. Skin: Negative. OBJECTIVE DATA Vitals: BP (!) 144/101 Pulse 107 Temp 36.4 ???C (97.5 ???F) (Tympanic) Resp 18 Ht 1.829 m (6') Wt (!) 179 kg (393 lb 15.4 oz) SpO2 98% BMI 53.43 kg/m??? Physical Exam HENT: Head: Normocephalic and atraumatic. Cardiovascular: Rate and Rhythm: Normal rate. Pulmonary: Effort: Pulmonary effort is normal. Abdominal: Palpations: Abdomen is soft. Tenderness: There is no abdominal tenderness. Skin: General: Skin is warm and dry. Neurological: Mental Status: He is alert. Mental status is at baseline. LABS CBC: No results found for: WBC , RBC , HGB , HCT , MCV , RDW , PLT PT/INR No results found for: PT , INR BMP: No results found for: NA , K , CL , BUN , CREATININE , EGFR , GLU LFTs: No results found for: BILITOT , BILIDIR , ALKPHOS , GGT , AST , ALT , ALBUMIN , PROT B12/Folate/Iron studies: No results found for: OMUNJMVF84 , FOLATE , IRON , TIBC , UIBC , IRONSAT , FERRITIN ASSESSMENT AND PLAN Rectal bleeding Plan: [facility] 07-13-2024 Note Date & PlbpNheqNjawypmz19-53-6068 NotePatient: Terri Ramos Procedure Information Date/Time: 07/13/24 1245 Scheduled providers: Devante Zavala MD; ANTHONY Kent; Susan Braswell MD Procedure: DIAGNOSTIC COLONOSCOPY Location: [facility] [place] Relevant Problems Anesthesia (-) History of anesthesia complications Past Medical History: Diagnosis Date Anxiety Bipolar disorder (CMS/HCC) Cancer (CMS/HCC) 2019 bladder cancer Depression Past Surgical History: Procedure Laterality Date ADENOIDECTOMY BLADDER SURGERY removed tumor surgery 2019 CYSTOSCOPY KIDNEY STONE SURGERY LITHOTRIPSY OTHER SURGICAL HISTORY both arm surgery SEPTOPLASTY TONSILLECTOMY Social History Tobacco Use Smoking status: Every Day Types: Cigarettes Start date: 2016 Smokeless tobacco: Never Substance Use Topics Alcohol use: Not Currently Drug use: Yes Types: Marijuana Comment: daily Labs No results found for: WBC , HGB , HCT , PLT No results found for: NA , K , CO2 , CL , BUN , CREATININE , GLUCOSE , CALCIUM No results found for: PT , INR , PTT No echocardiogram results found for the past 12 months Clinical information reviewed: Tobacco Allergies Med Hx Surg Hx Fam Hx Soc Hx Physical Exam Airway Mallampati: IV TM distance: <3 FB Neck ROM: limited Comments: Limited mouth opening. Cardiovascular Rhythm: regular Rate: normal Dental Comments: Grossly unremarkable Pulmonary Breath sounds clear to auscultation Abdominal Anesthesia Plan ASA 3 MAC (Patient chart (PMH/PSH/Social/Meds/Allergies/etc) was reviewed prior to patient interview. Painless rectal bleeding, morbid obesity, noncompliant [place] Plan Monitored Anesthesia Care (MAC) with backup general anesthesia if needed. Specifically discussed the risks of oral/airway instrumentation (if needed) including (but not limited to) lip, gum, and teeth trauma. This has the potential to cause significant dental damage including tooth loss. Patient expressed understanding and wished to proceed.) intravenous induction Anesthetic plan and risks discussed with patient. Plan discussed with ANTHONY. Additional Equipment RequestsMer[facility] Evaluation note 04-11-2024 Note Date & CviaYhgtVxzoppfh74-92-4696 Evaluation note* Diagnosis Onset Date Resolution Status Admit Date Rectal bleeding acuteJanuary 2024 1:00pmRectal bleedingacuteApril 2024 8:57am [facility] Work Phone: Evaluation note Note Date & TypeNoteFacilityEvaluation note* Diagnosis Onset Date Resolution Status Admit Date Rectal bleeding acuteJanuary 2024 1:00pm [facility] Work Phone: Summary Purpose Family History No Family History Records Found Relationship Condition Age at Onset Recorded Date/T paola mother Diabetes mellitus Unknown Heart diseaseUnknownHypertensionUnknown Advance Directives No Advanced Directives Records Found Advance Directive Response Recorded Date/ Time Advance Directives No February 22, 2024 9:12am Advance Directive Response Recorded Date/ Time Advance Directives No February 22, 2024 10:12am Chief Complaint and Reason for Visit Chief Complaint Admit Date Refer by Dr Sweeney: rectal bleeding April 11, 2024 1:00pm Reason for Visit Admit Date Rectal bleeding April 11, 2024 1 :00pm Chief Complaint Admit Date Refer by Dr Sweeney: rectal bleeding April 11, 2024 1:00pm 2 month follow up June 20, 2024 8:57 am Reason for Visit Admit Date Rectal bleeding April 11, 2024 1 :00pm Rectal bleeding June 20, 2024 8:57 am Additional Source Comments (unrecognized sect ion and content) No Status Records FoundNo Status Records FoundNo Status Records FoundNo Status Records FoundNo Status Records FoundNo Status Records Found INFORMATION SOURCE (unrecogn ized section and content) DATE CREATED AUTHOR 01/27/2019 [facility] DATE CREATED AUTHOR AUTHOR'S ORGANIZ ATION 09/16/2020 [facility] DATE CREATED AUTHOR AUTHOR'S ORGANIZ ATION 07/07/2022 [facility] DATE CREATED AUTHOR AUTHOR'S ORGANIZ ATION 04/19/2023 [facility] DATE CREATED AUTHOR AUTHOR'S ORGANIZ ATION 08/16/2023 [facility] DATE CREATED AUTHOR AUTHOR'S ORGANIZ ATION 07/18/2024 [facility] Care Teams (unrecognized sec tion and content) Team Status: Active Member Role Status Dates NON STAFF Primary Care Provider Active Team Status: Inactive Member Role Status Dates NON STAFF Primary Care Provider Active Start: April 11, 2024 End: April 11, 2024Suhail Cade ProviderActiveStart: April 11, 2024 End: April 11, 2024DARLINE Simsefmarissa ProviderActiveStart: April 11, 2024 End: Micaela 21st, 2025 Team Status: Inactive Member Role Status Dates NON STAFF Primary Care Provider Active Start: June 20, 2024 End: June 20, 2024Suhail Cade ProviderActiveStart: June 20, 2024 End: June 20, 2024 Goals (unrecognized section and content) Goals may be documented in a n alternate sectionGoals may be documented in an alternate section FOR RECORDS PERTAINING TO PATIENTS WHO ARE [...] BE BASED ON THE PRIMARY CLINICAL RECORDS. [facility]. provides no warranty or guarantee of the accuracy or completeness of information in this document.
[2025-02-21 05:07] LABS: Oxcarbazepine (Trileptal),S 9 ug/mL (10-35)
== END 2025-02-19 09:27 | disposition home or self-care (01) ==
LOC: LAB 09:27
PROVIDERS: PCP Family Medicine; Visit Provider Family Medicine
DX: F84.5 Asperger's syndrome (principal)
CPT/HCPCS: 36415; 80183